=== PATIENT | female | born 1945 | race African-American/Black ===

== ENCOUNTER 2018-03-11 19:38 | Inpatient (IN) ==
[2018-03-11] MEDS ORDERED: ASPIRIN PO ONE (20:10)
--- NOTE | 2018-03-11 20:17 | EKG Report ---
Test Performed on : 03/11/2018 7:59:55 PM Test Reason : cp Blood Pressure : / mmHG Vent. Rate : 105 BPM Atrial Rate : 105 BPM P-R Int : 148 ms QRS Dur : 136 ms QT Int : 378 ms P-R-T Axes : 051 -87 077 degrees QTc Int : 499 ms Atrial-sensed ventricular-paced rhythm Abnormal ECG When compared with ECG of 11-MAR-2018 18:48, (Unconfirmed) Vent. rate has decreased BY 8 BPM Unconfirmed Result
[2018-03-11] MEDS ORDERED: XYLOCAINE-MPF 1%/EPI 1:200,000 INJ ONE (20:21)
[2018-03-11] MEDS ORDERED: MARCAINE 0.5% INJ ONE (20:22)
[2018-03-11 20:27] LABS: BASO# 0.02 X1000 (0.0-0.2); BASO% 0.1 % (0.0-0.8); EOS# 0.14 X1000 (0.0-0.7); HEMATOCRIT 30.1 % (37.0-47.0); HEMOGLOBIN 9.9 g/dL (12.0-16.0); IMM GRAN# 0.04 X1000 (0.0-0.04); IMM GRAN% 0.3 % (0.0-0.5); LYMPH# 2.06 X1000 (1.2-3.4); LYMPH% 15.3 % (20.5-51.1); MCH 29.6 PG (27-31); MCHC 32.9 g/dL (33-37); MCV 90.1 FL (81-99); MONO# 1.91 X1000 (0.11-0.59); MONO% 14.2 % (1.7-9.3); NEUT% 69.1 % (42.2-75.2); PLT 190 X1000 (130-400); RBC 3.34 XMIL (4.2-5.4); RDW 14.9 % (11.5-14.5); WBC 13.47 X1000 (4.8-10.8)
[2018-03-11] MEDS ORDERED: KENALOG-40 IM ONE (20:29)
--- NOTE | 2018-03-11 20:47 | Diag Imaging Result Doc PS360 ---
EXAM: CHEST-2 VIEWS HISTORY: cp TECHNIQUE: Chest two views COMPARISON: 02/08/2018 FINDINGS: The lungs are well expanded. The heart is not enlarged. There is a left-sided pacemaker. The vessels are not distended. There are infiltrates in the lower right lung. No pleural effusions. IMPRESSION: Basilar infiltrates. Electronically signed by Lai Marquez 03/11/2018 8:45 PM
[2018-03-11 20:50] LABS: ALBUMIN 3.3 g/dL (3.5-5.0); CALCIUM 8.5 mg/dL (8.8-10.2); CREATININE 1.5 mg/dL (0.5-0.9); POTASSIUM 4.2 mmol/L (3.5-5.1); TOTAL BILIRUBIN 0.4 mg/dL (0.20-1.00); TOTAL PROTEIN 6.4 g/dL (6.3-8.3)
[2018-03-11 20:58] LABS: PROTIME 13.7 Seconds (11.0-16.0)
[2018-03-11 20:59] LABS: PTT 26.5 Seconds (22.3-41.8)
[2018-03-11 21:11] LABS: CK INDEX 1.3 (0.0-2.5); CK-MB 2.71 ng/mL (0.0-5.0)
[2018-03-11 22:07] LABS: BILIRUBIN URINE NEGATIVE (NEGATIVE); BLOOD URINE NEGATIVE (NEGATIVE); CLARITY CLEAR (CLEAR); COLOR YELLOW; GLUCOSE URINE NEGATIVE (NEGATIVE); KETONE URINE NEGATIVE (NEGATIVE); LEUKOCYTES URINE TRACE (NEGATIVE); NITRITE URINE NEGATIVE (NEGATIVE); PH URINE 6.5; PROTEIN URINE TRACE mg/dL (NEGATIVE); SP GRAVITY URINE 1.005; UROBILINOGEN URINE NORMAL
[2018-03-11] MEDS ORDERED: DUONEB (A & A) ONE (22:13)
[2018-03-11 22:15] LABS: URINE BACTERIA NEGATIVE /HFP; URINE EPITHELIAL CELLS <10 /HPF (<10); URINE RBC <10 /HPF (<10); URINE SMALL ROUND CELLS TRANSITIONAL PRESENT; URINE SOURCE CLEAN CATCH; URINE WBC <10 /HPF (<10)
[2018-03-11] MEDS ORDERED: DUONEB (A & A) INH ONE (22:16)
[2018-03-11] MEDS ORDERED: LASIX IV ONE (22:19)
[2018-03-11] MEDS ORDERED: ALDACTONE PO ONE (22:19)
--- NOTE | 2018-03-11 22:49 | PROVIDER DOCUMENTATION ---
This chart was entered by Yen Candelario Scribe, acting as scribe for Ricardo Arteaga MD. HPI-Chest Pain - General Chief Complaint: Chest Pain Stated Complaint: CP Time Seen by Provider: 03/11/18 19:50 Source: patient, EMS, other ([facility]) Allergies/Adverse Reactions: Patient Allergies Allergy/AdvReac Type Severity Reaction Status Date / Time bee venom protein (honey bee) Allergy Unknown Unknown Verified 02/11/18 17:28 cephalexin monohydrate * Allergy Unknown RASH Verified 02/11/18 17:28 [From Keflex] Penicillins Allergy Unknown ITCHING Verified 02/11/18 17:28 cephalexin [From Keflex] Allergy ITCHING Verified 03/11/18 20:09 Home Medications: Home Medication List Medication Instructions Recorded Confirmed Last Taken Type Aspirin 81 mg PO QHS 30 Days chewtab 05/25/16 03/11/18 Unknown Rx Carvedilol [Coreg] 12.5 mg PO Q12HR@0700,1900 #60 05/25/16 03/11/18 Unknown Rx tablet Melatonin 5 mg PO QHS 30 Days tablet 05/25/16 03/11/18 Unknown Rx [place]-3 Fatty Acids [Fish Oil 1,000 mg PO DAILY 30 Days capsule 05/25/16 Unknown Rx Concentrate] Polyethylene Glycol 3350 [Miralax] 17 gm PO QAM 30 Days powder, 05/25/16 Unknown Rx packet B Complex with Vitamin C [Super B 1 each PO DAILY 02/08/18 03/11/18 Unknown History with Vit C] Cholecalciferol (Vitd3)/Vit K2 [D3 2 each PO DAILY 02/08/18 03/11/18 Unknown History + K2 Dots 1,000 Units Tab] Furosemide [Lasix] 40 mg PO BID 02/08/18 03/11/18 Unknown History Insulin Glargine [Lantus] 30 unit SUBQ BID 02/08/18 03/11/18 Unknown History Levothyroxine [Synthroid] 75 microgm PO QAM 02/08/18 03/11/18 Unknown History Nitroglycerin 0.4 mg SL PRN PRN 02/08/18 03/11/18 Unknown History PRAVAstatin [Pravachol] 40 mg PO DAILY 02/08/18 03/11/18 Unknown History Ferrous Sulfate 325 mg PO DAILY tablet 02/11/18 03/11/18 Unknown Rx - History of Present Illness-CP Nature of Presenting Problem: 72 y/o female presents to ED with intermittent "stretching" chest pain onset 3 days ago. Pt reports associated wheezing, nasal drainage, and cough. Chest wall tenderness upon examination. Pt is alert and oriented. Location: reports: substernal Chest Pain Radiation: reports: no radiation Quality of Pain: reports: other ("stretching") Severity in ED: mild Onset/Duration: 3 days ago Timing: gone now, intermittent Context/Activities at Onset: reports: none Modifying Factors: worse with: palpation Nitro Today/Relief: 0.4 mg x 3, provided by EMS Aspirin Treatment Today: no aspirin today Prior Chest Pain/Cardiac Workup: reports: other Similar Symptoms Previously?: No Recently Seen Here or By Another Healthcare Provider: No Review of Systems - Adult - REVIEW OF SYSTEMS - ADULT Constitutional: denies: chills, fever Eyes: reports: no symptoms reported Ears, Nose, Mouth & Throat: reports: sinus problem. denies: epistaxis Cardiovascular: reports: chest pain. denies: palpitations Respiratory: reports: cough, wheezing. denies: shortness of breath Gastrointestinal: denies: abdominal pain, diarrhea, nausea, vomiting Genitourinary: reports: no symptoms reported Musculoskeletal: denies: back pain, joint pain Integumentary: reports: no symptoms reported Neurological: denies: dizziness/vertigo, seizure Psychiatric: reports: no symptoms reported Endocrine: reports: no symptoms reported Hematologic/Lymphatic: reports: no symptoms reported Allergic/Immunologic: reports: no symptoms reported All Other Systems: Reviewed and Negative Past History - Adult - PAST MEDICAL HISTORY-ADULT Review of Records: reports: Old Records Reviewed, Nursing Assessment Review, Medications Reviewed Major Childhood Illnesses: reports: denies history Cardiovascular: reports: CHF, HTN, hyperlipidemia, pacemaker (/defib) Respiratory: reports: denies history, asthma Gastrointestinal: reports: GERD Obstetrical/Gynecological: reports: denies history, other (breast cancer) Genitourinary: reports: denies history, kidney disease Musculoskeletal: reports: arthritis Neurological: reports: denies history Psychiatric: reports: schizophrenia Endocrine/Immune: reports: denies history, Diabetes, thyroid disorder Other Conditions: reports: denies history, cataract/glaucoma - PRIOR SURGERIES/PROCEDURES Surgical/Procedure History: reports: appendectomy, pacemaker (/defib), BTL, joint replacement (hip), other (cataract removal) - IMMUNIZATION STATUS Childhood Immunizations: See Nurse Assessment Flu Vaccine: See Nurse Assessment - FAMILY HISTORY Family History: reviewed, not pertinent - SOCIAL HISTORY Smoking: quit greater than 1 year Substance Use: none/never Alcohol Use Frequency: never Living Situation: family Physical Exam-General - PHYSICAL EXAM-ADULT Initial Vital Signs Reviewed: Yes - CONSTITUTIONAL General Appearance: appears well, alert, no apparent distress - EYES Eyes: PERRL/EOMI, pink conjunctivae - HEAD, EARS, NOSE, MOUTH & THROAT HENMT: normocephalic/atraumatic, moist mucous membranes, normal ENT inspection - NECK Neck: non-tender, full range of motion - RESPIRATORY Respiratory: lungs clear, normal breath sounds, other (chest wall tenderness) - CARDIOVASCULAR Cardiovascular: normal peripheral pulses, regular rate, rhythm - GASTROINTESTINAL (ABDOMEN) Abdominal Exam: normal bowel sounds, non tender, soft - MUSCULOSKELETAL Back Exam: normal inspection, no CVA tenderness Extremity: normal range of motion, non-tender, normal gait - SKIN Integumentary: normal color, warm/dry - NEUROLOGIC Neurologic: grossly normal - PSYCHIATRIC Psych/Mental Status: normal mood/affect, normal thought content, normal thought process Progress - PLAN OF CARE/RESULTS Progress/Plan/Lab Results: Vital Signs - 8 hr 03/11/18 19:44 03/11/18 22:20 Temperature 98.9 F Pulse Rate 108 H 102 H Respiratory Rate 18 18 Blood Pressure 149/76 O2 Sat by Pulse Oximetry 100 99 Laboratory Results - last 24 hr 03/11/18 03/11/18 03/11/18 19:50 19:50 19:50 WBC 13.47 H RBC 3.34 L Hgb 9.9 L Hct 30.1 L MCV 90.1 MCH 29.6 MCHC 32.9 L RDW Std Deviation 14.9 H Plt Count 190 MPV 11.0 H Immature Gran % (Auto) 0.3 Neut % (Auto) 69.1 Lymph % (Auto) 15.3 L Mason % (Auto) 14.2 H Eos % (Auto) 1.0 Baso % (Auto) 0.1 Immature Gran # (Auto) 0.04 Neut # (Auto) 9.30 H Lymph # (Auto) 2.06 Mason # (Auto) 1.91 H Eos # (Auto) 0.14 Baso # (Auto) 0.02 PT INR PTT (Actin FS) Sodium 132 L Potassium 4.2 Chloride 96 L Carbon Dioxide 24 L Anion Gap 12 BUN 27 H Creatinine 1.5 H Estimated GFR/1.73 m2 34 BUN/Creatinine Ratio 18 Glucose 205 H D Calculated Osmolality 276 Calcium 8.5 L Total Bilirubin 0.40 AST 42 H ALT 65 H Alkaline Phosphatase 116 H Creatine Kinase 204 H Creatine Kinase Index 1.3 CK-MB (CK-2) 2.71 Troponin T < 0.010 Aka-J-Vnuaweebrzs Pept Total Protein 6.4 Albumin 3.3 L Globulin 3.0 Albumin/Globulin Ratio 1.0 Plasma Lactate Urine Source Urine Color Urine Clarity Urine pH Ur Specific [place] Urine Protein Urine Ketones Urine Blood Urine Nitrite Urine Bilirubin Urine Urobilinogen Urine Microscopic RBC Urine WBC Urine Microscopic WBC Ur Epithelial Cells Small Round Cells Urine Bacteria Urine Glucose 03/11/18 03/11/18 03/11/18 19:50 19:50 21:00 WBC RBC Hgb Hct MCV MCH MCHC RDW Std Deviation Plt Count MPV Immature Gran % (Auto) Neut % (Auto) Lymph % (Auto) Mason % (Auto) Eos % (Auto) Baso % (Auto) Immature Gran # (Auto) Neut # (Auto) Lymph # (Auto) Mason # (Auto) Eos # (Auto) Baso # (Auto) PT 13.7 INR 1.00 PTT (Actin FS) 26.5 Sodium Potassium Chloride Carbon Dioxide Anion Gap BUN Creatinine Estimated GFR/1.73 m2 BUN/Creatinine Ratio Glucose Calculated Osmolality Calcium Total Bilirubin AST ALT Alkaline Phosphatase Creatine Kinase Creatine Kinase Index CK-MB (CK-2) Troponin T Eqh-Q-Ymombvyszvx Pept 1186 H Total Protein Albumin Globulin Albumin/Globulin Ratio Plasma Lactate 1.0 Urine Source Urine Color Urine Clarity Urine pH Ur Specific [place] Urine Protein Urine Ketones Urine Blood Urine Nitrite Urine Bilirubin Urine Urobilinogen Urine Microscopic RBC Urine WBC Urine Microscopic WBC Ur Epithelial Cells Small Round Cells Urine Bacteria Urine Glucose 03/11/18 22:00 WBC RBC Hgb Hct MCV MCH MCHC RDW Std Deviation Plt Count MPV Immature Gran % (Auto) Neut % (Auto) Lymph % (Auto) Mason % (Auto) Eos % (Auto) Baso % (Auto) Immature Gran # (Auto) Neut # (Auto) Lymph # (Auto) Mason # (Auto) Eos # (Auto) Baso # (Auto) PT INR PTT (Actin FS) Sodium Potassium Chloride Carbon Dioxide Anion Gap BUN Creatinine Estimated GFR/1.73 m2 BUN/Creatinine Ratio Glucose Calculated Osmolality Calcium Total Bilirubin AST ALT Alkaline Phosphatase Creatine Kinase Creatine Kinase Index CK-MB (CK-2) Troponin T Euj-P-Kwilzjgeiam Pept Total Protein Albumin Globulin Albumin/Globulin Ratio Plasma Lactate Urine Source CLEAN CATCH Urine Color YELLOW Urine Clarity CLEAR Urine pH 6.5 Ur Specific [place] 1.005 Urine Protein TRACE A Urine Ketones NEGATIVE Urine Blood NEGATIVE Urine Nitrite NEGATIVE Urine Bilirubin NEGATIVE Urine Urobilinogen NORMAL Urine Microscopic RBC <10 Urine WBC TRACE A Urine Microscopic WBC <10 Ur Epithelial Cells <10 Small Round Cells TRANSITIONAL PRESENT Urine Bacteria NEGATIVE Urine Glucose NEGATIVE Orders Category Date Time Status Cardiac Monitoring DIRECTED Care 03/11/18 20:43 Active IV Insertion ORDERED Care 03/11/18 20:43 Completed Notify MD of + Sepsis Screen NOW Care 03/11/18 20:43 Active Notify Physician As Ordered Care 03/11/18 20:43 Active cxr [CHEST-2 VIEWS] [RAD] Stat Exams 03/11/18 19:58 Completed BLOOD CULTURE [BLDCUL] Stat Lab 03/11/18 16:30 Ordered BNP [PRO B-NATRIURETIC PEPTIDE] Stat Lab 03/11/18 19:50 Completed CBC WITH ELECTRONIC DIFF [HEME] Stat Lab 03/11/18 19:50 Completed CK PROFILE [SP CHEM] Stat Lab 03/11/18 19:50 Completed CMP [COMPREHENSIVE METABOLIC PANEL] [CHEM] Stat Lab 03/11/18 19:50 Completed LACTATE, PLASMA [CHEM] Lab 03/11/18 23:45 Uncollected LACTATE, PLASMA [CHEM] Lab 03/12/18 02:45 Uncollected LACTATE, PLASMA [CHEM] Stat Lab 03/11/18 21:00 Completed PROTIME WITH INR [COAG] Stat Lab 03/11/18 19:50 Completed PTT [COAG] Stat Lab 03/11/18 19:50 Completed TROPONIN T Stat Lab 03/11/18 19:[address] W/POSS RFLX CULT [URINALYSIS] Stat Lab 03/11/18 22:00 Completed URINE CULTURE [RM] Routine Lab 03/11/18 22:15 Ordered Albuterol 2.5MG/Ipratrop 0.5MG [Duoneb (A & A)] Med 03/11/18 22:13 Discontinued 3 ml .ROUTE .STK-MED ONE Albuterol 2.5MG/Ipratrop 0.5MG [Duoneb (A & A)] Med 03/11/18 22:16 Discontinued 3 ml INH NOW ONE Aspirin Med 03/11/18 20:10 Discontinued 324 mg PO NOW ONE Bupivacaine 0.5% [Marcaine 0.5%] Med 03/11/18 20:22 Discontinued 4 ml INJ NOW ONE Furosemide [Lasix] Med 03/11/18 22:19 Discontinued 40 mg IV NOW ONE Lidocaine Pf 1%/Epi 1:[id number] [Xylocaine-Mpf 1%/Epi 1: Med 03/11/18 20:21 Discontinued 200,000] 4 ml INJ NOW ONE Spironolactone [Aldactone] Med 03/11/18 22:19 Discontinued 25 mg PO NOW ONE Triamcinolone [Kenalog-40] Med 03/11/18 20:29 Discontinued 40 mg IM NOW ONE Aerosol Treatments Routine Oth 03/11/18 22:16 Completed Aerosol Treatments Stat Oth 03/11/18 22:16 Completed Oxygen Device Stat Oth 03/11/18 20:43 Active EKG [EKG] Stat Ther 03/11/18 19:58 Draft Heart score of 3. Result Diagrams: 03/11/18 19:50 03/11/18 19:50 - REASSESSMENT Reassessment #1 Time Reassessed: 21:43 Status: improving (pt states that the pain is mostly gone. The chest wall pain is there when palpated but not when left alone. She declines trigger point injections for the pain and is content to let it resolve on its own) Reassessment #2 Time Reassessed: 21:51 Status: improving (pt has a pleuritic like pain and a chest wall costochondritis pain. Currently no pain. She has CHF, but no previous CAD and has a defibrillator for her chf 30-35% EF and recent caridac cath hear score is 3 = low risk.) Reassessment #3 Time Reassessed: 22:46 Status: unchanged (pt got SOB going to the bathroom, so we decided to start lasix and andwatch her overnight before returning to [facility]) - EKG 1 Time of EKG reading by physician:: 19:59 EKG Read and Signed by:: Ricardo Arteaga EKG Interpretation (*Must complete 3 of following elements*): Abnormal Rate: 105 Rhythm: Atrial-sensed ventricular-paced [place]: normal QRS: normal MO Interval: normal ST Wave: normal - XRAY 1 XRAY Study: Chest Impression: Abnormal (FINDINGS: The lungs are well expanded. The heart is not enlarged. There is a left-sided pacemaker. The vessels are not distended. There are infiltrates in the lower right lung. No pleural effusions. IMPRESSION: Basilar infiltrates. Electronically signed by Lai Marquez 03/11/2018 8:45 PM ) Departure - Departure Date of Disposition Decision: 03/11/18 Time of Disposition Decision: 22:47 DIAGNOSIS: Chest wall discomfort CHF (congestive heart failure) Qualifiers: Heart failure type: unspecified Heart failure chronicity: chronic Qualified Code(s): I50.9 - Heart failure, unspecified Disposition: ADMITTED INPATIENT 09 Certified Medical Emergency: Emergent Condition: Stable Referrals and Follow-Ups: None,PCP [Primary Care Provider] - - Critical Care Note This patient required my direct & personal management of CC.: No Attestation - Physician/ RAMÓN Attestation Patient care was provided by Advanced Practice Provider:: No The physician spent face to face time with patient:: Yes Advanced Practice Provider documentation review:: Supervising physician onsite and consulted in the evaluation and care of this patient. The physician did have a face to face encounter with the patient. This chart was documented by the indicated scribe, (Yen Candelario, Toshia) and accurately reflects the services I performed and decisions made by , Ricardo Arteaga MD, as attested by the provider's signature.
[2018-03-11] MEDS ORDERED: ZAROXOLYN PO ONE (22:59)
[2018-03-12] MEDS ORDERED: NITROGLYCERIN SL PRN (08:32)
[2018-03-12] MEDS: PRAVACHOL PO SCH (09:51)
[2018-03-12] MEDS: BASAGLAR SUBQ SCH ×2 (09:51→21:26)
[2018-03-12] MEDS: FERROUS SULFATE PO SCH (09:51)
[2018-03-12] MEDS: LASIX PO SCH ×2 (09:51→21:26)
[2018-03-12] MEDS: ROCEPHIN 1 GM in NS 50 ML IV SCH (09:51)
[2018-03-12] MEDS: VICON-C PO SCH (09:51)
[2018-03-12] MEDS: FISH OIL CONCENTRATE PO SCH (09:51)
[2018-03-12] MEDS: VITAMIN D PO SCH (09:52)
[2018-03-12] MEDS: MIRALAX PO SCH (09:52)
[2018-03-12] MEDS: DEXILANT PO SCH (09:57)
[2018-03-12] MEDS: ZITHROMAX 500 MG/NS 500 MG/250 ML IVPB IV SCH (11:06)
--- NOTE | 2018-03-12 11:39 | HISTORY AND PHYSICAL ---
PRIMARY CARE PHYSICIAN: Dr. Johanna Alonzo. GROCERY CLERK STOCKING: Dr. Primo King. CHIEF COMPLAINT: Three-day history of wheezing, nasal drainage, cough, and some chest discomfort. HISTORY OF PRESENT ILLNESS: She described the chest discomfort as a "stretching pain" for 3 days that was reproducible with palpation. Her workup showed a white blood cell count of 13.47. Her creatinine is 1.5 but this appears to be around her baseline as she has chronic kidney disease, stage 3. She had some elevation in her LFTs with an AST of 42, ALT 65. Her proBNP was 1186. We did a chest x-ray that showed basilar infiltrates. So, she is being admitted for further evaluation and treatment. PAST MEDICAL HISTORY: Diabetes type 2, anemia, hypertension, hypothyroidism, hyperlipidemia, chronic kidney disease stage 3, breast cancer, GERD, CHF, coronary artery disease. PAST SURGICAL HISTORY: Appendectomy, a double mastectomy, a defibrillator pacemaker placement. FAMILY HISTORY: Her brother has schizophrenia, and she has a family history of diabetes, cancer, and hypertension. SOCIAL HISTORY: She lives with her sister. Denies any tobacco, alcohol or illicit drug use. ALLERGIES: Honey bee, Keflex, penicillin. HOME MEDICATIONS: 1. Aspirin 81 mg p.o. at bedtime. 2. B complex with vitamin C one p.o. daily. 3. Coreg 12.5 mg p.o. q.12 hours. 4. Vitamin D with vitamin K2, 1000 unit tablets 2 each day. 5. Dexilant 60 mg p.o. daily. 6. Ferrous sulfate 325 mg p.o. daily. 7. Lasix 40 mg p.o. b.i.d. 8. Lantus 30 units subcutaneously b.i.d. 9. Synthroid 75 mcg p.o. daily. 10. Melatonin 5 mg p.o. at bedtime. 11. Nitroglycerin 0.4 mg sublingually p.r.n.. 12. [place]-3 fatty acids 1000 mg p.o. daily. 13. MiraLAX 17 g p.o. q.a.m. 14. Pravachol 40 mg p.o. daily. LABORATORY DATA: White blood cell count of 13.47, hemoglobin of 9.9, hematocrit 30.1, platelets 190,000. PT and INR of 13.7 and sodium of 132, potassium 4.2, chloride 96, CO2 of 24. BUN of 27, creatinine 1.5, glucose 205. AST 42, ALT 65, alkaline phosphatase 116. Creatine kinase was 204. CK-MB of 2.71. Troponin less than 0.010. ProBNP of 1186. Plasma lactate of 1. Urinalysis negative. Chest x-ray had basilar infiltrate. EKG with atrial sensed ventricular paced rhythm at 105. REVIEW OF SYSTEMS: She was positive for a subjective fever, chills, body aches, wheezing, nasal drainage, cough, a stretching chest discomfort but not heart pain, shortness of breath. Denied any abdominal pain, constipation, diarrhea, burning or hurting with urination. PHYSICAL EXAMINATION: VITAL SIGNS: On arrival, she had a temperature of 98.9, pulse 108, respirations 18, blood pressure 149/76, saturating 100% on room air. GENERAL: This is a 72-year-old -[place] female who is lying in the bed and answers questions appropriately. HEENT: Normocephalic, atraumatic. Normal ENT inspection. Oropharynx and nares are clear. NECK: Normal inspection. Normal range of motion. LUNGS: With decreased breath sounds bilaterally. Equal lung expansion. Chest wall movement noted. Has a congested cough. HEART: Regular rate and rhythm. No murmurs, rubs, or gallops. ABDOMEN: Soft, nontender, nondistended. Bowel sounds are present x4 quadrants. MUSCULOSKELETAL: She has 5/5 strength x4 extremities. NEUROLOGICAL: The cranial nerves 2-12 appear grossly intact. ASSESSMENT: 1. Bilateral lower lobe pneumonia. 2. Some mild hyponatremia. 3. Leukocytosis, mild, secondary to #1. 4. Diabetes, type 2. 5. Chronic kidney disease, stage 3. PLAN: She was admitted to the medical unit, placed on pattern blood sugars with sliding scale insulin, daily weights, healthy heart diet. I am going to change that to a diabetic diet. Blood cultures x2 are pending. Urine culture is pending. We will give her DuoNeb q.4 hours routinely, Rocephin 1 gram IV q. 24, azithromycin 500 IV q. 24. Continue her home medications as previously identified and recheck a CBC, BMP in the a.m. Dictated by SCOTT Leonardo for Smooth Jo MD cc: SCOTT Leonardo MD Bernice Swain, MD
[2018-03-12] MEDS: DUONEB (A & A) INH SCH ×3 (12:53→23:29)
--- NOTE | 2018-03-12 15:37 | HISTORY AND PHYSICAL ---
HISTORY AND PHYSICAL ADDENDUM: ADDENDUM: Patient seen and examined by myself. Full note dictated and discussed with nurse practitioner. Patient currently is awake, alert. She is somewhat ill appearing. States she is tired and fatigued and does not feel her usual self. States that she is having some wheezing and nasal congestion. PLAN: We will admit her to the hospital, place her on breathing treatments, oxygen, and will follow. Please see full note. It does appear that she may have pneumonia, and we will place her on antibiotics, breathing treatments, and follow. cc: Smooth Jo MD
[2018-03-12] MEDS: TESSALON PO PRN (17:38)
[2018-03-12] MEDS: COREG PO SCH (18:46)
[2018-03-12] MEDS: MELATONIN PO SCH (21:25)
[2018-03-12] MEDS: ASPIRIN PO SCH (21:26)
[2018-03-13] MEDS: DUONEB (A & A) INH SCH ×7 (00:49→22:57)
[2018-03-13] MEDS: TESSALON PO PRN ×2 (04:41→16:02)
[2018-03-13 06:10] LABS: BASO# 0.02 X1000 (0.0-0.2); BASO% 0.2 % (0.0-0.8); EOS# 0.08 X1000 (0.0-0.7); EOS% 0.7 % (0.0-10.0); HEMATOCRIT 26.8 % (37.0-47.0); HEMOGLOBIN 8.8 g/dL (12.0-16.0); IMM GRAN# 0.03 X1000 (0.0-0.04); IMM GRAN% 0.2 % (0.0-0.5); LYMPH# 1.63 X1000 (1.2-3.4); LYMPH% 13.3 % (20.5-51.1); MCH 29.1 PG (27-31); MCHC 32.8 g/dL (33-37); MCV 88.7 FL (81-99); MONO# 2.09 X1000 (0.11-0.59); MONO% 17.1 % (1.7-9.3); MPV 11.1 FL (7.4-10.4); NEUT# 8.37 X1000 (1.4-6.5); NEUT% 68.5 % (42.2-75.2); PLT 194 X1000 (130-400); RBC 3.02 XMIL (4.2-5.4); RDW 14.5 % (11.5-14.5); WBC 12.22 X1000 (4.8-10.8)
[2018-03-13] MEDS: DEXILANT PO SCH (06:21)
[2018-03-13] MEDS: SYNTHROID PO SCH (06:22)
[2018-03-13] MEDS: COREG PO SCH ×2 (06:23→18:33)
[2018-03-13 06:29] LABS: CALCIUM 8.6 mg/dL (8.8-10.2); CREATININE 1.5 mg/dL (0.5-0.9); POTASSIUM 3.8 mmol/L (3.5-5.1)
[2018-03-13] MEDS: FERROUS SULFATE PO SCH (09:02)
[2018-03-13] MEDS: VICON-C PO SCH (09:02)
[2018-03-13] MEDS: PRAVACHOL PO SCH (09:02)
[2018-03-13] MEDS: VITAMIN D PO SCH (09:03)
[2018-03-13] MEDS: LASIX PO SCH ×2 (09:03→21:20)
[2018-03-13] MEDS: MIRALAX PO SCH (09:03)
[2018-03-13] MEDS: ROCEPHIN 1 GM in NS 50 ML IV SCH (09:03)
[2018-03-13] MEDS: BASAGLAR SUBQ SCH ×2 (09:03→21:20)
[2018-03-13] MEDS: FISH OIL CONCENTRATE PO SCH (09:03)
[2018-03-13] MEDS ORDERED: VANCOMYCIN IV PER PHARMACY MISC SCH (09:15)
[2018-03-13] MEDS: ZITHROMAX 500 MG/NS 500 MG/250 ML IVPB IV SCH (09:49)
[2018-03-13] MEDS ORDERED: VANCOMYCIN 1,800 MG in NS 250 ML IV ONE (11:00)
[2018-03-13] MEDS: HUMALOG DOSE (PARKWAY) SUBQ SCH ×3 (12:27→21:20)
--- NOTE | 2018-03-13 13:05 | PROGRESS NOTE ---
DATE: 03/13/2018 SUBJECTIVE: Patient notes that she may be feeling a little bit better today. Still having cough, congestion. Still having some shortness of breath. Has not really been out of bed except for going to the restroom and still gets tired when attempting to do so. OBJECTIVE: Vitals: Temperature 99, pulse 99, respiratory 20. Blood pressure 108/47. General: Patient is awake, alert. She is currently in no respiratory distress. Overall, she does appear to be feeling a little bit better. HEENT: Normocephalic. Neck: Supple. CARDIOVASCULAR: Regular rate. Chest: Faint wheezing. No crackles. Abdomen: Soft, nondistended. Extremities: Moves all extremities. ASSESSMENT: 1. Bilateral lower lobe pneumonia. 2. Gram-positive cocci in urine. 3. Hyponatremia, stable. Acute hepatitis, stable. 4. Diabetes type 2. 5. Chronic kidney disease. PLAN: We will continue Rocephin and azithromycin for pneumonia, added vancomycin for gram- positive cocci in her urine. We will continue to follow. We will add incentive spirometry and further orders as needed. cc: Smooth Jo MD
[2018-03-13] MEDS ORDERED: INSULIN PEN NEEDLES ONE (21:19)
[2018-03-13] MEDS: ASPIRIN PO SCH (21:20)
[2018-03-13] MEDS: MELATONIN PO SCH (21:20)
[2018-03-14] MEDS: DUONEB (A & A) INH SCH ×6 (03:39→22:49)
[2018-03-14] MEDS ORDERED: INSULIN PEN NEEDLES MISC PRN (06:06)
[2018-03-14 06:31] LABS: BASO# 0.02 X1000 (0.0-0.2); BASO% 0.2 % (0.0-0.8); EOS# 0.22 X1000 (0.0-0.7); EOS% 1.7 % (0.0-10.0); HEMATOCRIT 25.4 % (37.0-47.0); HEMOGLOBIN 8.5 g/dL (12.0-16.0); IMM GRAN# 0.03 X1000 (0.0-0.04); IMM GRAN% 0.2 % (0.0-0.5); LYMPH# 1.97 X1000 (1.2-3.4); LYMPH% 15.1 % (20.5-51.1); MCH 29.3 PG (27-31); MCHC 33.5 g/dL (33-37); MCV 87.6 FL (81-99); MONO# 2.12 X1000 (0.11-0.59); MONO% 16.2 % (1.7-9.3); MPV 10.7 FL (7.4-10.4); NEUT# 8.69 X1000 (1.4-6.5); NEUT% 66.6 % (42.2-75.2); PLT 193 X1000 (130-400); RDW 14.2 % (11.5-14.5); WBC 13.05 X1000 (4.8-10.8)
[2018-03-14 06:43] LABS: ALBUMIN 2.6 g/dL (3.5-5.0); CREATININE 1.5 mg/dL (0.5-0.9); POTASSIUM 3.3 mmol/L (3.5-5.1); TOTAL BILIRUBIN 0.7 mg/dL (0.20-1.00); TOTAL PROTEIN 5.9 g/dL (6.3-8.3)
[2018-03-14] MEDS: COREG PO SCH ×2 (06:52→18:18)
[2018-03-14] MEDS: HUMALOG DOSE (PARKWAY) SUBQ SCH ×4 (06:53→21:38)
[2018-03-14] MEDS: SYNTHROID PO SCH (06:57)
[2018-03-14] MEDS: DEXILANT PO SCH (06:57)
[2018-03-14] MEDS: MIRALAX PO SCH (08:01)
[2018-03-14] MEDS: LASIX PO SCH ×2 (08:01→08:17)
[2018-03-14] MEDS: ZITHROMAX PO SCH (08:01)
[2018-03-14] MEDS: VITAMIN D PO SCH (08:01)
[2018-03-14] MEDS: ROCEPHIN 1 GM in NS 50 ML IV SCH (08:01)
[2018-03-14] MEDS: FERROUS SULFATE PO SCH (08:01)
[2018-03-14] MEDS: FISH OIL CONCENTRATE PO SCH (08:01)
[2018-03-14] MEDS: VICON-C PO SCH (08:01)
[2018-03-14] MEDS: BASAGLAR SUBQ SCH ×2 (08:01→21:38)
[2018-03-14] MEDS: PRAVACHOL PO SCH (08:01)
[2018-03-14] MEDS ORDERED: KLOR-CON PO ONE (08:10)
--- NOTE | 2018-03-14 12:47 | PROGRESS NOTE ---
DATE: 03/14/2018 SUBJECTIVE: The patient states she is feeling a little bit better. She is still very tired and fatigued. She is actually sitting in the chair today. She states she still gets short of breath with any real activity. She denies any chest pain or palpitations. PHYSICAL EXAMINATION: Vital Signs: Temperature 97.7, pulse 95, respiratory rate 22, blood pressure 108/96. General: The patient is awake, alert. He is currently in no distress, sitting up in the chair. HEENT: Normocephalic. Neck: Supple. Cardiovascular: Regular rate. Chest: Clear, nonlabored. No crackles, no wheezing. Abdomen: Soft, nondistended. Extremities: Moves all extremities. ASSESSMENT: 1. Bilateral lower lobe pneumonia. 2. Enterococcus faecalis urinary tract infection sensitive to penicillin and resistant to Levaquin. 3. Leukocytosis. White count still 13. 4. Hypokalemia. Potassium is 3.3. 5. Hyponatremia, sodium 129. 6. Chronic renal insufficiency. 7. Diabetes type 2. PLAN: We will stop vancomycin. We will decrease her Lasix to 40 mg daily from 40 b.i.d. due to her hyponatremia. Continue Rocephin and azithromycin and we will follow. cc: Smooth Jo MD
[2018-03-14] MEDS: ASPIRIN PO SCH (21:38)
[2018-03-14] MEDS: MELATONIN PO SCH (21:38)
[2018-03-14] MEDS ORDERED: VANCOMYCIN 1,600 MG in NS 250 ML IV SCH (23:00)
--- NOTE | 2018-03-15 02:43 | EKG Report ---
Test Performed on : 03/15/2018 02:10:50 AM Test Reason : chest pain Blood Pressure : / mmHG Vent. Rate : 093 BPM Atrial Rate : 093 BPM P-R Int : 154 ms QRS Dur : 150 ms QT Int : 388 ms P-R-T Axes : 060 -79 080 degrees QTc Int : 482 ms Atrial-sensed ventricular-paced rhythm Abnormal ECG When compared with ECG of 11-MAR-2018 19:59, (Unconfirmed) Vent. rate has decreased BY 12 BPM Confirmed by Eliseo Barba MD ([id number]) on 03/18/2018 9:13:21 AM
[2018-03-15] MEDS: DUONEB (A & A) INH SCH ×6 (03:08→23:05)
[2018-03-15] MEDS: COREG PO SCH ×2 (06:00→18:05)
[2018-03-15] MEDS: DEXILANT PO SCH (06:00)
[2018-03-15] MEDS: SYNTHROID PO SCH (06:00)
[2018-03-15] MEDS: HUMALOG DOSE (PARKWAY) SUBQ SCH ×4 (06:28→21:26)
[2018-03-15] MEDS: TESSALON PO PRN ×2 (07:56→14:41)
[2018-03-15 07:58] LABS: HEMATOCRIT 25.4 % (37.0-47.0); HEMOGLOBIN 8.5 g/dL (12.0-16.0); MCH 29.1 PG (27-31); MCHC 33.5 g/dL (33-37); MPV 10.9 FL (7.4-10.4); RBC 2.92 XMIL (4.2-5.4); RDW 14.1 % (11.5-14.5); WBC 12.23 X1000 (4.8-10.8)
--- NOTE | 2018-03-15 08:02 | Diag Imaging Result Doc PS360 ---
CHEST-2 VIEWS - 03/15/2018 INDICATION: hypoxia COMPARISON: 03/11/2018 FINDINGS: There is worsening infiltrate in the right lower lobe. There are trace bilateral pleural effusions, worse than on the prior exam. Stable pacemaker. Stable cardiomegaly and mild pulmonary vascular congestion. No pneumothorax. IMPRESSION: Right lower lobe infiltrate suggesting pneumonia. Trace bilateral pleural effusions, worsened since prior. Electronically signed by Ki Juan 03/15/2018 8:00 AM
[2018-03-15 08:14] LABS: ALBUMIN 2.7 g/dL (3.5-5.0); CALCIUM 8.3 mg/dL (8.8-10.2); CREATININE 1.3 mg/dL (0.5-0.9); POTASSIUM 3.8 mmol/L (3.5-5.1); TOTAL BILIRUBIN 0.5 mg/dL (0.20-1.00); TOTAL PROTEIN 6.2 g/dL (6.3-8.3)
[2018-03-15] MEDS: ROCEPHIN 1 GM in NS 50 ML IV SCH (09:06)
[2018-03-15] MEDS: FISH OIL CONCENTRATE PO SCH (09:06)
[2018-03-15] MEDS: PRAVACHOL PO SCH (09:06)
[2018-03-15] MEDS: VITAMIN D PO SCH (09:06)
[2018-03-15] MEDS: FERROUS SULFATE PO SCH (09:07)
[2018-03-15] MEDS: BASAGLAR SUBQ SCH ×2 (09:07→21:34)
[2018-03-15] MEDS: MIRALAX PO SCH (09:07)
[2018-03-15] MEDS: ZITHROMAX PO SCH (09:07)
[2018-03-15] MEDS: VICON-C PO SCH (09:07)
[2018-03-15] MEDS: LASIX PO SCH (09:07)
--- NOTE | 2018-03-15 13:41 | PROGRESS NOTE ---
DATE: 03/15/2018 SUBJECTIVE: Patient notes that she is starting to feel better. Notes that her cough is improving. Has questions about chronic allergies. OBJECTIVE: Vital Signs: On physical, temperature 97.8, pulse 92, respiratory 20, BP 125/62. General: Patient is awake, alert. She is in no distress. Her color actually is improved. Overall, she looks like she is feeling better. HEENT: Normocephalic, atraumatic. Neck: Supple. CV: Regular rate. Chest: Clear. No crackles. No wheezes. Decreased air movement, but equal bilaterally. Abdomen: Soft. Extremities: Moves all extremities. ASSESSMENT: 1. Chronic obstructive pulmonary disease. 2. Bilateral lower lobe pneumonia, improved. 3. Enterococcus faecalis urinary tract infection resistant to Levaquin and sensitive to penicillin. The patient has an allergy to penicillin. We will continue Rocephin. 4. Hyponatremia. Labs currently pending. 5. Type 2 diabetes. 6. Chronic kidney disease. PLAN: Overall, patient is improved. Her color is much improved. Hopefully, if she continues to improve over the next 24 hours, she can be discharged home. cc: Smooth Jo MD
[2018-03-15] MEDS: ASPIRIN PO SCH (21:34)
[2018-03-15] MEDS: MELATONIN PO SCH (21:34)
[2018-03-16] MEDS: DUONEB (A & A) INH SCH ×6 (02:57→23:48)
[2018-03-16] MEDS: DEXILANT PO SCH (06:42)
[2018-03-16] MEDS: COREG PO SCH ×2 (06:42→18:05)
[2018-03-16] MEDS: SYNTHROID PO SCH (06:42)
[2018-03-16] MEDS: HUMALOG DOSE (PARKWAY) SUBQ SCH ×4 (06:42→20:26)
[2018-03-16 07:01] LABS: HEMATOCRIT 24.9 % (37.0-47.0); HEMOGLOBIN 8.3 g/dL (12.0-16.0); MCH 28.9 PG (27-31); MCHC 33.3 g/dL (33-37); MCV 86.8 FL (81-99); MPV 11.2 FL (7.4-10.4); RBC 2.87 XMIL (4.2-5.4); WBC 11.15 X1000 (4.8-10.8)
[2018-03-16 07:18] LABS: ALBUMIN 2.7 g/dL (3.5-5.0); CALCIUM 8.3 mg/dL (8.8-10.2); CREATININE 1.2 mg/dL (0.5-0.9); POTASSIUM 3.8 mmol/L (3.5-5.1); TOTAL BILIRUBIN 0.4 mg/dL (0.20-1.00); TOTAL PROTEIN 6.2 g/dL (6.3-8.3)
[2018-03-16] MEDS: ZITHROMAX PO SCH (09:13)
[2018-03-16] MEDS: VITAMIN D PO SCH (09:13)
[2018-03-16] MEDS: PRAVACHOL PO SCH (09:13)
[2018-03-16] MEDS: MIRALAX PO SCH (09:14)
[2018-03-16] MEDS: FERROUS SULFATE PO SCH (09:14)
[2018-03-16] MEDS: FISH OIL CONCENTRATE PO SCH (09:14)
[2018-03-16] MEDS: LASIX PO SCH (09:14)
[2018-03-16] MEDS: ROCEPHIN 1 GM in NS 50 ML IV SCH ×2 (09:15→14:10)
[2018-03-16] MEDS: BASAGLAR SUBQ SCH ×2 (09:15→20:25)
[2018-03-16] MEDS: VICON-C PO SCH (09:18)
--- NOTE | 2018-03-16 10:20 | Diag Imaging Result Doc PS360 ---
EXAM: CHEST-PORTABLE HISTORY: Acute Shortness of Breath TECHNIQUE: Portable chest COMPARISON: 03/15/2018 FINDINGS: Poor inspiratory effort. The heart remains enlarged and there is a left-sided pacemaker. There is a small right pleural effusion with infiltrates in the right base. IMPRESSION: No interval improvement. Electronically signed by Lai Marquez 03/16/2018 10:18 AM
--- NOTE | 2018-03-16 11:20 | EKG Report ---
Test Performed on : 03/11/2018 6:48:43 PM Test Reason : ER Blood Pressure : / mmHG Vent. Rate : 113 BPM Atrial Rate : 113 BPM P-R Int : 150 ms QRS Dur : 136 ms QT Int : 378 ms P-R-T Axes : 058 -84 069 degrees QTc Int : 518 ms Atrial-sensed ventricular-paced rhythm Abnormal ECG When compared with ECG of 13-FEB-2018 05:25, Vent. rate has increased BY 45 BPM Confirmed by Regina BRANCH, Olaf Multani ([id number]) on 03/18/2018 8:31:17 AM
[2018-03-16] MEDS ORDERED: LASIX IV ONE (13:25)
[2018-03-16] MEDS ORDERED: VANCOMYCIN IV PER PHARMACY MISC SCH (13:30)
--- NOTE | 2018-03-16 13:38 | PROGRESS NOTE ---
DATE: 03/16/2018 SUBJECTIVE: Patient notes she actually was feeling okay this morning. Still having some shortness of breath, but was improving. She got choked taking her morning medications. The patient has had a significant drop in her O2 saturation down to 85%. She has had a couple of breathing treatments. Her oxygen has been increased. She states that she is currently feeling a little bit better. She is still tired and short of breath. OBJECTIVE: Vital Signs: On physical examination, temperature 97.8, pulse 82, respiratory rate 22 and BP 125/62. General: Patient is currently in mild respiratory distress. She is very pleasant to talk with. She does appear to be in more distress today than she was on yesterday's exam. HEENT: Normocephalic, atraumatic. ADRIAN. Neck: Supple. CV: Regular rate. No murmurs. Chest: Greatly decreased breath sounds. Positive rhonchi throughout with faint wheezing. Abdomen: Soft, obese. Extremities: Continues to moves all extremities. ASSESSMENT: 1. Bilateral lower lobe pneumonia. 2. Hyponatremia, stable. 3. Enterococcus faecalis urinary tract infection sensitive to penicillin. 4. Diabetes. 5. Chronic kidney disease stage III. PLAN: Due to her recent episode of significant hypoxemia, we will keep her in the hospital today. We will continue to follow. We will not adjust her antibiotics currently. Chest x-ray is unchanged and we will follow. cc: Smooth Jo MD
[2018-03-16] MEDS ORDERED: VANCOMYCIN 2,000 MG in NS 500 ML IV ONE (14:00)
[2018-03-16] MEDS: TESSALON PO PRN (14:00)
[2018-03-16 16:06] LABS: BILIRUBIN URINE NEGATIVE (NEGATIVE); BLOOD URINE NEGATIVE (NEGATIVE); CLARITY CLEAR (CLEAR); COLOR YELLOW; GLUCOSE URINE NEGATIVE (NEGATIVE); KETONE URINE NEGATIVE (NEGATIVE); LEUKOCYTES URINE NEGATIVE (NEGATIVE); NITRITE URINE NEGATIVE (NEGATIVE); PROTEIN URINE NEGATIVE (NEGATIVE); UROBILINOGEN URINE NORMAL
[2018-03-16 16:07] LABS: URINE BACTERIA NEGATIVE /HFP; URINE CAST NONE SEEN /LPF; URINE CRYSTAL NONE SEEN /HPF; URINE EPITHELIAL CELLS <10 /HPF (<10); URINE RBC <10 /HPF (<10); URINE SOURCE CATH; URINE WBC <10 /HPF (<10); URINE YEAST NONE SEEN /HPF
[2018-03-16] MEDS: ASPIRIN PO SCH (20:25)
[2018-03-16] MEDS: MELATONIN PO SCH (21:00)
[2018-03-17] MEDS: DUONEB (A & A) INH SCH ×6 (03:43→23:10)
[2018-03-17] MEDS: HUMALOG DOSE (PARKWAY) SUBQ SCH ×4 (06:06→23:16)
[2018-03-17] MEDS: COREG PO SCH ×2 (06:35→21:14)
[2018-03-17] MEDS: DEXILANT PO SCH (06:35)
[2018-03-17] MEDS: SYNTHROID PO SCH (06:35)
[2018-03-17 06:59] LABS: HEMATOCRIT 26.6 % (37.0-47.0); HEMOGLOBIN 8.8 g/dL (12.0-16.0); MCH 29.1 PG (27-31); MCHC 33.1 g/dL (33-37); MCV 88.1 FL (81-99); MPV 11.1 FL (7.4-10.4); RBC 3.02 XMIL (4.2-5.4); RDW 14.5 % (11.5-14.5); WBC 13.37 X1000 (4.8-10.8)
[2018-03-17 07:11] LABS: ALBUMIN 2.7 g/dL (3.5-5.0); CALCIUM 8.6 mg/dL (8.8-10.2); CREATININE 1.4 mg/dL (0.5-0.9); TOTAL BILIRUBIN 0.4 mg/dL (0.20-1.00); TOTAL PROTEIN 6.3 g/dL (6.3-8.3)
[2018-03-17] MEDS: PRAVACHOL PO SCH (09:45)
[2018-03-17] MEDS: TESSALON PO PRN ×2 (09:45→15:15)
[2018-03-17] MEDS: MIRALAX PO SCH (09:45)
[2018-03-17] MEDS: VICON-C PO SCH (09:45)
[2018-03-17] MEDS: LASIX PO SCH (09:45)
[2018-03-17] MEDS: ZITHROMAX PO SCH (09:45)
[2018-03-17] MEDS: FERROUS SULFATE PO SCH (09:46)
[2018-03-17] MEDS: BASAGLAR SUBQ SCH ×2 (09:46→23:16)
[2018-03-17] MEDS: VITAMIN D PO SCH (09:46)
[2018-03-17] MEDS: FISH OIL CONCENTRATE PO SCH (09:46)
[2018-03-17] MEDS: ROCEPHIN 1 GM in NS 50 ML IV SCH ×2 (09:47→10:41)
[2018-03-17] MEDS ORDERED: VANCOMYCIN 1,400 MG in NS 250 ML IV SCH (14:00)
[2018-03-17] MEDS: OMNICEF PO SCH ×2 (14:19→21:14)
[2018-03-17] MEDS: MELATONIN PO SCH (21:14)
[2018-03-17] MEDS: ASPIRIN PO SCH (21:14)
[2018-03-18] MEDS: DUONEB (A & A) INH SCH ×6 (03:33→22:54)
[2018-03-18 05:45] LABS: HEMATOCRIT 26.2 % (37.0-47.0); HEMOGLOBIN 8.9 g/dL (12.0-16.0); MCH 29.9 PG (27-31); MCV 87.9 FL (81-99); MPV 9.9 FL (7.4-10.4); RBC 2.98 XMIL (4.2-5.4); RDW 14.5 % (11.5-14.5); WBC 14.21 X1000 (4.8-10.8)
[2018-03-18 06:04] LABS: CALCIUM 8.4 mg/dL (8.8-10.2); CREATININE 1.3 mg/dL (0.5-0.9); POTASSIUM 4.4 mmol/L (3.5-5.1); TOTAL BILIRUBIN 0.4 mg/dL (0.20-1.00); TOTAL PROTEIN 6.6 g/dL (6.3-8.3)
[2018-03-18] MEDS: SYNTHROID PO SCH (06:34)
[2018-03-18] MEDS: COREG PO SCH ×2 (06:34→18:27)
--- NOTE | 2018-03-18 07:19 | PROGRESS NOTE ---
DATE: 03/17/2018 SUBJECTIVE: The patient is seen and examined by myself on the . Currently, she states that she is feeling better. She has had no more coughing, no more choking spells overnight. Tolerated breakfast. OBJECTIVE: Vital signs: Temperature 98.9, pulse 90, pulse 81, respiratory 22, BP 111/78. General: Patient is awake, alert, very pleasant talk with, currently in no respiratory distress. HEENT: Normocephalic. Neck: Supple. CARDIOVASCULAR: Regular rate. No murmurs. Chest: Much more clear, good air movement. Abdomen: Soft. Extremities: Moves all extremities. ASSESSMENT: 1. Bilateral lower lobe pneumonia, appears to be improved. 2. Enterococcus faecalis urinary tract infection. 3. Leukocytosis, stable. 4. Acute on chronic renal failure, stable. 5. Aspiration after swallowing pills, appears to be stable. PLAN: We will move her to the floor and hopefully home soon. cc: Smooth Jo MD
[2018-03-18] MEDS: HUMALOG DOSE (PARKWAY) SUBQ SCH ×4 (08:06→21:32)
[2018-03-18] MEDS: BASAGLAR SUBQ SCH ×2 (09:32→21:31)
[2018-03-18] MEDS: VICON-C PO SCH (09:32)
[2018-03-18] MEDS: MIRALAX PO SCH (09:32)
[2018-03-18] MEDS: OMNICEF PO SCH ×2 (09:32→21:32)
[2018-03-18] MEDS: DEXILANT PO SCH (09:32)
[2018-03-18] MEDS: VITAMIN D PO SCH (09:32)
[2018-03-18] MEDS: PRAVACHOL PO SCH (09:33)
[2018-03-18] MEDS: FISH OIL CONCENTRATE PO SCH (09:34)
[2018-03-18] MEDS: FERROUS SULFATE PO SCH (09:34)
[2018-03-18] MEDS: ZITHROMAX PO SCH (09:34)
--- NOTE | 2018-03-18 10:28 | PROGRESS NOTE ---
DATE: 03/18/2018 SUBJECTIVE: Patient, this morning, notes that she is feeling better. She is having no cough or congestion. No shortness of breath. PHYSICAL EXAMINATION: Vital Signs: Temperature 97.8, pulse 86, respiratory 22, BP 145/69. General: Patient is awake, alert, currently in no distress. Overall, she is pleasant to talk with. HEENT: Normocephalic. Neck: Supple. CARDIOVASCULAR: Regular rate. No murmurs. Chest: Clear and nonlabored. Abdomen: Soft, nondistended, and nontender. ASSESSMENT: 1. Aspiration, improved. 2. Bilateral lower lobe pneumonia, improved. 3. Hyponatremia. Sodium is a little bit lower this morning at 126. We will hold her Lasix and recheck in the a.m. 4. Leukocytosis, stable. 5. Anemia of chronic disease. 6. Type 2 diabetes. 7. Enterococcus faecalis urinary tract infection. PLAN: Will continue patient in the hospital. We will stop her Lasix today. If her sodium is better, we will reconsult [facility] in the morning and will follow. cc: Smooth Jo MD
[2018-03-18] MEDS: ASPIRIN PO SCH (21:31)
[2018-03-18] MEDS: MELATONIN PO SCH (21:32)
[2018-03-18] MEDS: TESSALON PO PRN (21:32)
[2018-03-19] MEDS: DUONEB (A & A) INH SCH ×6 (03:33→23:10)
[2018-03-19] MEDS: DEXILANT PO SCH (06:06)
[2018-03-19] MEDS: SYNTHROID PO SCH (06:06)
[2018-03-19] MEDS: HUMALOG DOSE (PARKWAY) SUBQ SCH ×4 (06:06→21:09)
[2018-03-19] MEDS: COREG PO SCH ×2 (06:06→19:31)
[2018-03-19] MEDS: VITAMIN D PO SCH (10:16)
[2018-03-19] MEDS: ZITHROMAX PO SCH (10:16)
[2018-03-19] MEDS: PRAVACHOL PO SCH (10:17)
[2018-03-19] MEDS: MIRALAX PO SCH (10:17)
[2018-03-19] MEDS: BASAGLAR SUBQ SCH ×2 (10:17→21:08)
[2018-03-19] MEDS: OMNICEF PO SCH ×2 (10:17→21:07)
[2018-03-19] MEDS: FISH OIL CONCENTRATE PO SCH (10:17)
[2018-03-19] MEDS: FERROUS SULFATE PO SCH (10:17)
[2018-03-19] MEDS: VICON-C PO SCH (10:28)
[2018-03-19 10:36] LABS: HEMATOCRIT 26.8 % (37.0-47.0); HEMOGLOBIN 9.1 g/dL (12.0-16.0); MCV 88.4 FL (81-99); RBC 3.03 XMIL (4.2-5.4); RDW 14.9 % (11.5-14.5); WBC 11.48 X1000 (4.8-10.8)
[2018-03-19 10:59] LABS: ALBUMIN 2.9 g/dL (3.5-5.0); CALCIUM 8.5 mg/dL (8.8-10.2); CREATININE 1.3 mg/dL (0.5-0.9); POTASSIUM 4.8 mmol/L (3.5-5.1); TOTAL BILIRUBIN 0.3 mg/dL (0.20-1.00); TOTAL PROTEIN 6.5 g/dL (6.3-8.3)
[2018-03-19] MEDS ORDERED: VRAYLAR PO SCH (21:00)
[2018-03-19] MEDS: ASPIRIN PO SCH (21:07)
[2018-03-19] MEDS: MELATONIN PO SCH (21:07)
[2018-03-20] MEDS: DUONEB (A & A) INH SCH ×6 (02:55→23:07)
[2018-03-20] MEDS: DEXILANT PO SCH (06:20)
[2018-03-20] MEDS: SYNTHROID PO SCH (06:20)
[2018-03-20] MEDS: COREG PO SCH ×2 (06:20→18:25)
[2018-03-20] MEDS: TESSALON PO PRN (06:22)
[2018-03-20 06:56] LABS: HEMATOCRIT 26.1 % (37.0-47.0); HEMOGLOBIN 8.7 g/dL (12.0-16.0); MCH 29.4 PG (27-31); MCHC 33.3 g/dL (33-37); MCV 88.2 FL (81-99); MPV 9.9 FL (7.4-10.4); RBC 2.96 XMIL (4.2-5.4); RDW 14.7 % (11.5-14.5); WBC 11.33 X1000 (4.8-10.8)
[2018-03-20] MEDS: FERROUS SULFATE PO SCH (08:43)
[2018-03-20] MEDS: VITAMIN D PO SCH (08:43)
[2018-03-20] MEDS: OMNICEF PO SCH ×2 (08:43→21:04)
[2018-03-20] MEDS: PRAVACHOL PO SCH (08:43)
[2018-03-20] MEDS: FISH OIL CONCENTRATE PO SCH (08:43)
[2018-03-20] MEDS: MIRALAX PO SCH (08:43)
[2018-03-20] MEDS: BASAGLAR SUBQ SCH ×3 (08:44→21:05)
[2018-03-20] MEDS: VICON-C PO SCH (08:44)
[2018-03-20] MEDS: HUMALOG DOSE (PARKWAY) SUBQ SCH ×3 (08:46→23:06)
--- NOTE | 2018-03-20 11:30 | PROGRESS NOTE ---
DATE: 03/19/2018 SUBJECTIVE: The patient herself notes that she is finally feeling better. She is actually standing up in the room, walking about. Denies any chest pains, palpitations. OBJECTIVE: Vital Signs: Temperature 98 degrees, pulse 87, respiratory 20, BP 120/65. General: The patient is awake, alert. She is in no current respiratory distress. HEENT: Normocephalic. Neck: Supple. CARDIOVASCULAR: Regular rate. Chest: Clear. Abdomen: Soft. Extremities: Moves all extremities. Neurologic: No focal changes. ASSESSMENT: 1. Recent aspiration, improved. 2. Bilateral pneumonia, improved. 3. Hyponatremia. Continues to be problematic. 4. Diabetes. 5. Chronic kidney disease. 6. Urinary tract infection with Enterococcus faecalis. 7. Acute depression. PLAN: We will continue the patient in the hospital. We have talked with [facility]. They do not feel as though she is a candidate to go back to [facility]. However, she does not need to be discharged home currently. Her sister does not want her back until she has improved. We will restart her psychiatric medications with the assistance of her psychiatrist. We will adjust these over the next few days and hopefully can be discharged home. cc: Smooth Jo MD
[2018-03-20 13:13] LABS: CALCIUM 8.7 mg/dL (8.8-10.2); CREATININE 1.3 mg/dL (0.5-0.9); POTASSIUM 5.3 mmol/L (3.5-5.1); TOTAL BILIRUBIN 0.4 mg/dL (0.20-1.00); TOTAL PROTEIN 6.6 g/dL (6.3-8.3)
[2018-03-20] MEDS: VRAYLAR PO SCH ×2 (21:04)
[2018-03-20] MEDS: MELATONIN PO SCH (21:04)
[2018-03-20] MEDS: ASPIRIN PO SCH (21:04)
[2018-03-21] MEDS: DUONEB (A & A) INH SCH ×6 (02:59→21:52)
--- NOTE | 2018-03-21 03:37 | PROGRESS NOTE ---
DATE: 03/20/2018 SUBJECTIVE: Ms. Collazo notes that she is feeling much better. She is able to ambulate. Denies any chest pain, palpitations. Denies any syncope or lightheadedness. She has not had any further issues getting choked. PHYSICAL EXAMINATION: Vital Signs: Temp 97.6, pulse 88, respiratory 20, BP 129 /72. General: Patient is very pleasant to talk with. She is currently calm, alert. She is in no distress. HEENT: Normocephalic. Neck: Supple. Cardiovascular: Regular rate. No murmurs. Chest: Clear, nonlabored. Abdomen: Soft nondistended. ASSESSMENT: 1. Bilateral lower lobe pneumonia. We will continue Omnicef. 2. Hyponatremia. Labs currently pending. We have stopped her antipsychotics with the exception of vyralar . We will continue this. 3. Depression, with history of suicidal ideation. She is currently on several meds from [facility]. We will reconsult [facility]. 4. Chronic kidney disease. 5. Diabetes. PLAN: We will reconsult [facility], start back with the Vyrlar, continue to follow. Further orders as needed. We will expect that she will need to either go to [place] or to rehab on discharge. cc: Smooth Jo MD [facility]
[2018-03-21] MEDS: DEXILANT PO SCH (06:06)
[2018-03-21] MEDS: COREG PO SCH ×2 (06:06→18:45)
[2018-03-21] MEDS: SYNTHROID PO SCH (06:06)
[2018-03-21] MEDS: FISH OIL CONCENTRATE PO SCH (08:43)
[2018-03-21] MEDS: OMNICEF PO SCH ×2 (08:43→22:28)
[2018-03-21] MEDS: LASIX PO SCH (08:43)
[2018-03-21] MEDS: FERROUS SULFATE PO SCH (08:44)
[2018-03-21] MEDS: HUMALOG DOSE (PARKWAY) SUBQ SCH ×5 (08:44→22:30)
[2018-03-21] MEDS: MIRALAX PO SCH (08:44)
[2018-03-21] MEDS: VICON-C PO SCH (08:44)
[2018-03-21] MEDS: VITAMIN D PO SCH (08:44)
[2018-03-21] MEDS: PRAVACHOL PO SCH (08:44)
[2018-03-21 11:39] LABS: CALCIUM 8.4 mg/dL (8.8-10.2); CREATININE 1.5 mg/dL (0.5-0.9); POTASSIUM 4.9 mmol/L (3.5-5.1); TOTAL BILIRUBIN 0.3 mg/dL (0.20-1.00); TOTAL PROTEIN 6.3 g/dL (6.3-8.3)
[2018-03-21] MEDS: BASAGLAR SUBQ SCH ×2 (12:07→22:27)
--- NOTE | 2018-03-21 15:58 | PROGRESS NOTE ---
DATE: 03/21/2018 SUBJECTIVE: Patient has no focal complaints. OBJECTIVE: Blood pressure 134/65, heart rate of 86, respiratory rate of 20, temperature 98.3 degrees, 100% on room air.Cardiovascular: Regular rate and rhythm. Pulmonary: Bilateral breath sounds. Clear to auscultation. GI: Soft, nontender, nondistended. Bowel sounds are positive. LABORATORY DATA: Sodium is 130, creatinine 1.5, AST and ALT are up 66 and 143. I do not really know why, any ways. PROBLEM LIST: 1. Bilateral lower lobe pneumonia on Omnicef, hyponatremia and we stopped antipsychotics but curiously we left her on her diuretic. I would say the most concerning Lasix she has been on Lasix which I think I am going to hold for right now with her hyponatremia and check her urine electrolytes. 2. Depression is stable on current medications. She has been reevaluated by [facility] and was not felt to be appropriate candidate and seems stable. 3. Diabetes is stable currently. DISPOSITION: Plan is to do rehab when she has stabilized hopefully in the next 1 to 2 days. cc: Randy Solares MD
[2018-03-21] MEDS: ASPIRIN PO SCH (22:27)
[2018-03-21] MEDS: VRAYLAR PO SCH ×2 (22:28)
[2018-03-21] MEDS: MELATONIN PO SCH (22:28)
[2018-03-22] MEDS: DUONEB (A & A) INH SCH ×6 (03:24→23:14)
[2018-03-22] MEDS: COREG PO SCH ×3 (05:34→22:33)
[2018-03-22] MEDS: SYNTHROID PO SCH ×2 (05:34→06:05)
[2018-03-22] MEDS: HUMALOG DOSE (PARKWAY) SUBQ SCH ×3 (06:07→22:51)
[2018-03-22 07:06] LABS: BASO# 0.08 X1000 (0.0-0.2); BASO% 0.7 % (0.0-0.8); EOS# 0.18 X1000 (0.0-0.7); EOS% 1.7 % (0.0-10.0); HEMATOCRIT 27.5 % (37.0-47.0); IMM GRAN# 0.01 X1000 (0.0-0.04); IMM GRAN% 0.1 % (0.0-0.5); LYMPH# 1.56 X1000 (1.2-3.4); LYMPH% 14.3 % (20.5-51.1); MCH 30.2 PG (27-31); MCHC 32.7 g/dL (33-37); MCV 92.3 FL (81-99); MONO# 1.45 X1000 (0.11-0.59); MONO% 13.3 % (1.7-9.3); MPV 9.3 FL (7.4-10.4); NEUT# 7.61 X1000 (1.4-6.5); NEUT% 69.9 % (42.2-75.2); PLT 359 X1000 (130-400); RBC 2.98 XMIL (4.2-5.4); RDW 15.7 % (11.5-14.5); WBC 10.89 X1000 (4.8-10.8)
[2018-03-22 07:21] LABS: CALCIUM 8.4 mg/dL (8.8-10.2); CREATININE 1.4 mg/dL (0.5-0.9)
[2018-03-22] MEDS: VICON-C PO SCH (08:33)
[2018-03-22] MEDS: PRAVACHOL PO SCH (08:33)
[2018-03-22] MEDS: DEXILANT PO SCH (08:34)
[2018-03-22] MEDS: FERROUS SULFATE PO SCH (08:34)
[2018-03-22] MEDS: MIRALAX PO SCH (08:34)
[2018-03-22] MEDS: VITAMIN D PO SCH (08:34)
[2018-03-22] MEDS: BASAGLAR SUBQ SCH ×2 (08:34→22:34)
[2018-03-22] MEDS: FISH OIL CONCENTRATE PO SCH (08:34)
[2018-03-22] MEDS: OMNICEF PO SCH ×2 (08:34→22:33)
[2018-03-22] MEDS ORDERED: NS 1,000 ML IV ONE ×2 (11:09→16:19)
[2018-03-22] MEDS ORDERED: ALBUMIN 25% IV ONE ×2 (16:18→22:30)
[2018-03-22] MEDS ORDERED: LASIX IV ONE ×2 (16:18→22:30)
--- NOTE | 2018-03-22 17:07 | PROGRESS NOTE ---
DATE: 03/22/2018 SUBJECTIVE: Patient has no focal complaints. OBJECTIVE: Blood pressure is 140/61, heart rate 72, respiratory rate 20, temperature 97.8 degrees, 100% says on Venturi but I think she is on room air. She is 95 right now on room air. She is in the room with the central sterile technician.Cardiovascular: Regular rate and rhythm. Pulmonary: Bilateral breath sounds diminished at bases. GI: Soft, nontender, nondistended. Bowel sounds are positive. LABORATORY: White count 10, hemoglobin and hematocrit 9 and 27, platelets 359,000. Sodium though is down to 127, creatinine 1.4. Her urine electrolytes though are more consistent with kind of total body sodium loss, her urine sodium is low which is not consistent with SIADH but clinically she looks a bit overloaded and this may be a kind of hyperperfusion situation like in heart failure so I am going to give her some albumin and Lasix, maybe a little bit of fluid and we will see how she does. In any case. 1. Hyponatremia as above. Continue medications and follow. 2. Bilateral lower lobe pneumonia. She is on Omnicef. We will complete a course for 7 days. 3. Depression. She is on her current medications and appears stable. DISPOSITION: Anticipate hopefully discharge tomorrow to rehab. We will continue to follow. cc: Randy Solares MD
[2018-03-22] MEDS: ASPIRIN PO SCH (22:34)
[2018-03-22] MEDS: VRAYLAR PO SCH ×2 (22:34)
[2018-03-22] MEDS: MELATONIN PO SCH (22:34)
[2018-03-23] MEDS: DUONEB (A & A) INH SCH ×7 (03:09→23:47)
[2018-03-23 06:07] LABS: ALBUMIN 3.3 g/dL (3.5-5.0); CALCIUM 8.7 mg/dL (8.8-10.2); CREATININE 1.4 mg/dL (0.5-0.9); PHOSPHORUS 3.4 mg/dL (2.7-4.5); POTASSIUM 4.8 mmol/L (3.5-5.1)
[2018-03-23] MEDS: HUMALOG DOSE (PARKWAY) SUBQ SCH ×5 (06:20→21:30)
[2018-03-23] MEDS: DEXILANT PO SCH (06:22)
[2018-03-23] MEDS: SYNTHROID PO SCH (06:22)
[2018-03-23] MEDS: COREG PO SCH ×2 (06:22→19:33)
[2018-03-23] MEDS: FISH OIL CONCENTRATE PO SCH (09:33)
[2018-03-23] MEDS: OMNICEF PO SCH ×2 (09:33→21:31)
[2018-03-23] MEDS: FERROUS SULFATE PO SCH (09:33)
[2018-03-23] MEDS: VICON-C PO SCH (09:34)
[2018-03-23] MEDS: MIRALAX PO SCH (09:35)
[2018-03-23] MEDS: BASAGLAR SUBQ SCH ×2 (10:24→21:30)
[2018-03-23] MEDS: VITAMIN D PO SCH (10:32)
--- NOTE | 2018-03-23 14:55 | PROGRESS NOTE ---
DATE: 03/23/2018 SUBJECTIVE: To me, she looks much more short of breath today, like she just cannot catch her breath. She is sitting up for lunch this afternoon. OBJECTIVE: Vital Signs: Blood pressure is 112/54, heart rate of 84, respiratory rate 17, temperature 98.1 degrees, 98% on 2 L. Cardiovascular: Regular rate and rhythm. Pulmonary: Bilateral breath sounds clear to auscultation. GI: Soft, nontender, nondistended. Bowel sounds were positive. Extremity Examination: No clubbing or cyanosis. PROBLEM LIST: 1. Chronic obstructive pulmonary disease exacerbation. We will continue breathing treatments and follow. 2. Hyponatremia. That has actually gotten better. Her sodium is up to 135. Her TSH though curiously is 0.09 which is more consistent with low thyroid function. 3. Mild congestive heart failure. We are going to continue some diuresis because she does look a bit volume overloaded. 4. Pneumonia. She seemed to have been doing okay but now she seems to have gotten worse today. Plan was actually to discharge her but she really has not improved much. 5. Depression, schizoaffective. She is stable on current medications. 6. Disposition is hopefully home in the next 1 to 2 days pending improvement in her clinical status. cc: Randy Solares MD [facility]
[2018-03-23] MEDS: LASIX IV SCH (15:07)
--- NOTE | 2018-03-23 15:10 | Diag Imaging Result Doc PS360 ---
EXAM: CHEST-PORTABLE HISTORY: dyspnea TECHNIQUE: Single view of the chest was performed portably. COMPARISON: 03/16/2018 FINDINGS: There is cardiomegaly with left transvenous pacemaker. Pulmonary vascular congestion is noted similar to prior study. There is increasing right pleural effusion. Bibasilar infiltrates are unchanged. IMPRESSION: Increasing small right pleural effusion. Pulmonary vascular congestion and bibasilar infiltrates are suggestive of cardiogenic edema. Correlate clinically. Electronically signed by Yamilet Fernandez 03/23/2018 3:07 PM
[2018-03-23] MEDS ORDERED: PRAVACHOL PO SCH (21:00)
[2018-03-23] MEDS: ASPIRIN PO SCH (21:30)
[2018-03-23] MEDS: VRAYLAR PO SCH ×2 (21:30)
[2018-03-23] MEDS: MELATONIN PO SCH (21:31)
[2018-03-23] MEDS: TESSALON PO PRN (21:35)
[2018-03-24] MEDS: LASIX IV SCH ×2 (02:00→14:24)
[2018-03-24] MEDS: DUONEB (A & A) INH SCH ×4 (03:51→15:46)
[2018-03-24 04:15] LABS: BASO# 0.03 X1000 (0.0-0.2); BASO% 0.3 % (0.0-0.8); EOS# 0.15 X1000 (0.0-0.7); EOS% 1.5 % (0.0-10.0); HEMATOCRIT 24.6 % (37.0-47.0); HEMOGLOBIN 8.3 g/dL (12.0-16.0); IMM GRAN# 0.01 X1000 (0.0-0.04); IMM GRAN% 0.1 % (0.0-0.5); LYMPH# 1.15 X1000 (1.2-3.4); LYMPH% 11.4 % (20.5-51.1); MCH 30.4 PG (27-31); MCHC 33.7 g/dL (33-37); MCV 90.1 FL (81-99); MONO# 1.29 X1000 (0.11-0.59); MONO% 12.7 % (1.7-9.3); MPV 9.9 FL (7.4-10.4); PLT 327 X1000 (130-400); RBC 2.73 XMIL (4.2-5.4); WBC 10.13 X1000 (4.8-10.8)
[2018-03-24 05:43] LABS: CALCIUM 8.4 mg/dL (8.8-10.2); CREATININE 1.4 mg/dL (0.5-0.9); POTASSIUM 4.3 mmol/L (3.5-5.1)
[2018-03-24] MEDS: DEXILANT PO SCH ×2 (05:53→06:48)
[2018-03-24] MEDS: SYNTHROID PO SCH ×2 (05:53→06:03)
[2018-03-24] MEDS: COREG PO SCH ×2 (05:53→06:03)
[2018-03-24] MEDS: HUMALOG DOSE (PARKWAY) SUBQ SCH ×2 (06:04→11:26)
[2018-03-24 07:25] VITALS: BP 129/80
[2018-03-24] MEDS: FISH OIL CONCENTRATE PO SCH (09:23)
[2018-03-24] MEDS: VITAMIN D PO SCH (09:23)
[2018-03-24] MEDS: MIRALAX PO SCH (09:23)
[2018-03-24] MEDS: BASAGLAR SUBQ SCH (09:23)
[2018-03-24] MEDS: FERROUS SULFATE PO SCH (09:23)
[2018-03-24] MEDS: OMNICEF PO SCH (09:23)
[2018-03-24] MEDS: VICON-C PO SCH (09:23)
--- NOTE | 2018-03-24 13:45 | DISCHARGE SUMMARY ---
ADMISSION DATE: 03/11/2018 DISCHARGE DATE: 03/24/2018 DISCHARGE DIAGNOSES: 1. Pneumonia. 2. Hyponatremia. 3. Chronic obstructive pulmonary disease exacerbation. 4. Mild congestive heart failure. 5. Schizoaffective disorder. 6. Type 2 diabetes. CONSULTATIONS: None. HOSPITAL COURSE: Briefly, this is a 72-year-old female presenting with shortness of breath and cough. She is a patient of Dr. Alonzo and Dr. King. She was placed on Rocephin and azithromycin for bilateral lower lobe pneumonia. White count was elevated at 13.4. She slowly clinically improved. She developed gram positives in the urine which was Enterococcus; this was on the twenty-first. She was placed on vancomycin. Currently, she is just on Ceftin, Rocephin, azithromycin. Rocephin was used, but I am pretty sure Enterococcus is not sensitive to Rocephin. She is allergic to ampicillin. I think Zyvox would be a reasonable option. She had some intermittent hypoxia. We will continue to follow. She was evaluated by [facility] and not felt to be appropriate for transfer. Overall, she improved. She did develop some hyponatremia which is why I kept her here a little bit longer, namely to address that. She did reach a low of 127, and then she went up to 135. Creatinine is maintained at 1.4. Sodium is 133 at discharge. Her free T4 though is high at 2, and a TSH of 0.09. So, I have adjusted her Synthroid down to 50. We will see how she does. In any case, the day of discharge she is breathing comfortably. I think she is stable for discharge. DISCHARGE MEDICATIONS: Her discharge medications are as follows: B 12 complex daily, vitamin K two daily, vitamin D 3, Dexilant 60 daily, Lantus 30 b.i.d., Synthroid is decreased to 50 daily, nitroglycerin p.r.n., Pravachol 40 daily, aspirin 81 daily, melatonin 5 at bedtime, Zyvox 600 q. 12 hours for 7 days, Coreg 12.5 q. 12 hours, Omnicef 300 p.o. b.i.d. for another 5 days, ferrous sulfate 325, fish oil 1 g daily, and MiraLAX 17 daily. DISCHARGE CONDITION: Stable. She is going [facility], and we will continue to follow. Would recommend follow up basic in 1 week to recheck her sodium, her creatinine and thyroid function tests in 2 to 4 weeks to ensure her drop in Synthroid is appropriate. She is also on Vraylar; for some reason it is not ordered. She is on 4.5 at bedtime, which is not on her home medications. We will go ahead and start that back as well. TIME SPENT: This is a 32 minute discharge. cc: Randy Solares MD
== END 2018-03-24 17:30 | DRG 871 ==
LOC: P.ED 19:38 → SUATTDRO 23:27 → P.EDIPHOLD 23:27 → P.MEDSURG 03-12 02:06 → P.ICU 03-16 15:17 → P.MEDSURG 03-17 19:05
PROVIDERS: ATTEND Internal Medicine
CPT/HCPCS: 36415; 71010; 71020; 71045; 71046; 80048; 80053; 80069; 81001; 82550; 82553; 82948; 83605; 83880; 83935; 84300; 84439; 84443; 84484; 85025; 85027; 85610; 85730; 87040; 87077; 87088; 87186; 93005; 93010; 94640; 94761; 94799; 96372; 96374; 99285; A9270; J0456; J0696; J1815; J1940; J3301; J3370; J7030; J7040; J7050; P9047; S0020; XXXXX

== ENCOUNTER 2018-04-07 12:26 | Inpatient (IN) ==
--- NOTE | 2018-04-07 12:47 | EKG Report ---
Test Performed on : 04/07/2018 12:36:52 PM Test Reason : SOB/EDEMA Blood Pressure : / mmHG Vent. Rate : 079 BPM Atrial Rate : 079 BPM P-R Int : 148 ms QRS Dur : 136 ms QT Int : 414 ms P-R-T Axes : 042 -78 109 degrees QTc Int : 474 ms Atrial-sensed ventricular-paced rhythm Abnormal ECG When compared with ECG of 15-MAR-2018 02:10, Vent. rate has decreased BY 14 BPM Unconfirmed Result
--- NOTE | 2018-04-07 13:17 | Diag Imaging Result Doc PS360 ---
EXAM: CHEST-2 VIEWS HISTORY: SOB/ EDEMA TECHNIQUE: Chest two views COMPARISON: 03/23/2018 FINDINGS: Poor inspiratory effort. Cardiomegaly and pulmonary edema remain. There are small pleural effusions. There is a left-sided pacemaker. IMPRESSION: Cardiomegaly with pulmonary edema Electronically signed by Lai Marquez 04/07/2018 1:15 PM
[2018-04-07] MEDS ORDERED: LASIX IV ONE (14:04)
[2018-04-07 14:14] LABS: BASO# 0.01 X1000 (0.0-0.2); BASO% 0.1 % (0.0-0.8); EOS# 0.01 X1000 (0.0-0.7); EOS% 0.1 % (0.0-10.0); HEMATOCRIT 23.3 % (37.0-47.0); HEMOGLOBIN 7.9 g/dL (12.0-16.0); LYMPH# 1.76 X1000 (1.2-3.4); LYMPH% 12.7 % (20.5-51.1); MCH 30.7 PG (27-31); MCHC 33.9 g/dL (33-37); MCV 90.7 FL (81-99); MONO% 8.7 % (1.7-9.3); MPV 9.3 FL (7.4-10.4); NEUT# 10.86 X1000 (1.4-6.5); NEUT% 78.4 % (42.2-75.2); PLT 247 X1000 (130-400); RBC 2.57 XMIL (4.2-5.4); RDW 16.1 % (11.5-14.5); WBC 13.84 X1000 (4.8-10.8)
[2018-04-07 14:15] LABS: INR 1.12; PROTIME 15.3 Seconds (11.0-16.0)
[2018-04-07 14:16] LABS: PTT 29.6 Seconds (22.3-41.8)
[2018-04-07 14:32] LABS: ALB/GLOB RATIO 1.4; ALBUMIN 3.6 g/dL (3.5-5.0); CALCIUM 8.5 mg/dL (8.8-10.2); CREATININE 1.8 mg/dL (0.5-0.9); TOTAL BILIRUBIN 0.56 mg/dL (0.20-1.00); TOTAL PROTEIN 6.2 g/dL (6.3-8.3)
[2018-04-07 14:41] LABS: ALLEN TEST YES; BE 2.6 mmoll (-3.0-3.0); BLOOD TYPE ARTERIAL; METHB 0.5 % (0.0-1.5); O2(CT) 10.7 mL/dL (15.0-23.0); O2HB 96.8 % (95.0-99.0); PCO2(98.6) 41 mmHg (35-45); PO2(98.6) 140 mmHg (60-100); SAMPLE BLOOD; SAO2 99.8 % (95.0-100.0); THB 7.6 g/dL (11.5-17.4); pH(98.6) 7.43 (7.35-7.45)
[2018-04-07 14:42] LABS: MODALITY CANNULA
[2018-04-07] MEDS ORDERED: ZOFRAN IV PRN (15:03)
[2018-04-07 15:28] LABS: URINE SOURCE CLEAN CATCH
[2018-04-07 15:35] LABS: BILIRUBIN URINE NEGATIVE (NEGATIVE); BLOOD URINE NEGATIVE (NEGATIVE); COLOR YELLOW; GLUCOSE URINE NEGATIVE (NEGATIVE); KETONE URINE NEGATIVE (NEGATIVE); LEUKOCYTES URINE MODERATE (NEGATIVE); NITRITE URINE NEGATIVE (NEGATIVE); PROTEIN URINE TRACE mg/dL (NEGATIVE); SP GRAVITY URINE 1.009; TURBIDITY URINE CLEAR (CLEAR); UROBILINOGEN URINE NORMAL (NORMAL)
--- NOTE | 2018-04-07 15:38 | PROVIDER DOCUMENTATION ---
This chart was entered by Anita Limon Scribe, acting as scribe for Bebeto aG PA. HPI-General Adult - General Chief Complaint: Edema Stated Complaint: CHF / SHORTNESS OF BREATH Time Seen by Provider: 04/07/18 13:25 Source: patient, family Allergies/Adverse Reactions: Patient Allergies Allergy/AdvReac Type Severity Reaction Status Date / Time bee venom protein (honey bee) Allergy Unknown Unknown Verified 02/11/18 17:28 cephalexin monohydrate * Allergy Unknown RASH Verified 02/11/18 17:28 [From Keflex] Penicillins Allergy Unknown ITCHING Verified 02/11/18 17:28 cephalexin [From Keflex] Allergy ITCHING Verified 03/11/18 20:09 Home Medications: Home Medication List Medication Instructions Recorded Confirmed Last Taken Type Aspirin 81 mg PO QHS 30 Days chewtab 05/25/16 03/11/18 Unknown Rx Carvedilol [Coreg] 12.5 mg PO Q12HR@0700,1900 #60 05/25/16 03/11/18 Unknown Rx tablet Melatonin 5 mg PO QHS 30 Days tablet 05/25/16 03/11/18 Unknown Rx [place]-3 Fatty Acids [Fish Oil 1,000 mg PO DAILY 30 Days capsule 05/25/16 Unknown Rx Concentrate] Polyethylene Glycol 3350 [Miralax] 17 gm PO QAM 30 Days powder, 05/25/16 Unknown Rx packet B Complex with Vitamin C [Super B 1 each PO DAILY 02/08/18 03/11/18 Unknown History with Vit C] Cholecalciferol (Vitd3)/Vit K2 [D3 2 each PO DAILY 02/08/18 03/11/18 Unknown History + K2 Dots 1,000 Units Tab] Furosemide [Lasix] 40 mg PO BID 02/08/18 03/11/18 Unknown History Insulin Glargine [Lantus] 30 unit SUBQ BID 02/08/18 03/11/18 Unknown History Nitroglycerin 0.4 mg SL PRN PRN 02/08/18 03/11/18 Unknown History PRAVAstatin [Pravachol] 40 mg PO DAILY 02/08/18 03/11/18 Unknown History Ferrous Sulfate 325 mg PO DAILY tablet 02/11/18 03/11/18 Unknown Rx Dexlansoprazole [Dexilant] 60 mg PO DAILY 03/12/18 03/12/18 Unknown History CefDINIR [Omnicef] 300 mg PO BID #10 cap 03/19/18 Unknown Rx Cariprazine HCl [Vraylar] 4.5 mg PO QHS #30 capsule 03/24/18 Unknown Rx Levothyroxine [Synthroid] 50 microgm PO DAILY@0700 tablet 03/24/18 Unknown Rx Linezolid [Zyvox] 600 mg PO Q12HR #14 tablet 03/24/18 Unknown Rx - History of Present Illness -Gen Adult Nature of Presenting Problems: 72 yof presents to the ed with c/o BLE edema, cough, sob wheeze since Nov. pt sts sx have been worsening last 2 days Location of Pain/Injury: reports: lower extremity (BLE edema) Pain Radiation: reports: no radiation Quality of Pain: reports: fullness Severity: reports: moderate Onset/Duration: reports: other (jan) Timing: reports: still present, getting worse Context/Activities at Onset: reports: light activity Modifying Factors: improves with: nothing Associated Symptoms: reports: cough, shortness of breath, other (BLE edema). denies: arm pain, back/neck pain, dizziness, fatigue, fever/chills, headaches, nausea, vomiting, weakness Similar Symptoms Previously?: Yes Recently seen or treated by another doctor?: No Review of Systems - Adult - REVIEW OF SYSTEMS - ADULT Constitutional: denies: chills, fever Eyes: reports: no symptoms reported Ears, Nose, Mouth & Throat: reports: no symptoms reported Cardiovascular: reports: edema. denies: chest pain, syncope Respiratory: reports: see HPI, cough, dyspnea on exertion, shortness of breath, wheezing Gastrointestinal: denies: abdominal pain, diarrhea, nausea, vomiting Genitourinary: reports: no symptoms reported Musculoskeletal: denies: back pain, neck pain Integumentary: reports: no symptoms reported Neurological: denies: dizziness/vertigo, headache/migraines, slurred speech, tremors Psychiatric: reports: no symptoms reported Endocrine: reports: no symptoms reported Hematologic/Lymphatic: reports: no symptoms reported Allergic/Immunologic: reports: no symptoms reported All Other Systems: Reviewed and Negative Past History - Adult - PAST MEDICAL HISTORY-ADULT Review of Records: reports: Old Records Reviewed, Nursing Assessment Review, Medications Reviewed, Social history reviewed & non-contributory. Major Childhood Illnesses: reports: denies history Cardiovascular: reports: CHF, HTN, hyperlipidemia, pacemaker (/defib) Respiratory: reports: denies history, asthma Gastrointestinal: reports: GERD Obstetrical/Gynecological: reports: denies history, other (breast cancer) Genitourinary: reports: denies history, kidney disease Musculoskeletal: reports: arthritis Neurological: reports: denies history Psychiatric: reports: schizophrenia Endocrine/Immune: reports: denies history, Diabetes, thyroid disorder Diabetes Type: Type 2 Diabetes controlled by:: PO Meds Other Conditions: reports: denies history, cataract/glaucoma - PRIOR SURGERIES/PROCEDURES Surgical/Procedure History: reports: appendectomy, pacemaker (/defib), BTL, joint replacement (hip), other (cataract removal) - IMMUNIZATION STATUS Childhood Immunizations: See Nurse Assessment Flu Vaccine: See Nurse Assessment - FAMILY HISTORY Family History: reviewed, not pertinent - SOCIAL HISTORY Smoking: quit greater than 1 year Substance Use: denies Alcohol Use Frequency: never Living Situation: family Physical Exam-General - PHYSICAL EXAM-ADULT Initial Vital Signs Reviewed: Yes - CONSTITUTIONAL General Appearance: appears well, alert, mild distress - EYES Eyes: PERRL/EOMI, pink conjunctivae - HEAD, EARS, NOSE, MOUTH & THROAT HENMT: moist mucous membranes, normal ENT inspection - NECK Neck: full range of motion, supple, normal inspection - RESPIRATORY Respiratory: chest non-tender, wheezing, increased rate (22) - CARDIOVASCULAR Cardiovascular: normal peripheral pulses, regular rate, rhythm - GASTROINTESTINAL (ABDOMEN) Abdominal Exam: normal bowel sounds, non tender, soft, other (brown stool) - LYMPHATIC Lymphatic: no adenopathy - MUSCULOSKELETAL Back Exam: normal inspection, no CVA tenderness, no vertebral tenderness Extremity: normal range of motion, no calf tenderness, normal capillary refill, swelling (BLE edema) - SKIN Integumentary: normal color, normal turgor, warm/dry - NEUROLOGIC Neurologic: grossly normal, no motor/sensory deficits - PSYCHIATRIC Psych/Mental Status: normal mood/affect, normal thought content, normal thought process, oriented x 3 Progress - PLAN OF CARE/RESULTS Progress/Plan/Lab Results: Vital Signs - 8 hr 04/07/18 12:38 Temperature 97.9 F Pulse Rate 76 Respiratory Rate 19 Blood Pressure 118/58 O2 Sat by Pulse Oximetry 100 Orders Category Date Time Status Cardiac Monitoring DIRECTED Care 04/07/18 12:44 Active Oxygen Therapy- ED Nursing DIRECTED Care 04/07/18 12:44 Active Saline Loc NOW Care 04/07/18 12:44 Active CHEST-2 VIEWS [RAD] Stat Exams 04/07/18 12:44 Completed CBC WITH ELECTRONIC DIFF [HEME] Stat Lab 04/07/18 12:44 Uncollected CK PROFILE [SP CHEM] Stat Lab 04/07/18 12:44 Uncollected COMPREHENSIVE METABOLIC PANEL [CHEM] Stat Lab 04/07/18 12:44 Uncollected PRO B-NATRIURETIC PEPTIDE Stat Lab 04/07/18 12:44 Uncollected PROTIME WITH INR [COAG] Stat Lab 04/07/18 12:44 Uncollected PTT [COAG] Stat Lab 04/07/18 12:44 Uncollected TROPONIN T Stat Lab 04/07/18 12:44 Uncollected CP/SOB/Palp >45 yrs of Age Stat Oth 04/07/18 12:44 Ordered EKG [EKG] Stat Ther 04/07/18 12:44 Draft Result Diagrams: 04/07/18 13:48 04/07/18 13:48 - REASSESSMENT Reassessment #1 Time Reassessed: 12:55 Status: unchanged Reassessment #2 Time Reassessed: 14:55 Status: unchanged - EKG 1 Time of EKG reading by physician:: 12:36 EKG Read and Signed by:: Ray Garcia EKG Interpretation (*Must complete 3 of following elements*): Abnormal Rate: 79 Rhythm: atrial sensed ventricular paced rhythm [place]: normal QRS: normal [place] Interval: normal ST Wave: normal - XRAY 1 XRAY: Bilateral XRAY Study: Chest (EXAM: CHEST-2 VIEWS HISTORY: SOB/ EDEMA TECHNIQUE: Chest two views COMPARISON: 03/23/2018 FINDINGS: Poor inspiratory effort. Cardiomegaly and pulmonary edema remain. There are small pleural effusions. There is a left-sided pacemaker. IMPRESSION: Cardiomegaly with pulmonary edema Electronically signed by Lai Marquez 04/07/2018 1:15 PM 04/07/18 1315 Interpreting Physician: Lai Marquez MD Dictated Date/Time: 1312 cc: Ray Garcia MD; Johanna Alonzo MD) - CONSULTS/PCP/HOSPITALIST Notification #1 *Consult/PCP/Hospitalist*: hospitalist dr ibrahim Time Discussed: 14:55 Consult Disposition: Admit Departure - Departure Date of Disposition Decision: 04/07/18 Time of Disposition Decision: 15:00 DIAGNOSIS: Hyponatremia, Renal insufficiency, Anasarca CHF exacerbation Qualifiers: Heart failure type: unspecified Qualified Code(s): I50.9 - Heart failure, unspecified Anemia Qualifiers: Anemia type: other cause Other causes of anemia: other cause, not classified Qualified Code(s): D64.89 - Other specified anemias Disposition: ADMITTED INPATIENT 09 Certified Medical Emergency: Emergent Condition: Serious Referrals and Follow-Ups: Johanna Alonzo MD [Primary Care Provider] - - Critical Care Note This patient required my direct & personal management of CC.: Yes Total Time (mins): 38 Critical Care Statement: This patient required my direct personal management to treat or rule out processes, the absence of which, could potentiallly result in sudden, clinically significant life or limb threatening deterioration. Attestation - Physician/ RAMÓN Attestation Patient care was provided by Advanced Practice Provider:: Yes Advanced Practice Provider:: Bebeto Ga Advanced Practice Provider documentation review:: The Mid-level provider documentation, treatment plan and medical decision making was reviewed by the physician who agrees with all treatment and medical decision making by the [facility]. The physician spent face to face time with patient:: Yes (dr garcia at bedside speaking with pt and family) Advanced Practice Provider documentation review:: Supervising physician onsite and consulted in the evaluation and care of this patient. The physician did have a face to face encounter with the patient. This chart was documented by the indicated scribe, (Anita Limon Scribe) and accurately reflects the services I performed and decisions made by me, Bebeto Ga PA, as attested by the provider's signature.
[2018-04-07 15:41] LABS: UR EPITHELIAL CELLS <10 /HPF (<10); URINE BACTERIA NEGATIVE /HPF; URINE RBC <10 /HPF (<10); URINE WBC <10 /HPF (<10)
[2018-04-07 15:48] LABS: IRON SATURATION 25 %; TIBC 232 ug/dL; TOTAL IRON 57 ug/dL (49-151); UNBOUND IRON 175 ug/dL (112-346)
[2018-04-07] MEDS: DUONEB (A & A) INH SCH ×2 (16:00→21:34)
--- NOTE | 2018-04-07 17:00 | HISTORY AND PHYSICAL ---
PRIMARY CARE PROVIDER: Johanna Alonzo MD CLIENT HR MANAGER: Dr. King SUPERVISOR PLASTICS: Dr. Jackson CHIEF COMPLAINT: Shortness of breath and leg swelling. HISTORY OF PRESENT ILLNESS: Ms. Rasheeda Collazo is a 72-year-old -Citizen Of [place] female with a medical history of recent admit March 11, 2018 for bilateral lower lobe pneumonia, mild hyponatremia, leukocytosis. She went to [facility] for outpatient rehab on March 24, 2018. From there she went to go see Dr. Jackson in the office for complaints of increasing shortness of breath and abdominal lower extremity edema. There was an attempt from Dr. Jackson to admit her as a direct admit but there were no [facility] beds available, so she went through the ER. Workup revealed that she is in acute exacerbation of congestive heart failure with a ProBNP of 10,230. Chest x-ray reveals pulmonary edema and again with hyponatremia and anemia. Vital signs are currently stable, she is quite drowsy but she is able to wake up and answer some questions. We will do a transfer to [facility] and consult cardiology for further workup of heart failure. There are no signs of pneumonia on her x-ray. PAST MEDICAL HISTORY: 1. Systolic congestive heart failure, dilated cardiomyopathy. 2. Diabetes mellitus type 2. 3. Anemia. 4. Hypertension. 5. Hypothyroidism. 6. Hyperlipidemia. 7. CKD stage 3. 8. Breast cancer. 9. GERD. 10. Coronary artery disease. 11. Schizoaffective disorder. SURGICAL HISTORY: 1. Appendectomy. 2. Double mastectomy. 3. Defibrillator pacemaker placement. SOCIAL HISTORY: Lives with her sister but has currently been at [facility] for rehab. Denies tobacco, alcohol, or illicit drug use. FAMILY HISTORY: Brother has schizophrenia and there is a family history of diabetes, cancer, and hypertension. ALLERGIES: Honey bee venom, Keflex, and penicillin. HOME MEDICATIONS: Have not been verified but on discharge to [facility], it looks like she was on B12 complex vitamin daily, vitamin K 2 daily, vitamin D3, Dexilant 60 mg p.o. daily , Lantus 30 units twice daily, Synthroid 50 daily, nitroglycerin p.r.n., Pravachol 40 mg daily, aspirin 81 mg daily, melatonin 5 mg nightly, Zyvox 600 every 12 hours for 7 days, that was back on the 24 of March, Coreg 12.5 mg p.o. every 12 hours, Omnicef 300 mg p.o. twice daily for 5 days after discharge on the 3rd, ferrous sulfate 325 mg daily, fish oil 1 gram daily, MiraLAX 17 grams daily. REVIEW OF SYSTEMS: She says that she has been short of breath and she has noticed swelling in her abdomen and lower extremities, but she is drowsy and she will not stay awake long enough to get complete details. She did say that she has had a cough that has been productive , it was dark brown in color but is clear now, otherwise no other complaints. PHYSICAL EXAMINATION: VITAL SIGNS: Temperature 97.9. Heart rate 78. Respiratory rate 13. Blood pressure 113/70. O2 saturation 100% 2 liters nasal cannula. GENERAL: Ms. Rasheeda Collazo is a 72-year-old -Citizen Of [place] female. She is in no acute distress. She is able to answer questions appropriately but she is very drowsy. HEENT: Atraumatic and normocephalic. Pupils are equal, round and reactive to light. Extraocular movements were intact. Mucous membranes are moist. NECK: Trachea midline. CARDIOVASCULAR: S1, S2, regular rate and rhythm. No rubs, gallops, or murmurs. She has 4+ pitting lower extremity edema, unable to palpate pulses due to the significant edema, but feet are warm, +2 radial pulses. Unable to assess for JVD due to body habitus. Negative for carotid bruits. PULMONARY: Mild expiratory wheezes noted. No accessory muscle use or work of breathing noted. She is tolerating 2 liters nasal cannula. GASTROINTESTINAL: Semi-firm, nontender,positive hypoactive bowel sounds x4. EXTREMITIES: Moves all extremities equally with decreased range of motion. NEUROLOGICAL: Oriented x3. Follows commands. Sensory is intact. SKIN: Warm, dry, and intact. LABORATORY DATA: White blood cells 13,000, hemoglobin 7.9, hematocrit 23.3, platelet count 247. INR 1.12. ABG on 3 liters nasal cannula: pH 7.43, PCO2 41, PO2 140, bicarb 27 , base excess 2.6, saturation 96%, lactate 1. Sodium 122, potassium 5, BUN 35, creatinine 1.8, glucose 71, calcium 8.5. Iron 57, total iron binding capacity 232, saturation of iron is 25, unsaturated iron 175. Bilirubin 0.56, AST 140, ALT 181. CK 135. Troponin 0.015. ProBNP 10,230. Albumin 3.6. Urinalysis: Trace protein, moderate leukocytes. IMAGING: Chest x-ray: Cardiomegaly with pulmonary edema. EKG: Ventricularly paced rhythm, rate 79. ASSESSMENT AND PLAN: 1. Acute systolic on chronic congestive heart failure with dilated cardiomyopathy. Followed by Dr. Jackson, who sent the patient to the ER for treatment. Chest x-ray shows pulmonary edema, she has anasarca. In the ER she has only received 40 of IV Lasix, cardiology with Dr. West who is on at this time will be consulted. 2. Mild acute kidney injury on chronic kidney disease. She is followed by Dr. King, so we will consult him because she will need some diuresis. 3. Diabetes mellitus type 2. We will do pattern blood glucoses and sliding scale insulin. 4. Anemia, a little lower than baseline. We will get anemia labs, we will also get stool for occult blood. So far, the iron studies are normal but not all readings are back. Blood pressure is stable. 5. Hypertension. Home medications need to be verified, we will resume once verified. 6. Hypothyroidism. We will continue Synthroid once it is verified. 7. Hyperlipidemia. 8. Gastroesophageal reflux disease. 9. Schizoaffective disorder. 10.Morbid obesity. 11.Deep venous thrombosis prophylaxis will be with SCDs as she is quite anemic at the moment. Dictated by SCOTT Gabriel for Ari Mills MD Patient presenting with Shortness of breath and leg swelling. Chest x-ray: Cardiomegaly with pulmonary edema. I agree with the assessment and plan of the SCOTT. Dr. Mills. cc: SCOTT Gabriel MD [facility]
[2018-04-07] MEDS: BASAGLAR SUBQ SCH (21:44)
[2018-04-07] MEDS: ASPIRIN PO SCH (21:45)
[2018-04-07] MEDS: COREG PO SCH (21:45)
[2018-04-07] MEDS ORDERED: INSULIN PEN NEEDLES ONE (21:46)
[2018-04-08] MEDS: DUONEB (A & A) INH SCH ×4 (03:07→18:59)
[2018-04-08 05:54] LABS: BASO# 0.01 X1000 (0.0-0.2); BASO% 0.1 % (0.0-0.8); EOS# 0.02 X1000 (0.0-0.7); EOS% 0.1 % (0.0-10.0); HEMOGLOBIN 8.1 g/dL (12.0-16.0); IMM GRAN# 0.11 X1000 (0.0-0.04); IMM GRAN% 0.8 % (0.0-0.5); LYMPH# 1.46 X1000 (1.2-3.4); MCHC 33.8 g/dL (33-37); MCV 88.9 FL (81-99); MONO# 1.28 X1000 (0.11-0.59); MONO% 8.8 % (1.7-9.3); MPV 9.3 FL (7.4-10.4); NEUT# 11.72 X1000 (1.4-6.5); NEUT% 80.2 % (42.2-75.2); PLT 255 X1000 (130-400)
[2018-04-08 06:00] LABS: INR 1.12; PROTIME 15.3 Seconds (11.0-16.0)
[2018-04-08 06:01] LABS: PTT 28.4 Seconds (22.3-41.8)
[2018-04-08] MEDS: COREG PO SCH ×2 (06:03→18:02)
[2018-04-08] MEDS: SYNTHROID PO SCH (06:03)
[2018-04-08 07:02] LABS: ALB/GLOB RATIO 1.3; ALBUMIN 3.5 g/dL (3.5-5.0); CALCIUM 8.4 mg/dL (8.8-10.2); CREATININE 1.8 mg/dL (0.5-0.9); POTASSIUM 5.3 mmol/L (3.5-5.1); TOTAL BILIRUBIN 0.4 mg/dL (0.20-1.00); TOTAL PROTEIN 6.1 g/dL (6.3-8.3)
--- NOTE | 2018-04-08 07:35 | Diag Imaging Result Doc PS360 ---
CHEST-PORTABLE - 04/08/2018 INDICATION: sob COMPARISON: 04/07/2018 FINDINGS: Stable biventricular pacemaker. Stable severe cardiomegaly and pulmonary vascular congestion. Stable mild pulmonary edema. There are small pleural effusions. There is improved aeration of both lower lobes with better visualization of both hemidiaphragms. No new infiltrates. IMPRESSION: Improved aeration of both lower lobes. Electronically signed by Ki Juan 04/08/2018 7:33 AM
--- NOTE | 2018-04-08 08:14 | EKG Report ---
Test Performed on : 04/08/2018 07:11:14 AM Test Reason : chf Blood Pressure : / mmHG Vent. Rate : 076 BPM Atrial Rate : 076 BPM P-R Int : 148 ms QRS Dur : 134 ms QT Int : 430 ms P-R-T Axes : 060 -82 087 degrees QTc Int : 483 ms Atrial-sensed ventricular-paced rhythm Biventricular pacemaker detected Abnormal ECG When compared with ECG of 07-APR-2018 12:36, (Unconfirmed) Vent. rate has decreased BY 3 BPM Confirmed by Mikael BRANCH, Aditya Mayer ([id number]) on 04/09/2018 10:47:00 AM
[2018-04-08] MEDS: MIRALAX PO SCH (10:14)
[2018-04-08] MEDS: VITAMIN D PO SCH (10:15)
[2018-04-08] MEDS: BASAGLAR SUBQ SCH ×2 (10:15→21:22)
[2018-04-08] MEDS: PRAVACHOL PO SCH (10:15)
[2018-04-08] MEDS: VICON-C PO SCH (10:15)
[2018-04-08] MEDS: FERROUS SULFATE PO SCH (10:15)
[2018-04-08] MEDS ORDERED: KAYEXALATE PO ONE (14:56)
[2018-04-08] MEDS ORDERED: LASIX IV SCH ×2 (15:00→16:00)
--- NOTE | 2018-04-08 15:25 | PROGRESS NOTE ---
DATE: 04/08/2018 SUBJECTIVE: Patient resting in bed. OBJECTIVE: Vital signs: Temperature 97.6 degrees, pulse 78, respiratory rate 18, blood pressure 111/72, oxygen saturation is 100%. HEENT: She is atraumatic, normocephalic. Cardiovascular: S1, S2. Respiratory: No rales or rhonchi noted. Abdomen: Full, nontender, no masses felt. Extremities: Has 1 to 2+ edema in the lower extremities. Central nervous system: No obvious focal deficits noted. LABS: WBC is 14.6, hematocrit 24 with a platelet count of 255,000, INR is 1.12, sodium 121, potassium 5.3, chloride 84, bicarb is 24, BUN is 38, creatinine is 1.8. X-ray chest shows severe cardiomegaly with pulmonary vascular congestion and also stable mild pulmonary edema. ASSESSMENT AND PLAN: 1. Acute systolic congestive heart failure. Continue diuretics. Monitor intakes and outputs, as well as daily weights. Cardiology consulted. 2. Chronic kidney disease. This may most likely worsen while patient is on diuretics. We will have to avoid nephrotoxic agent. 3. Hyponatremia. Will restrict water intake. Continue patient on diuretics. Follow up on sodium level. 4. Anemia follow up on anemia workup and also follow up on hemoglobin, hematocrit. Transfuse packed red blood cells if needed. 5. Hypothyroidism. Continue levothyroxine. 6. Gastroesophageal reflux disease. Proton pump inhibitor. 7. Deep vein thrombosis prophylaxis. Lovenox. cc: Ari Mills MD
[2018-04-08] MEDS: APRESOLINE PO SCH (18:02)
[2018-04-08] MEDS: ISORDIL PO SCH (18:02)
[2018-04-08] MEDS: LASIX 100 MG in NS 25 ML IV SCH (18:03)
--- NOTE | 2018-04-08 18:34 | PROGRESS NOTE ---
DATE: 04/08/2018 SUBJECTIVE: Patient continues with some shortness of breath. She continues on oxygen per nasal cannula. There has been no chest pain. She has demonstrated modest diuresis thus far. OBJECTIVE: Blood pressure 152/65, heart rate 84, oxygen saturation 97% on nasal cannula oxygen at 3 L/minute.Neck: Jugular venous distention is difficult to discern. Chest: Auscultation of the chest reveals diminished breath sounds at bases bilaterally. Cardiac Exam: Reveals a regular rate and rhythm without appreciable murmur or gallop. Abdomen: Distended. Extremities: Demonstrate 3+ pitting edema. LABORATORY DATA: Includes a white blood cell count of 14.6, hematocrit 24.0, hemoglobin 8.1. Sodium 121, potassium 5.3, chloride 84, BUN 38, creatinine 1.8, glucose 140. Initial troponin 0.015, followup troponin 0.015, pro B-natriuretic peptide level on admission 10,230. Albumin 3.5. IMPRESSION: 1. Acute on chronic systolic heart failure. 2. Dilated cardiomyopathy moderate severity. 3. Chronic kidney disease stage 3. 4. Obesity. 5. Atherosclerotic coronary disease. 6. Hypertension. 7. Hyperlipidemia. 8. Schizoaffective disorder. RECOMMENDATIONS: 1. Continue efforts to diurese with intravenous Lasix. 2. Continue Coreg at present dose. 3. Add low-dose hydralazine/isosorbide. cc: Kolby Jackson MD
[2018-04-08 19:15] LABS: URINE SOURCE CLEAN CATCH
[2018-04-08 19:17] LABS: BILIRUBIN URINE NEGATIVE (NEGATIVE); BLOOD URINE NEGATIVE (NEGATIVE); COLOR YELLOW; GLUCOSE URINE NEGATIVE (NEGATIVE); KETONE URINE NEGATIVE (NEGATIVE); LEUKOCYTES URINE NEGATIVE (NEGATIVE); NITRITE URINE NEGATIVE (NEGATIVE); PROTEIN URINE TRACE mg/dL (NEGATIVE); TURBIDITY URINE CLEAR (CLEAR); UROBILINOGEN URINE NORMAL (NORMAL)
[2018-04-08 19:18] LABS: UR EPITHELIAL CELLS <10 /HPF (<10); URINE BACTERIA NEGATIVE /HPF; URINE RBC <10 /HPF (<10); URINE WBC <10 /HPF (<10)
[2018-04-08] MEDS: ASPIRIN PO SCH (21:22)
[2018-04-09] MEDS: DUONEB (A & A) INH SCH ×5 (00:42→18:46)
--- NOTE | 2018-04-09 01:10 | NEPHROLOGY CONSULTATION ---
DATE: 04/08/2018 REASON FOR CONSULTATION: Chronic kidney disease and volume overload. HISTORY OF PRESENT ILLNESS: Ms. Collazo is a 72-year-old woman who is known to us from previous admissions and outpatient clinic. She has dilated cardiomyopathy, diabetes, chronic kidney disease. She came to the hospital because she states she has had progressively worsening fluid retention with increasing swelling, rising weight, and worsening shortness of breath. There were no particular crises, but her symptoms have been progressively worse, prompting her presentation to the emergency room. Cough but no sputum. No chills, fever, sweats, night sweats, etc. PAST MEDICAL HISTORY: As above. 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 MEDICATIONS: Home medications include multivitamin, vitamin K, D3, Dexilant, insulin, Synthroid, pravastatin, aspirin, melatonin, Zyvox, Coreg, Omnicef, ferrous sulfate, MiraLAX. ALLERGIES: Cephalexin and penicillin. SOCIAL HISTORY: She is currently in [facility] for rehab. Normally lives with her sister. No alcohol or tobacco. FAMILY HISTORY: Noncontributory. REVIEW OF SYSTEMS: Otherwise noncontributory. She admits a 50-pound weight gain. OBJECTIVE: Vital Signs: Blood pressure 121/79, heart rate 81, respirations 21, afebrile. General: No acute distress. Skin: Warm and dry. HEENT: Conjunctivae are pink. Neck: Neck veins are not appreciated. Oropharynx is clear. Heart: PMI is difficult to palpate. Heart is regular. Lungs: Equal, with crackles. Abdomen: Obese and somewhat tense. Bowel sounds are present. Extremities: She has 4+ edema with tense edema up to the trunk and on the upper extremities as well. IMPRESSION: Volume overload, cardiorenal in origin. She has had 1 L of urine output. We will place a Sanchez catheter and advance her diuretic regimen. No diagnostic studies are required with regard to her kidneys at this time. Electrolytes demonstrate significant hyponatremia that is stable at this point. We will observe as we treat. cc: Primo King MD
[2018-04-09 05:17] LABS: BASO# 0.01 X1000 (0.0-0.2); BASO% 0.1 % (0.0-0.8); EOS# 0.02 X1000 (0.0-0.7); EOS% 0.2 % (0.0-10.0); HEMATOCRIT 23.5 % (37.0-47.0); IMM GRAN# 0.07 X1000 (0.0-0.04); IMM GRAN% 0.5 % (0.0-0.5); LYMPH# 1.31 X1000 (1.2-3.4); LYMPH% 10.2 % (20.5-51.1); MCH 30.4 PG (27-31); MCV 89.4 FL (81-99); MONO# 1.46 X1000 (0.11-0.59); MONO% 11.4 % (1.7-9.3); MPV 9.2 FL (7.4-10.4); NEUT# 9.92 X1000 (1.4-6.5); NEUT% 77.6 % (42.2-75.2); PLT 255 X1000 (130-400); RBC 2.63 XMIL (4.2-5.4); RDW 16.3 % (11.5-14.5); WBC 12.79 X1000 (4.8-10.8)
[2018-04-09 05:47] LABS: ALB/GLOB RATIO 1.2; ALBUMIN 3.2 g/dL (3.5-5.0); CREATININE 1.8 mg/dL (0.5-0.9); POTASSIUM 4.6 mmol/L (3.5-5.1); TOTAL BILIRUBIN 0.35 mg/dL (0.20-1.00); TOTAL PROTEIN 5.9 g/dL (6.3-8.3)
[2018-04-09] MEDS: LASIX 100 MG in NS 25 ML IV SCH ×2 (06:01→16:40)
[2018-04-09] MEDS: COREG PO SCH ×2 (06:02→18:27)
[2018-04-09] MEDS: SYNTHROID PO SCH (06:02)
[2018-04-09] MEDS: VICON-C PO SCH (08:59)
[2018-04-09] MEDS: FERROUS SULFATE PO SCH (08:59)
[2018-04-09] MEDS: MIRALAX PO SCH ×2 (08:59→20:51)
[2018-04-09] MEDS: VITAMIN D PO SCH (08:59)
[2018-04-09] MEDS: PRAVACHOL PO SCH (08:59)
[2018-04-09] MEDS: APRESOLINE PO SCH ×3 (09:00→16:40)
[2018-04-09] MEDS: BASAGLAR SUBQ SCH ×2 (09:00→20:50)
[2018-04-09] MEDS: ISORDIL PO SCH ×3 (09:00→16:40)
[2018-04-09] MEDS ORDERED: SAMSCA PO ONE ×2 (13:20→13:43)
[2018-04-09] MEDS: ZAROXOLYN PO SCH (13:27)
--- NOTE | 2018-04-09 15:33 | PROGRESS NOTE ---
DATE: 04/09/2018 SUBJECTIVE: This morning Ms. Collazo refers to be doing fairly okay. She still remains remarkably edematous almost everywhere. OBJECTIVE: Vital Signs: Blood pressure is 129/63, pulse 87, respiration 17, and temperature 97.7. The patient was saturating 100% on 2 L. General: Ms. Collazo is a 72-year-old female. She is in bed, not seemingly distressed. HEENT: Mucosa is pink. Anicteric. Acyanotic. Neck: Supple. There is positive JVD. Chest: Air entry is bilaterally reduced. There are diffuse crackles posteriorly as well as end-expiratory wheezing. Gastrointestinal: The abdomen is soft. Bowel sounds are present. There is a lot of edema in the abdominal wall. Extremities: There is about 4+ pedal exam. Pulses are extremely hard to feel. ZOOLOGY TEACHER: The patient is awake, alert, and oriented. LABORATORY DATA: WBC is 12.7. Hemoglobin is 8.0. Platelet count is 255. Chemistry is also reviewed. Sodium is 121, potassium 5.3, chloride 84, and bicarb 24. Creatinine is still 1.8. A chest x-ray which was done yesterday still shows some edema but there is improved aeration of both lungs. On review of the patient's previous data an echocardiogram which was done in 2017 showed an ejection fraction of about 30% to 35% with a pulmonary systolic pressure of 50 mmHg. She also had a left heart cath in 2014 which did show small vessel disease involving the 3 major coronary arteries. No major epicardial lesions were noted. ASSESSMENT: 1. Fluid overload likely due to congestive heart failure. The patient is on diuretic therapy. 2. Acute on chronic systolic heart failure with ejection fraction of 30% to 35%. Cardiology is on board. We will continue with the diuretic. 3. Dilated cardiomyopathy secondary to ischemic heart disease. 4. Chronic kidney disease stage 3, presumably cardiorenal in origin. 5. Hypertension. 6. History of schizoaffective disorder. 7. Transaminitis secondary to congestive hepatopathy. So, in general I think Ms. Collazo is doing fairly okay. Today she had a 1,250 urine output. She has a negative balance of 3,044. Her weight is currently 245. There is none charted since yesterday and today. She is slightly hyponatremic which I think I it is all related to the ongoing fluid overload and possibly renin angiotensin aldosterone pathway being interfered. We will give her a dose of Samsca to see if that will improve. cc: Kashmir Garcia MD
--- NOTE | 2018-04-09 15:36 | NEPHROLOGY PROGRESS NOTE ---
DATE: 04/09/2018 SUBJECTIVE: She feels she is definitely better today. Her swelling has improved, especially in the right leg. She does relate episodes of what she describes as panic attacks where she has some difficulty with breathing and anxiety. OBJECTIVE: Blood pressure 129/63, heart rate 86, respiratory rate 17 and afebrile. Intake 500 mL, output 1300 mL. Net -3 L since admission. No acute distress. Skin: Warm and dry. HEENT: Conjunctivae are pink. Neck: Neck veins are not appreciated. Trachea is midline. Heart: Regular. Somewhat distant. Lungs: Equal with no crackles anteriorly. Distant. Abdomen: Obese, soft and nontender. Bowel sounds are present. Extremities: 3+ edema. No clubbing or cyanosis. IMPRESSION: Volume overload with acute kidney injury overlying chronic kidney disease. She is responding adequately to her current diuretic regimen, so we will continue the same without alteration. Electrolytes and acid base are in target. May give a dose of metolazone today and tomorrow in addition to her furosemide. cc: Primo King MD
[2018-04-09] MEDS: ASPIRIN PO SCH (20:50)
--- NOTE | 2018-04-09 23:33 | CARDIOLOGY PROGRESS NOTE ---
DATE: 04/09/2018 SUBJECTIVE: Ms. Collazo reports she is feeling better. Her breathing has improved. PHYSICAL EXAMINATION: Vital signs: Afebrile, heart rate 86, blood pressure 129/63. Her I's and O's have been negative over the course of the hospitalization. She is -3 L with 1 void not measured. General: No acute distress. Cardiovascular: She sounds to be in a regular rate and rhythm. I do not hear any murmurs. She has 1+ bilateral lower extremity edema that actually seems to be more of anasarca. She has warm and well-perfused extremities. Chest: Clear bilaterally. She has no increased work of breathing. Abdomen: Soft, nontender. PERTINENT DATA: White count 12.8, hematocrit 23, platelet count 255,000. Sodium is 121, potassium is 4.6, BUN is 38, creatinine is 1.8. ASSESSMENT: Ms. Collazo is a 72-year-old female with a history of chronic kidney disease and nonischemic cardiomyopathy. PLAN: I will increase her hydralazine to 25 t.i.d. We will continue her on ISDN. She has been ordered Lasix by Dr. King. She does have a marked hyponatremia. I will give her 15 mg of Samsca x1. We will recheck laboratories in the morning, including proBNP and basic metabolic panel as well as magnesium. cc: Mark Mena MD
[2018-04-10] MEDS: DUONEB (A & A) INH SCH ×4 (02:59→20:36)
[2018-04-10] MEDS: LASIX 100 MG in NS 25 ML IV SCH ×2 (05:58→17:12)
[2018-04-10] MEDS: COREG PO SCH ×2 (06:07→21:49)
[2018-04-10] MEDS: SYNTHROID PO SCH (06:07)
[2018-04-10 06:36] LABS: CALCIUM 8.5 mg/dL (8.8-10.2); CREATININE 1.6 mg/dL (0.5-0.9); MAGNESIUM 1.9 mg/dL (1.5-2.7); POTASSIUM 3.9 mmol/L (3.5-5.1)
--- NOTE | 2018-04-10 08:26 | Diag Imaging Result Doc PS360 ---
EXAM: CHEST-PORTABLE INDICATION: dyspnea TECHNIQUE: One view COMPARISON: 04/08/2018 FINDINGS: Inspiration is suboptimal. Pulmonary venous congestion and mild edema are essentially stable. No new consolidation is identified. Cardiac silhouette is stable. IMPRESSION: Essentially stable chest. Electronically signed by Miguel Angel Layton 04/10/2018 8:23 AM
[2018-04-10] MEDS: ZAROXOLYN PO SCH (08:34)
[2018-04-10] MEDS: PRAVACHOL PO SCH (08:34)
[2018-04-10] MEDS: FERROUS SULFATE PO SCH (08:34)
[2018-04-10] MEDS: MIRALAX PO SCH (08:34)
[2018-04-10] MEDS: APRESOLINE PO SCH ×3 (08:34→17:12)
[2018-04-10] MEDS: ISORDIL PO SCH ×3 (08:34→17:12)
[2018-04-10] MEDS: VICON-C PO SCH (08:34)
[2018-04-10] MEDS: VITAMIN D PO SCH (08:34)
[2018-04-10] MEDS: BASAGLAR SUBQ SCH ×2 (08:49→21:45)
--- NOTE | 2018-04-10 13:10 | PROGRESS NOTE ---
DATE: 04/10/2018 SUBJECTIVE: This morning, Ms. Collazo refers to be feeling a little better. She still has some residual shortness of breath, but no cough, no sputum production and no chest pain. Ms. Collazo said she slept pretty well last night. OBJECTIVE: Vital signs: Blood pressure is 132/69, pulse is 73, respirations 16, temperature 98.1 degrees. The patient is saturating 100% on 3 L. General: Ms. Collazo is a 72-year-old female. She is in bed. She seems to be in mild respiratory distress. HEENT: Mucosa is pink and moist. Anicteric. Acyanotic. Neck: Supple. There is still positive JVD. Respiratory: Air entry is bilaterally reduced. There are still diffuse wet crackles posteriorly. No wheezing today. Cardiovascular: Regular rate and rhythm. No murmurs, no rubs, no gallops. Gastrointestinal: Abdomen is soft, distended, but nontender. There is edema around the lateral aspect of the abdominal wall. Extremities: 4+ pedal edema. CREDIT SPECIALIST: Patient is awake, alert, and oriented. LABORATORY DATA: WBC is 12.279, hemoglobin is 8, platelet count of 255,000. Chemistry is also reviewed. Sodium is 130, potassium is 3.9, chloride is 88, bicarb is 31, BUN is down to 37 and creatinine is also down to 1.6. IMAGING: A chest x-ray this morning shows fairly stable. No new consolidation. INPUT AND OUTPUT: Urine output was 6300 overnight. The patient is currently negative balance of 8454. Her weight is 245, it was 248 about 3 days ago. ASSESSMENT: 1. Fluid overload secondary to congestive heart failure. 2. Acute on chronic systolic heart failure with ejection fraction of 30 to 35 percent. We will continue with the patient's current medications. Cardiology is on board. 3. Dilated cardiomyopathy secondary to ischemic heart disease. Noted. 4. Chronic kidney disease, stage 3, presumably cardiorenal in origin. We will continue to use diuretics to address the underlying pathophysiology. 5. Hypertension, controlled. 6. History of schizoaffective disorder. Noted. 7. Transaminitis, likely due to congestive hepatopathy. However, an underlying steatohepatitis cannot entirely be ruled out. cc: Kashmir Garcia MD
--- NOTE | 2018-04-10 18:51 | CARDIOLOGY PROGRESS NOTE ---
DATE: 04/10/2018 SUBJECTIVE: Ms. Collazo reports she feels a little bit better. She is still coughing quite a bit and it seems mostly dry. PHYSICAL EXAMINATION: Vital Signs: Physical she is afebrile. Heart rate is 76, blood pressure 132/69. Her I's and O's were markedly negative yesterday at around 5.4 L. Thus far she is -8 0.4 L. General: She is in no acute distress. Cardiovascular: She sounds to be in a regular rate and rhythm. I do not hear any murmurs. She continues to be quite edematous, 1+ bilateral lower extremity edema and somewhat diffusely edematous notably the left upper extremity has lymphedema, consistent with her previous lymph node dissection. Chest: Coarse breath sounds somewhat diffusely. Abdomen: Soft, nontender, nondistended. She has no increased work of breathing. PERTINENT DATA: Her sodium today is 130, potassium 3.9, BUN 37, creatinine is 1.6 which is improved from yesterday. Her proBNP is 8418, which is better than what she presented with. ASSESSMENT: Ms. Collazo is a 72-year-old female with a history of nonischemic cardiomyopathy and CKD. We have made adjustments to her medications with the increasing of hydralazine. I would give her one dose of Samsca at 15 mg yesterday which she seemed to respond to very well, increasing her sodium from 121 to 130. Considering this vigorous response, I would give her a holiday and consider dosing her again in the morning based on her sodium reading. I will order a basic metabolic panel. Her magnesium was 1.9. cc: Mark Mena MD
[2018-04-10] MEDS: ASPIRIN PO SCH ×2 (21:45→21:48)
[2018-04-11] MEDS: DUONEB (A & A) INH SCH ×4 (03:08→21:15)
[2018-04-11] MEDS: TYLENOL PO PRN (04:29)
[2018-04-11] MEDS: LASIX 100 MG in NS 25 ML IV SCH ×2 (05:02→16:54)
[2018-04-11 05:54] LABS: BASO# 0.03 X1000 (0.0-0.2); BASO% 0.3 % (0.0-0.8); EOS# 0.07 X1000 (0.0-0.7); EOS% 0.6 % (0.0-10.0); HEMATOCRIT 25.3 % (37.0-47.0); HEMOGLOBIN 8.3 g/dL (12.0-16.0); IMM GRAN# 0.06 X1000 (0.0-0.04); IMM GRAN% 0.5 % (0.0-0.5); LYMPH# 1.06 X1000 (1.2-3.4); LYMPH% 9.4 % (20.5-51.1); MCH 30.7 PG (27-31); MCHC 32.8 g/dL (33-37); MCV 93.7 FL (81-99); MONO# 1.57 X1000 (0.11-0.59); MONO% 13.9 % (1.7-9.3); MPV 9.5 FL (7.4-10.4); NEUT# 8.48 X1000 (1.4-6.5); NEUT% 75.3 % (42.2-75.2); PLT 280 X1000 (130-400); RDW 17.6 % (11.5-14.5); WBC 11.27 X1000 (4.8-10.8)
[2018-04-11 06:01] LABS: CALCIUM 8.6 mg/dL (8.8-10.2); CREATININE 1.8 mg/dL (0.5-0.9); POTASSIUM 4.4 mmol/L (3.5-5.1)
[2018-04-11] MEDS ORDERED: SAMSCA PO ONE (06:15)
[2018-04-11] MEDS: COREG PO SCH ×2 (06:29→20:33)
[2018-04-11] MEDS: SYNTHROID PO SCH (06:29)
[2018-04-11] MEDS ORDERED: INSULIN PEN NEEDLES ONE (08:35)
[2018-04-11] MEDS: APRESOLINE PO SCH ×3 (08:37→16:55)
[2018-04-11] MEDS: ISORDIL PO SCH ×3 (08:37→16:55)
[2018-04-11] MEDS: VICON-C PO SCH (08:37)
[2018-04-11] MEDS: PRAVACHOL PO SCH (08:37)
[2018-04-11] MEDS: FERROUS SULFATE PO SCH (08:37)
[2018-04-11] MEDS: VITAMIN D PO SCH (08:37)
[2018-04-11] MEDS: MIRALAX PO SCH (08:37)
[2018-04-11] MEDS: BASAGLAR SUBQ SCH ×2 (08:37→20:34)
--- NOTE | 2018-04-11 11:47 | PROGRESS NOTE ---
DATE: 04/11/2018 SUBJECTIVE: This morning, Ms. Collazo was seen sitting up in a chair at the bedside. She refers to be doing a lot better. Still has a lot of fluid on. OBJECTIVE: Vital signs: Blood pressure is 115/53, pulse is 75, respirations 18, temperature is 98.8 degrees. Patient was saturating 100% on 3 L of oxygen. General: Ms. Collazo is a 72-year- old female. She was sitting up in a chair. She did not seem to be in any distress. Mucosa: Is pink and moist. Anicteric. Acyanotic. Neck: Supple. Did not see any JVD today. Respiratory: Air entry was bilaterally reduced. There is still diffuse wet crackles posteriorly in both lung jimenez. No wheezing. No rhonchi. Cardiovascular: Regular rate and rhythm. No murmurs, no rubs, no gallops. Abdomen: Soft, distended, but nontender. There is a lot of edema around the lateral aspect of the abdominal wall. Extremities: About 4+ pedal edema. REC THERAPIST: Patient is awake, alert, and oriented. LABORATORY DATA: WBC is 11.27, improving, hemoglobin is 8.3, platelet count of 280. Sodium is 129, potassium is 4.3, chloride is 85, bicarbonate is 30, creatinine is slightly up to 1.8. The patient's urine output was 2800. The patient has a total negative balance of 12,652. Her weight is 147. I do not really think that is the right weight, since she has been 240s since she came into the hospital. No imaging studies today. PATIENT MEDICATIONS: Have also been reviewed. She continues to be on diuretic 100 mg IV q.12 and other blood pressure medications. ASSESSMENT: 1. Fluid overload secondary to congestive heart failure and renal failure. The patient is currently on high-dosed diuretic therapy. She is diuresing adequately. We will continue with the current therapy. 2. Acute on chronic systolic heart failure with ejection fraction of 30% to 35% noted. Cardiology is on board. 3. Dilated cardiomyopathy secondary to ischemic heart disease. We will continue with her home medications. 4. Chronic kidney disease, Stage 3A, presumably cardiorenal in origin. We will continue diuretic therapy. 5. Hypertension, controlled. 6. Transaminitis presumably due to congestive hepatopathy; however, an underlying steatohepatitis cannot be entirely ruled out. 7. History of schizoaffective disorder. The patient's current medications have been reviewed. She is on 1. Aspirin 81 mg daily. 2. Coreg 12.5 b.i.d. 3. Vitamin D. 4. Iron sulfate. 5. Furosemide 100 mg b.i.d. 6. Hydralazine 25 mg 3 times per day. 7. Insulin glargine 30 units subcutaneous b.i.d. 8. Isordil 10 mg 3 times per day. 9. Synthroid 50 mcg in the morning. 10. Pravastatin 40 mg daily. 11. Multivitamins. cc: Kashmir Garcia MD
--- NOTE | 2018-04-11 12:32 | NEPHROLOGY PROGRESS NOTE ---
DATE: 04/11/2018 TIME SEEN: 0815. SUBJECTIVE: Ms. Collazo is resting quietly in bed. Her head of the bed is elevated. She states that she feels like she is breathing just a little bit better, knows that she is able to move her lower extremities better. OBJECTIVE: Vitals: Her most recent vital signs, her last temperature 98.4 degrees, blood pressure 115/53, heart rate 75, respirations 17, she is on 3 L nasal cannula. Last recorded saturation 100%. She has had 2051 in, 6950 out. She is in a negative fluid balance. General: This is a 72-year-old female resting quietly in bed. She appears acutely ill, though she is in no acute distress. HEENT: Normocephalic, atraumatic. Conjunctiva is pale pink. She has ADRIAN. Mucous membranes are dry. Neck: Supple, unable to determine JVD. Cardiovascular: She is regular rate and rhythm. She has an S4 present. Lungs: Clear to auscultation bilaterally. Equal excursion on O2. Abdomen: Soft, nontender. Positive bowel sounds. Genitourinary: Not inspected. She has had a large amount of urine out to Sanchez catheter. Extremities: Continues with 3+ edema. Neurological: She is alert to person and place. LABORATORY DATA: Sodium 129, potassium 4.4, chloride is 85, CO2 30, BUN 38, creatinine 1.8, glucose 95. The patient's anion gap is 14. She has a calcium of 8.6, previous TSH is 0.31. White count 11.27, hemoglobin 8.3, hematocrit 25.3 with a platelet count of 280, 000. ASSESSMENT AND PLAN: 1. Hypokalemia. See plan. 2. Fluid volume overload with acute kidney injury overlying chronic kidney disease. The patient has been given large doses of diuretics of Lasix 100 mg b.i.d., followed by metolazone. We will continue to monitor and follow her CKD. This has basically remained at her baseline creatinine of 1.8. 3. Fluid volume overload. Patient will remain on her Lasix today 100 b.i.d. IV. We will hold on the metolazone. Re-evaluate in the a.m. She does appear to be less swollen. 4. Acid-base balance and anemia. These are acceptable. 5. Increased work of breathing. Again, we are managing her fluid volume overload with large volumes of Lasix. The patient seems to be responding. I would like to thank you for allowing us to follow with this patient. Dictated by SCOTT Elder for Primo King MD Face to face encounter, data reviewed, discussed with Debora Merino on 04/11/18. I agree with the above assessment and plan of care. cc: SCOTT Elder MD [facility]
[2018-04-11] MEDS: ASPIRIN PO SCH (20:34)
[2018-04-12] MEDS: DUONEB (A & A) INH SCH ×4 (03:34→22:51)
[2018-04-12 06:25] LABS: ALBUMIN 3.1 g/dL (3.5-5.0); CALCIUM 8.8 mg/dL (8.8-10.2); CREATININE 1.6 mg/dL (0.5-0.9); PHOSPHORUS 3.6 mg/dL (2.7-4.5); POTASSIUM 3.3 mmol/L (3.5-5.1)
[2018-04-12] MEDS: LASIX 100 MG in NS 25 ML IV SCH ×2 (06:28→16:40)
[2018-04-12] MEDS: SYNTHROID PO SCH (06:28)
[2018-04-12] MEDS: BASAGLAR SUBQ SCH ×2 (09:03→21:35)
[2018-04-12] MEDS: ISORDIL PO SCH ×3 (09:03→16:40)
[2018-04-12] MEDS: COREG PO SCH ×2 (09:03→21:35)
[2018-04-12] MEDS: MIRALAX PO SCH (09:04)
[2018-04-12] MEDS: VITAMIN D PO SCH (09:04)
[2018-04-12] MEDS: FERROUS SULFATE PO SCH (09:04)
[2018-04-12] MEDS: APRESOLINE PO SCH ×3 (09:04→16:40)
[2018-04-12] MEDS: VICON-C PO SCH (09:04)
--- NOTE | 2018-04-12 12:58 | PROGRESS NOTE ---
DATE: 04/12/2018 SUBJECTIVE: This morning, Ms. Collazo refers to be doing fairly okay. I understand she has been indulging in some inappropriate behaviors, especially fondling herself. Her sister was at the bedside at the time of the encounter, and the sister tells me that all that they have been talking about is sex and according to her, Ms. Collazo has a very high sexual drive and that normally happens when she becomes decompensated from her mental illness standpoint. OBJECTIVE: Vital signs: Blood pressure is 126/60, pulse is 91, respirations 15 , temperature is 99.1 degrees. The patient is saturating 97%. General: Ms. Collazo is a 72- year-old female. She is in bed. She is not in any cardiopulmonary distress. Mucosa: [place] and moist. Anicteric. Acyanotic. Neck: Supple. Did not see any JVD. Respiratory: Air entry is bilaterally reduced. There are still diffuse crackles in the posterior lung jimenez bilaterally. No wheezing and no rhonchi. Cardiovascular: Regular rate and rhythm. No murmurs, no rubs, no gallops. GI: Abdomen is soft, is distended. There is edema around the lateral aspect of the abdominal wall. Extremities: About 3+ pedal edema. CONFERENCE SERVICES DIRECTOR: Patient is awake, alert, and follows basic commands. LABORATORY DATA: WBC is 12.27, hemoglobin is 8.3, platelet count of 280. Creatinine is down to 1.6. Rest of chemistry has also been reviewed. The patient's I's and O's: Urine output was 3425. The patient is currently negative balance of 15,258. She has lost about 16 pounds during this current hospitalization. CURRENT MEDICATIONS: Have also been reviewed. ASSESSMENT AND PLAN: 1. Fluid overload secondary to congestive heart failure and renal failure. The patient is on high-dosed diuretic therapy. She is diuresing adequately. We will continue with the current management. 2. Acute on chronic congestive heart failure with ejection fraction of 30% to 35 %. Cardiology is on board. We will continue with her home medications and diuretic therapy. 3. Dilated cardiomyopathy secondary to ischemic heart disease noted. 4. Acute on chronic kidney disease (stage IIIA, presumably cardiorenal in origin ), is getting diuretic therapy. 5. Hypertension, controlled. 6. History of schizoaffective disorder. Patient is now showing traits of hypersexuality. I think it is probably a decompensation of her underlying mental disease, according to the sister, that is usually what happens. She has been started back on her Seroquel. . cc: Kashmir Garcia MD MTDD
[2018-04-12] MEDS ORDERED: KLOR-CON PO ONE (14:31)
--- NOTE | 2018-04-12 17:35 | PROGRESS NOTE ---
DATE: 04/12/2018 SUBJECTIVE: The patient still has some tendency for coughing. She denies shortness of breath on supplemental oxygen per nasal cannula. There has been no chest pain. She has had a very good diuresis thus far during her hospital stay. OBJECTIVE: Vital Signs: Blood pressure 126/60, heart rate 91, oxygen saturation 97% on nasal cannula oxygen at 2 L/minute. Neck: Jugular venous distention appears to be present consistent with elevated central venous pressure. Chest: Clear to auscultation. Cardiac: Reveals a regular rate and rhythm without appreciable murmur or gallop. Extremities: Demonstrate moderate pretibial edema. LABORATORY DATA: Includes: Sodium 134, potassium 3.3, chloride 85, carbon dioxide 39, BUN 41, creatinine 1.6, glucose 143, albumin 3.1. IMPRESSION: 1. Acute on chronic systolic heart failure. 2. Dilated cardiomyopathy of moderate severity. 3. Chronic kidney disease stage 3. 4. Obesity. Consider the possibility of sleep apnea. 5. Atherosclerotic coronary disease. 6. Hypertension. 7. Hyperlipidemia. 8. Schizoaffective disorder. RECOMMENDATIONS: 1. Continue diuresis with intravenous Lasix. 2. Continue hydralazine/isosorbide, as well as Coreg. 3. Ultimately the patient would benefit from a sleep study. cc: Kolby Jackson MD
[2018-04-12] MEDS: TYLENOL PO PRN (21:34)
[2018-04-12] MEDS: ASPIRIN PO SCH (21:35)
[2018-04-12] MEDS: SEROQUEL PO SCH (21:35)
[2018-04-12] MEDS: PRAVACHOL PO SCH (21:35)
--- NOTE | 2018-04-12 21:59 | NEPHROLOGY PROGRESS NOTE ---
DATE: 04/12/2018 TIME SEEN: 0810 SUBJECTIVE: Ms. Collazo is resting quietly in bed. Her head of the bed is elevated. She states that she is feeling much better today. VITAL SIGNS: Temperature 98.7 degrees, blood pressure 120/64, heart rate 85, respirations 18, she is on 3 L nasal cannula. Last recorded saturation 100%. She has 1340 in, 3425 out to Sanchez catheter. LAB: Sodium 134, potassium 3.3, chloride is 85, CO2 39, BUN 41, creatinine 1.6 , glucose 143, her anion gap is 10, her calcium is 8.8, phosphorus 3.6, albumin 3.1, previous hemoglobin 8.3. PHYSICAL EXAMINATION: General: This is a 72-year-old female. She is resting quietly in bed. She appears chronically ill in no acute distress. Skin: Warm and dry. HEENT: Normocephalic, atraumatic. Conjunctivae pale pink. She has ADRIAN. Mucous membranes are dry. Neck: Supple. Trachea midline. Unable to determine JVD. Cardiovascular: Regular rate and rhythm. She has an S4 present. Lungs: Clear to auscultation bilaterally. Equal excursion to the anterior. She remains on O2. Abdomen: Soft, nontender. Positive bowel sounds. Genitourinary: Not inspected. Patient has a large amount of urine out to Sanchez catheter. Extremities: Continues with 3+ edema though soft. Neurological: She is alert to person and place. ASSESSMENT AND PLAN: 1. The patient continues with fluid volume overload. We will continue to monitor. She remains on Lasix 100 mg b.i.d., no fluid infusing, adequate urine out. Edema has improved. 2. Electrolytes. Patient has mild hypokalemia. This has improved with potassium supplement yesterday. She continues to receive magnesium with her vitamin. We will give her 1 dose of potassium today. 3. Electrolytes and acid-base balance. This is stable. 4. Anemia. This is low but acceptable. 5. Fluid volume overload. Again patient continues to receive extra Lasix for fluid volume control. Like to thank you for allowing us to follow with this patient. Dictated by SCOTT Elder for Primo King MD Face to face encounter, data reviewed, discussed with Kandy Merino on 04/12/18. I agree with the above assessment and plan of care. cc: SCOTT Elder MD [facility]ITALJacky
[2018-04-13] MEDS: DUONEB (A & A) INH SCH ×2 (03:25→21:10)
[2018-04-13] MEDS: LASIX 100 MG in NS 25 ML IV SCH ×2 (05:48→17:20)
[2018-04-13] MEDS: SYNTHROID PO SCH ×2 (05:48→06:00)
[2018-04-13 06:49] LABS: ALBUMIN 3.1 g/dL (3.5-5.0); CALCIUM 8.5 mg/dL (8.8-10.2); CREATININE 1.6 mg/dL (0.5-0.9); PHOSPHORUS 3.4 mg/dL (2.7-4.5); POTASSIUM 3.4 mmol/L (3.5-5.1)
[2018-04-13] MEDS: APRESOLINE PO SCH ×3 (08:14→17:20)
[2018-04-13] MEDS: COREG PO SCH ×2 (08:14→20:57)
[2018-04-13] MEDS: FERROUS SULFATE PO SCH (08:14)
[2018-04-13] MEDS: VITAMIN D PO SCH (08:14)
[2018-04-13] MEDS: ISORDIL PO SCH ×3 (08:14→17:20)
[2018-04-13] MEDS: VICON-C PO SCH (08:14)
[2018-04-13] MEDS: MIRALAX PO SCH (08:14)
[2018-04-13] MEDS: BASAGLAR SUBQ SCH ×2 (08:15→20:57)
--- NOTE | 2018-04-13 09:10 | NEPHROLOGY PROGRESS NOTE ---
DATE: 04/13/2018 TIME SEEN: 719 SUBJECTIVE: Ms. Collazo is resting quietly in bed. Her head of the bed is elevated. She states that she is breathing much better and has been able to get up and sit on the side of the bed, and walk to the bathroom. VITAL SIGNS: Temperature 98.3 degrees, blood pressure 119/76, heart rate 82, respirations 19. She is on 2 L nasal cannula. Last recorded saturation 100%. She has had 1010 in, 4450 out to Sanchez catheter. LABORATORY DATA: Sodium 139, potassium 3.4, chloride 88, CO2 40, BUN 43, creatinine 1.6, glucose 50, anion gap 11, calcium 8.5, phosphorus 3.4, albumin 3.1. Hemoglobin 8.3 on 04/11/2018. PHYSICAL EXAMINATION: General: This is a 72-year-old female. She is resting quietly in bed. She is alert and oriented. Skin: Warm and dry. She has no acute distress. HEENT: Normocephalic, atraumatic. Conjunctivae pale pink. She has ADRIAN. Mucous membranes dry. Neck: Supple. Trachea midline. No JVD today. Cardiovascular: She is regular rate and rhythm. S4 is present. Lungs: Clear to auscultation anteriorly. Equal excursion on O2. Abdomen: Soft, large, round, nontender. Positive bowel sounds. Genitourinary: Not inspected. The patient has adequate urine out. Extremities: Continues with 2+ edema, though this is soft. Neurological: Alert and oriented x3. ASSESSMENT AND PLAN: 1. Fluid volume overload. The patient continues with Lasix 100 mg b.i.d. Her BUN and creatinine remain fairly stable. She has good urine out. We will continue to monitor. 2. Electrolytes. The patient had hypokalemia yesterday. We had given her potassium supplement. Her potassium today is 3.4. Monitor labs in the a.m. 3. Acid-base balance. This is stable. 4. Anemia. This remains low, but stable. I would like to thank you for allowing us to follow with this patient. Dictated by SCOTT Elder for Primo King MD Face to face encounter, data reviewed, discussed with Debora Merino on 04/13/18. I agree with the above assessment and plan of care. cc: SCOTT Elder MD MTDD
--- NOTE | 2018-04-13 19:14 | PROGRESS NOTE ---
DATE: 04/13/2018 SUBJECTIVE: This morning Ms. Collazo was sitting up on the sofa at the bedside. She refers to be doing a lot better. Denies any pain. OBJECTIVE: Vital signs: Blood pressure is 116/58, pulse is 97, respirations 18, temperature is 99 degrees. The patient was saturating about 94 to 100 on 2 L. General: Ms. Collazo is a 72-year- old female. She was on the sofa. Was not in any cardiopulmonary distress. HEENT: Mucosa is pink and moist. Anicteric. Acyanotic. Neck: Supple. Chest: Air entry bilateral reduced. There are still diffuse crackles posteriorly. Cardiovascular: Regular rate and rhythm. There are no murmurs, no rubs, no gallops. GI: Abdomen was soft and distended. There is still edema around the lateral aspect of the abdominal wall. Extremities: About 3+ pedal edema. TUBE DEPATCHER: Patient is awake, alert, and oriented. : There is a Sanchez catheter in place. LABORATORY DATA: Sodium is 136, potassium is 3.4, chloride is 88, bicarb is 40, BUN is 43, creatinine is 1.6 which was the same as yesterday. The patient's I's and O's. Urine output has been 3450. Patient has currently negative balance of 18,178, and she has also lost about 16 pounds during this current hospitalization. No imaging. CURRENT MEDICATIONS: Have been reviewed. 1. Coreg 12.5 b.i.d. 2. Vitamin D. 3. Iron sulfate. 4. Lasix 100 mg q.12. 5. Hydralazine 25 three times per day. 6. Insulin 30 units b.i.d. 7. Isordil 10 mg 3 times per day. 8. Synthroid 50 mcg daily. 9. MiraLAX. 10. Pravastatin 40 mg at bedtime. 11. Seroquel 400 p.o. at bedtime. ASSESSMENT: 1. Fluid overload secondary to congestive heart failure and renal failure. The patient continues to be on high-dose diuretic therapy. She seems to be diuresing very well. We will continue with the current management. 2. Mcpao-vd-syfshak congestive heart failure. Ejection fraction of 30% to 35%. We will continue with the diuretic therapy, carvedilol, Isordil, and hydralazine combo. 3. Dilated cardiomyopathy secondary to ischemic heart disease, noted. 4. Fgkjq-ya-xfgnpgr kidney disease stage IIIA, presumably cardiorenal in origin. Patient is on diuretic therapy. Renal functions continue to be fairly stable. Nephrology is on board. 5. Hypertension, controlled. 6. History of schizoaffective disorder. The patient has been started back on her Seroquel per the nursing staff. Her hypersexual arousal and desires are getting better and under control. cc: Kashmir Garcia MD
[2018-04-13] MEDS: SEROQUEL PO SCH (20:57)
[2018-04-13] MEDS: PRAVACHOL PO SCH (20:57)
[2018-04-13] MEDS: ASPIRIN PO SCH (20:57)
--- NOTE | 2018-04-14 00:10 | PROGRESS NOTE ---
DATE: 04/13/2018 SUBJECTIVE: Patient still has some cough that is quite bothersome. She denies shortness of breath or chest discomfort. OBJECTIVE: Vital Signs: Blood pressure 104/58, heart rate 88, oxygen saturation 100% on nasal cannula oxygen at 2 L/minute. Neck: Jugular venous distention cannot be appreciated. Chest: Clear to auscultation. Cardiac: Exam reveals a regular rate and rhythm without appreciable gallop or murmur. Extremities: Demonstrate moderate pretibial edema. LABORATORY DATA: Sodium 139, potassium 3.4, chloride 88, Carbon dioxide 40, BUN 43, creatinine 1.6, glucose 50, albumin 3.1. IMPRESSION: 1. Acute on chronic systolic heart failure. 2. Dilated cardiomyopathy of moderate severity. 3. Chronic kidney disease, stage III-IV 4. Obesity. Consider the possibility of sleep apnea. 5. Atherosclerotic coronary disease. 6. Hypertension. 7. Hyperlipidemia. 8. Schizoaffective disorder. RECOMMENDATIONS: 1. Continue diuresis with IV Lasix. 2. Continue hydralazine/isosorbide as well as Coreg. 3. Ultimately, patient would benefit from sleep study. 4. Discharge planning probably includes [facility] facility stay for some length of time post hospitalization. cc: Kolby Jackson MD
[2018-04-14] MEDS: DUONEB (A & A) INH SCH ×5 (03:53→21:15)
[2018-04-14] MEDS: LASIX 100 MG in NS 25 ML IV SCH (05:57)
[2018-04-14] MEDS: SYNTHROID PO SCH ×2 (05:57→06:39)
[2018-04-14 08:22] LABS: ALBUMIN 3.2 g/dL (3.5-5.0); CALCIUM 8.2 mg/dL (8.8-10.2); CREATININE 1.6 mg/dL (0.5-0.9); PHOSPHORUS 3.7 mg/dL (2.7-4.5); POTASSIUM 3.4 mmol/L (3.5-5.1)
[2018-04-14] MEDS: MIRALAX PO SCH (10:45)
[2018-04-14] MEDS: ISORDIL PO SCH ×3 (10:45→18:12)
[2018-04-14] MEDS: COREG PO SCH ×2 (10:45→20:20)
[2018-04-14] MEDS: VITAMIN D PO SCH (10:45)
[2018-04-14] MEDS: VICON-C PO SCH (10:45)
[2018-04-14] MEDS: FERROUS SULFATE PO SCH (10:46)
[2018-04-14] MEDS: APRESOLINE PO SCH ×3 (10:46→18:12)
[2018-04-14] MEDS: BASAGLAR SUBQ SCH ×2 (10:46→20:22)
--- NOTE | 2018-04-14 13:55 | PROGRESS NOTE ---
DATE: 04/14/2018 SUBJECTIVE: The patient continues without dyspnea on room air. Cough is improved. There has been no chest pain. OBJECTIVE: Vital Signs: Blood pressure 113/51, heart rate 87, oxygen saturation 95 to 100 percent on nasal cannula oxygen. Neck: Jugular venous distention cannot be appreciated. Chest: Clear to auscultation bilaterally. Cardiac Exam: Reveals a regular rate and rhythm without appreciable murmur, rub or gallop. Extremities: Demonstrate mild to moderate pretibial edema. LABORATORY DATA: Sodium 134, potassium 3.4, chloride 82, BUN 43, creatinine 1.6, carbon dioxide 39, glucose 156, albumin 3.2. IMPRESSION: 1. Acute on chronic systolic heart failure. 2. Dilated cardiomyopathy, moderate severity. 3. Chronic kidney disease stage 3 to 4. 4. Obesity. Consider the possibility of obstructive sleep apnea. 5. Atherosclerotic coronary disease. 6. Hypertension. 7. Hyperlipidemia. 8. Schizoaffective disorder. RECOMMENDATIONS: 1. Continue diuresis, but decrease Lasix to achieve more gentle rate of further diuresis. 2. Continue hydralazine/isosorbide as well as Coreg. 3. Ultimately, the patient would benefit from sleep study. 4. Discharge planning includes [facility] facility stay for some length of time post hospitalization. This certainly seems reasonable. cc: Kolby Jackson MD
--- NOTE | 2018-04-14 16:51 | PROGRESS NOTE ---
DATE: 04/14/2018 SUBJECTIVE: This morning Ms. Collazo refers to be doing fairly okay. She denies any complaints. The patient was in bed and was having her lunch. OBJECTIVE: Vital signs: Blood pressure is 99/59, pulse is 92, respirations 18, temperature 99.2 degrees. The patient was saturating 100%. General: Ms. Collazo is a 72-year-old lady. She is in bed. She is not in any cardiopulmonary distress. HEENT: Mucosa is pink and moist. Anicteric. Acyanotic. Neck: Supple. Chest: Good air entry bilaterally. A few crackles posteriorly. Cardiovascular: Regular rate and rhythm. No murmurs, no rubs, no gallops. Abdomen: Soft, distended, but nontender. There is some edema around the abdominal wall. Extremities: 2+ pedal edema. Central nervous system: Patient is awake, alert, and oriented. Genitourinary: Sanchez catheter is in place. DIAGNOSTIC DATA: Sodium is 134, potassium is 3.4, chloride 92, bicarbonate is 29, creatinine is 1.6. PATIENT INTAKE AND OUTPUT: Urine output was 4. Patient is currently negative balance of over 22,000. RADIOLOGICAL DATA: No imaging studies today. MEDICATIONS: Have been reviewed. 1. Still on Lasix 100 mg IV q.24 h. 2. Quetiapine 400 at bedtime. 3. Pravachol 40 mg daily. 4. MiraLAX. 5. Levothyroxine 50 mcg daily. 6. Isordil 10 mg 3 times per day. 7. Glargine insulin 30 units b.i.d. 8. Hydralazine 25 mg 3 times per day. 9. Vitamin D. 10. Coreg 12.5 b.i.d. 11. Aspirin 81 mg daily. ASSESSMENT: 1. Fluid overload secondary to congestive heart failure and renal failure. The patient is on high-dose diuretic therapy. This has been changed to only 1 time per day. She seems to be diuresing adequately. However, there is still a lot of fluid on board. 2. Acute on chronic congestive heart failure. Ejection fraction of 30% to 35%noted. 3. Dilated cardiomyopathy secondary to ischemic heart disease. 4. Acute on chronic kidney disease, stage 3A, presumably cardiorenal. Nephrology is on board. Patient is making adequate urine. 5. Hypertension, controlled. 6. History of schizoaffective disorder. I understand patient has been indulging in inappropriate behaviors, including fondling with herself as a result of hyperarousal and hyperlibido. The patient has been started back on her Seroquel, and we will get Psychiatry to evaluate her. cc: Kashmir Garcia MD
--- NOTE | 2018-04-14 17:38 | NEPHROLOGY PROGRESS NOTE ---
DATE: 04/14/2018 DATE AND TIME: Date seen 04/14/2018, time seen is 0840. SUBJECTIVE: Ms. Collazo is resting quietly in bed. She appears in no acute distress. She is actually sitting up eating her breakfast in the bathroom. OBJECTIVE: Vital Signs: Her most recent vital signs: Temperature 98.1, blood pressure 106/47, heart rate 82, respirations 19. She is on 2 L nasal cannula. Last recorded saturation 99%. She has had 555 in, 4025 out. The patient has been voiding. LABS: Sodium 134, potassium 3.4, chloride is 82, CO2 39, BUN is 43, creatinine is 1.6, glucose is 156. Previous hemoglobin 8.3 on the . PHYSICAL EXAM: This is a 72-year-old white female. She is in no acute distress.Skin: Warm and dry. HEENT: Normocephalic, atraumatic. Conjunctivae pale, pink. She has ADRIAN. Mucous membranes are dry. Neck: Supple, trachea midline. No evidence of JVD in the upright position. Cardiovascular: She is regular rate and rhythm. She has S4 that is present. Lungs: Basically clear to auscultation bilaterally. Equal excursion on O2. Abdomen: Soft, large, round, nontender. Positive bowel sounds. Genitourinary: Not inspected. Patient has been voiding adequate amount. Extremities: Continues with 2+ lower extremity edema, though these are dependent today. Neurologic: Alert and oriented x 3. ASSESSMENT AND PLAN: 1. Fluid volume overload. Patient remains on Lasix 100 mg b.i.d. BUN and creatinine have remained fairly stable. She has had great urine output in response with her Lasix. No bump in her creatinine. We will continue the course. 2. Electrolytes and acid-base balance. These remain fairly stable. 3. Anemia. This is low, but stable. No indications for intervention. We will defer that to the primary care team. I would like to thank you for allowing us to follow with this patient. Dictated by SCOTT Elder for Primo King MD Face to face encounter, data reviewed, discussed with Debora Merino on 04/14/18. I agree with the above assessment and plan of care. cc: SCOTT Elder MD [facility]
[2018-04-14] MEDS: ASPIRIN PO SCH (20:20)
[2018-04-14] MEDS: PRAVACHOL PO SCH (20:21)
[2018-04-14] MEDS: MUCINEX PO SCH (20:21)
[2018-04-14] MEDS: SEROQUEL PO SCH (20:21)
[2018-04-15] MEDS: DUONEB (A & A) INH SCH ×4 (03:23→21:14)
[2018-04-15] MEDS: LASIX 100 MG in NS 25 ML IV SCH (06:05)
[2018-04-15] MEDS: SYNTHROID PO SCH (06:06)
[2018-04-15 08:43] LABS: ALBUMIN 3.6 g/dL (3.5-5.0); CALCIUM 8.6 mg/dL (8.8-10.2); CREATININE 1.4 mg/dL (0.5-0.9); PHOSPHORUS 3.8 mg/dL (2.7-4.5); POTASSIUM 3.8 mmol/L (3.5-5.1)
[2018-04-15] MEDS: MUCINEX PO SCH ×2 (09:11→21:46)
[2018-04-15] MEDS: MIRALAX PO SCH (09:11)
[2018-04-15] MEDS: ISORDIL PO SCH ×3 (09:11→17:12)
[2018-04-15] MEDS: VICON-C PO SCH (09:11)
[2018-04-15] MEDS: APRESOLINE PO SCH ×3 (09:12→17:12)
[2018-04-15] MEDS: COREG PO SCH ×2 (09:12→21:46)
[2018-04-15] MEDS: FERROUS SULFATE PO SCH (09:12)
[2018-04-15] MEDS: VITAMIN D PO SCH (09:12)
--- NOTE | 2018-04-15 11:29 | NEPHROLOGY PROGRESS NOTE ---
DATE: 04/15/2018 SUBJECTIVE: The patient is resting in bed. She has been able to do without her oxygen this morning. She is using her incentive spirometer and states that she feels much better today. OBJECTIVE: Vital Signs: Temperature 97.3 degrees, pulse 81, respiratory rate 19, blood pressure 135/50. Intake 840 mL, output 2.7 L. General: This is an elderly female, resting in bed, awake and alert. She is in no acute distress. HEENT: Normocephalic, atraumatic. ADRIAN. Oral mucosa moist. Neck: Supple. There is no JVD. Cardiovascular: Regular rate and rhythm with a gallop. Pulmonary: She is clear bilaterally. She has equal excursion. She is currently on room air. Abdomen: Soft, with positive bowel sounds. : Not inspected. She has a Sanchez catheter with yellow urine. Extremities: No clubbing or cyanosis. She has 2+ edema. Integumentary: Skin is warm and dry. LAB DATA: Sodium 132, potassium 3.8, creatinine 1.4. ASSESSMENT AND PLAN: 1. Fluid volume overload. She has continued with excellent urine output over the last several days. Her creatinine is actually improving overnight. From a renal standpoint, we have no indication to change her current treatment plan. She could be transitioned back to her oral medications at the discretion of the primary and we would want to follow up with the patient within 2 weeks after discharge from the hospital. 2. Electrolytes, acid-base balance. These are stable. Dictated by SCOTT Chen for Primo King MD Data reviewed, discussed with Gabby Snyder on 04/15/28. I agree with the above assessment and plan of care. cc: Primo King MD [facility]
[2018-04-15 12:53] LABS: HEMATOCRIT 27.7 % (37.0-47.0); HEMOGLOBIN 8.9 g/dL (12.0-16.0); MCH 30.3 PG (27-31); MCHC 32.1 g/dL (33-37); MCV 94.2 FL (81-99); MPV 9.7 FL (7.4-10.4); RBC 2.94 XMIL (4.2-5.4); RDW 17.6 % (11.5-14.5); WBC 8.9 X1000 (4.8-10.8)
[2018-04-15] MEDS: BASAGLAR SUBQ SCH ×2 (13:32→21:46)
--- NOTE | 2018-04-15 16:38 | PROGRESS NOTE ---
DATE: 04/15/2018 SUBJECTIVE: Today, Ms. Collazo refers to be doing fairly okay. She was sitting up in a chair. She was very upset because she thinks people were looking at her differently because of her hypersexuality. She also was very upset with her sister who has been reprimanding her multiple times because of her excessive libido. Ms. Collazo is saying that she has been doing this for as long as she can remember, and that it is not anything that she is going to stop , and she does not think it is mental illness related, but that is what has been upsetting her sister as well. OBJECTIVE: Vital signs: Blood pressure is 102/52, pulse of 82, respirations 18 , and temperature is 98.1 degrees. General: Ms. Collazo is a 72-year-old female. She is in bed, not seemingly distressed. Mucosa is pink and moist. Anicteric. Acyanotic. Neck: Supple. Lungs: Chest air entry was bilaterally reduced. There were crackles posteriorly. Cardiovascular: Regular rate and rhythm. No murmurs, no rubs, no gallops. Abdomen: Soft, nontender. Bowel sounds present. Extremities: About 2+ pedal edema. 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 LABORATORY: I's and O's: Urine output was 2700. Patient has negative balance of 23,000. CURRENT MEDICATIONS: Also have been reviewed. LABORATORY DATA: WBC is down to 8.90, hemoglobin is 8.8, and platelet count of 316,000. Chemistry is also reviewed. Creatinine is 1.4. Sodium is 132. ASSESSMENT: 1. Fluid overload secondary to combination of congestive heart failure and renal failure. Patient is on diuretic therapy making adequate urine. 2. Acute on chronic congestive heart failure. Ejection fraction of 30-35% noted. 3. Dilated ischemic cardiomyopathy. 4. Acute on chronic kidney disease, stage 3A, presumably cardiorenal in origin. We will continue addressing the underlying physiology. 5. Hypertension is controlled. 6. History of schizoaffective disorder with hypersexuality and libido. Seroquel has been started. We have ordered a psych consult, we are pending their evaluation. Disposition: insemination worker is looking into placement. cc: MD KATIE Rich
[2018-04-15] MEDS: PRAVACHOL PO SCH (21:46)
[2018-04-15] MEDS: ASPIRIN PO SCH (21:46)
[2018-04-15] MEDS: SEROQUEL PO SCH (21:46)
[2018-04-16] MEDS: DUONEB (A & A) INH SCH ×4 (03:38→21:27)
[2018-04-16] MEDS ORDERED: INSULIN PEN NEEDLES ONE (05:32)
[2018-04-16] MEDS: LASIX 100 MG in NS 25 ML IV SCH (05:50)
[2018-04-16] MEDS: SYNTHROID PO SCH ×2 (05:50→05:59)
--- NOTE | 2018-04-16 08:04 | PROGRESS NOTE ---
DATE: 04/16/2018 SUBJECTIVE: This morning, Ms. Collazo refers to be doing fairly okay. Did not really have any complaints. She says she has been in discussion with her sister about discharge. OBJECTIVE: Vital Signs: Blood pressure is 118/65, pulse is 77, respirations 20 , temperature is 97.9 degrees the patient was saturating 98% on 2 L. General: Ms. Collazo is a 72- year-old - [place] female. She was in bed. She is not in any cardiopulmonary distress. Mucosa is pink and moist. Anicteric. Acyanotic.Neck: Supple. No JVD. No carotid bruit. Respiratory System: There is good air entry bilaterally. Crepitations posteriorly in both lung jimenez. Cardiovascular: Regular rate and rhythm. No murmurs, no rubs, no gallops. Gastrointestinal: Abdomen is soft, nontender. Bowel sounds present no hepatosplenomegaly. Extremities: About 2+ pedal edema. Central Nervous System: Patient is awake, alert, and oriented. LABORATORY DATA: None at the time of dictation. Urine output was 3750. Patient is currently negative balance of 25,543. The current weight is 232. Patient had a previous weight of 248. No imaging studies. MEDICATIONS: Medications have also been reviewed. The patient is currently on 1. Aspirin 81 mg daily. 2. Carvedilol 12.5 mg daily. 4. Cholecalciferol 2000 units daily. 5. Iron sulfate 325 daily. 6. Furosemide IV 100 mg daily. 7. Mucinex. 8. Hydralazine 25 times per day. 9. Insulin glargine 30 units but b.i.d. 10. Isordil 10 mg 3 times per day. 11. Levothyroxine 50 mcg daily. 12. Pravachol 40 mg at bedtime. 13. MiraLAX 17 g p.o. daily. 14. Seroquel 400 p.o. at bedtime. ASSESSMENT: 1. Fluid overload secondary to combination of congestive heart failure and renal failure. The patient continues to have adequate diuresis. She has negative balance. We will continue with the current diuretic therapy. 2. Ppszn-ij-kwxawuj congestive heart failure. Ejection fraction of 30% to 35% noted. 3. Dilated ischemic cardiomyopathy. We will continue with the above medications. 4. Dxhjg-wv-bzcismf kidney disease, stage 3 A, presumably cardiorenal in origin. Nephrology is on board. 5. Hypertension is controlled. 6. History of schizoaffective disorder associated with hypersexuality and libido. The patient is on Seroquel. She was evaluated yesterday by Megan Ortega and deemed not to qualify for inpatient management. DISPOSITION: We are still pending disposition arrangement with director social for Ms. Collazo. I think whenever that is arranged, she will be stable for discharge. cc: Kashmir Garcia MD [facility]
--- NOTE | 2018-04-16 08:20 | Diag Imaging Result Doc PS360 ---
EXAM: CHEST-PORTABLE HISTORY: chf TECHNIQUE: Portable chest single view COMPARISON: 04/10/2018 FINDINGS: Poor inspiratory effort. The heart is mildly enlarged. There is a left sided pacemaker. Central vascular distention is less pronounced. Partial clearing of the right basilar infiltrates. No effusion identified. IMPRESSION: Mild interval improvement. Electronically signed by Lai Marquez 04/16/2018 8:17 AM
[2018-04-16] MEDS: COREG PO SCH ×2 (08:45→20:19)
[2018-04-16] MEDS: MUCINEX PO SCH ×2 (08:45→20:19)
[2018-04-16] MEDS: VITAMIN D PO SCH (08:45)
[2018-04-16] MEDS: VICON-C PO SCH (08:45)
[2018-04-16] MEDS: APRESOLINE PO SCH ×3 (08:45→20:20)
[2018-04-16] MEDS: FERROUS SULFATE PO SCH (08:45)
[2018-04-16] MEDS: ISORDIL PO SCH ×3 (08:46→20:20)
[2018-04-16] MEDS: BASAGLAR SUBQ SCH ×2 (08:46→20:20)
[2018-04-16] MEDS: MIRALAX PO SCH (08:46)
[2018-04-16 09:45] LABS: ALBUMIN 3.4 g/dL (3.5-5.0); CALCIUM 8.8 mg/dL (8.8-10.2); CREATININE 1.5 mg/dL (0.5-0.9); PHOSPHORUS 3.5 mg/dL (2.7-4.5); POTASSIUM 3.8 mmol/L (3.5-5.1)
--- NOTE | 2018-04-16 13:25 | NEPHROLOGY PROGRESS NOTE ---
DATE: 04/16/2018 SUBJECTIVE: Patient is sitting up in bed. She has remained off oxygen and is wanting to go home soon. OBJECTIVE: Vital Signs: Temperature 97.9 degrees, pulse 77, respiratory rate 20, blood pressure 118/65. Intake 1.7 L; output 3.7 L. General: On physical examination, this is an elderly female, sitting up in bed. She is awake, alert. She is in no acute distress. HEENT: Normocephalic, atraumatic. ADRIAN. She has glasses on. Her oral mucosa is moist. Neck: Supple. There is no JVD. Cardiovascular: Regular rate and rhythm. She does have a gallop noted. Pulmonary: She is clear bilaterally with equal excursion. She has no increased work of breathing on room air. Abdomen: Soft, with positive bowel sounds. Nontender. : Not inspected. Sanchez catheter with clear yellow urine. Extremities: No clubbing, cyanosis. She has 1+ to 2+ pretibial edema. She does have wrinkled skin with indications of improving edema. Integumentary: Skin is warm and dry otherwise. LAB DATA: BUN 38 (43), creatinine 1.5 (1.4). ASSESSMENT AND PLAN: 1. Fluid volume overload in the setting of chronic kidney disease and congestive heart failure. Patient remains on significant diuretic. She is currently on furosemide drip. Transition is back to her oral regimen per primary. Her renal functions remain relatively stable, and she has actually had improvement with creatinine through yesterday and continued improvement with her BUN overnight. We will continue to monitor while she is in the hospital. She has no indications for intervention otherwise from a renal perspective. 2. Electrolytes, acid-base balance acceptable. Noted that she is slightly hyponatremic today with a sodium of 132. Dictated by SCOTT Chen for Primo King MD cc: Primo King MD
[2018-04-16] MEDS: PRAVACHOL PO SCH (20:19)
[2018-04-16] MEDS: SEROQUEL PO SCH (20:20)
[2018-04-16] MEDS: ASPIRIN PO SCH (20:20)
[2018-04-17] MEDS: DUONEB (A & A) INH SCH ×4 (03:34→22:30)
[2018-04-17] MEDS: LASIX 100 MG in NS 25 ML IV SCH (06:08)
[2018-04-17] MEDS: SYNTHROID PO SCH (06:08)
[2018-04-17 08:28] LABS: ALBUMIN 3.3 g/dL (3.5-5.0); CALCIUM 8.1 mg/dL (8.8-10.2); CREATININE 1.5 mg/dL (0.5-0.9); PHOSPHORUS 2.9 mg/dL (2.7-4.5); POTASSIUM 3.5 mmol/L (3.5-5.1)
[2018-04-17] MEDS: FERROUS SULFATE PO SCH (10:52)
[2018-04-17] MEDS: APRESOLINE PO SCH ×4 (10:52→20:54)
[2018-04-17] MEDS: COREG PO SCH ×2 (10:52→20:54)
[2018-04-17] MEDS: VICON-C PO SCH (10:52)
[2018-04-17] MEDS: MIRALAX PO SCH (10:52)
[2018-04-17] MEDS: ISORDIL PO SCH ×3 (10:52→20:54)
[2018-04-17] MEDS: VITAMIN D PO SCH (10:52)
[2018-04-17] MEDS: MUCINEX PO SCH ×2 (10:52→20:54)
[2018-04-17] MEDS: BASAGLAR SUBQ SCH ×2 (10:53→20:56)
--- NOTE | 2018-04-17 12:43 | PROGRESS NOTE ---
DATE: 04/17/2018 SUBJECTIVE: This morning, Ms. Collazo refers to be doing fairly okay, denies any complaints. OBJECTIVE: Vital signs: Blood pressure is 132/53, pulse is 89, respiration is 17, temperature is 97.8 degrees. General: Ms. Collazo is a 72-year-old female. She is in bed. She is not in any cardiopulmonary distress. Mucosa is pink and moist. Anicteric and acyanotic. Neck: Supple. Chest: Good air entry bilaterally. There are no crepitations, no rhonchi. Cardiovascular: Regular rate and rhythm. No murmurs, no rubs, no gallops. GI: Abdomen is soft, nontender. Bowel sounds present. Extremities: About 2+ pedal edema. 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 There is no focal neurological deficit. LABORATORY DATA: Sodium is 129, potassium is 3.5, chloride is 85, bicarbonate is 33, creatinine is 1.5, has not changed for the past 2 to 3 days. The patient input and output, urine output was 5600 for a negative balance of about 30,000. ASSESSMENT: 1. Fluid overload secondary to combination of congestive heart failure and renal failure. Patient has had adequate diuresis and is currently negative balance. We are going to discontinue the IV diuretic and change it to her home b.i.d. of 40 of Lasix. 2. Acute on chronic congestive heart failure. Ejection fraction of 30 to 35 percent noted. 3. Dilated ischemic cardiomyopathy. We will continue with her current medications. 4. Acute on chronic kidney disease kidney disease, stage IIIA, presumably cardiorenal in origin. Creatinine has been fairly stable. 5. Hypertension, controlled. 6. History of schizoaffective disorder associated with hypersexuality and increased libido. The patient has been evaluated by [facility]. Does not meet criteria for inpatient. She has been started back on her Seroquel. PLAN: 1. So, in general, this morning I am going to discontinue the Sanchez catheter. We will continue to encourage Ms. Collazo to work with Physical Therapy. I have discontinue the IV Lasix and will switch it to b.i.d. 40 mg of p.o. I have also added spironolactone to enhance the diuretic effect and also to help with her congestive heart failure. 2. We are pending placement for Ms. Collazo. cc: Kashmir Garcia MD
[2018-04-17] MEDS: PRINIVIL PO SCH ×2 (17:05→17:10)
[2018-04-17] MEDS: ALDACTONE PO SCH ×2 (17:06→17:09)
[2018-04-17] MEDS: SEROQUEL PO SCH (20:54)
[2018-04-17] MEDS: ASPIRIN PO SCH (20:54)
[2018-04-17] MEDS: PRAVACHOL PO SCH (20:54)
[2018-04-17] MEDS: LASIX PO SCH (20:54)
[2018-04-18] MEDS: DUONEB (A & A) INH SCH ×4 (02:50→22:35)
[2018-04-18] MEDS: SYNTHROID PO SCH (06:00)
[2018-04-18 08:01] LABS: ALBUMIN 3.3 g/dL (3.5-5.0); CALCIUM 8.2 mg/dL (8.8-10.2); CREATININE 1.6 mg/dL (0.5-0.9); PHOSPHORUS 3.2 mg/dL (2.7-4.5); POTASSIUM 3.6 mmol/L (3.5-5.1)
[2018-04-18] MEDS: FERROUS SULFATE PO SCH (10:34)
[2018-04-18] MEDS: APRESOLINE PO SCH ×3 (10:34→21:01)
[2018-04-18] MEDS: MIRALAX PO SCH (10:34)
[2018-04-18] MEDS: VICON-C PO SCH (10:34)
[2018-04-18] MEDS: MUCINEX PO SCH ×2 (10:34→21:01)
[2018-04-18] MEDS: LASIX PO SCH ×2 (10:34→21:01)
[2018-04-18] MEDS: VITAMIN D PO SCH (10:34)
[2018-04-18] MEDS: ALDACTONE PO SCH (10:35)
[2018-04-18] MEDS: COREG PO SCH ×2 (10:35→21:06)
[2018-04-18] MEDS: PRINIVIL PO SCH (10:35)
[2018-04-18] MEDS: ISORDIL PO SCH ×3 (10:35→21:01)
[2018-04-18] MEDS: BASAGLAR SUBQ SCH ×2 (10:44→21:10)
--- NOTE | 2018-04-18 13:04 | NEPHROLOGY PROGRESS NOTE ---
DATE: 04/18/2018 TIME SEEN: 0830. SUBJECTIVE: Ms. Collazo is resting quietly in bed. She is sitting on the side, eating her breakfast. Denies any pain or increased work of breathing. OBJECTIVE: Vital signs: Her most recent vital signs, temperature is 98.3 degrees, blood pressure 108/55, heart rate 92, respirations 20. She is on room air. Last recorded saturation 98%. She has had 300 in, 2600 out to Sanchez. Labs: Her sodium is 125, potassium 3.6, chloride 82, CO2 30, BUN 35, creatinine 1.6, glucose 162. Her anion gap is 13, calcium 8.2, phosphorus 3.2, albumin 3.3. Previous hemoglobin 8.9 on the . PHYSICAL EXAMINATION: General: This is a 72-year-old female. She is resting quietly, eating her breakfast on the side of the bed. She is in no acute distress. Skin: Warm and dry. HEENT: Normocephalic, atraumatic. Conjunctivae pale. She has ADRIAN. Mucous membranes are dry. Neck: Supple. Trachea midline. No evidence of JVD. Cardiovascular : She is regular rate and rhythm. She does have an S4. Remains on room air. Abdomen: Large, obese, soft, nontender. Positive bowel sounds. Genitourinary: Not inspected. Sanchez catheter is in place. Extremities: Have trace to 1+ lower extremity edema. Integumentary: Warm and dry. Neurological: She is alert and oriented x3. ASSESSMENT AND PLAN: 1. Fluid volume overload. Patient remains at a stable CKD 3. Baseline creatinine of 1.6. This has not moved during her diuretic therapy. She is now on p.o. diuretics. 2. Electrolytes, acid-base balance, and anemia. These are all acceptable. The patient does have hyponatremia. Sodium is at 125. We have discussed maintaining a 1.5 L fluid restriction. I would like to thank you for allowing us to follow with this patient. Dictated by SCOTT Elder for Primo King MD Face to face encounter, data reviewed, discussed with Debora Merino on 04/18/18. I agree with the above assessment and plan of care. cc: SCOTT Elder MD [facility]
--- NOTE | 2018-04-18 17:00 | PROGRESS NOTE ---
DATE: 04/18/2018 SUBJECTIVE: This morning Ms. Collazo refers to be doing fairly okay. She feels great. She was sitting up in a chair. No acute complaints. OBJECTIVE: Vital signs: Blood pressure is 106/46, pulse is 82, respiration is 20, temperature is 99.9 degrees. General: Ms. Collazo is a 72-year-old female. She was sitting up in a chair. Was not in any distress. HEENT: Mucosa is pink and moist. Anicteric. Acyanotic. Neck: Supple. Chest: Clear to auscultation. Just a few crepitations in the bases. Cardiovascular: Regular rate and rhythm. No murmurs, no rubs, no gallops. Gastrointestinal: Abdomen was soft, nontender. Bowel sounds present. Extremities: About 1+ pedal edema. Central nervous system: Patient was awake, alert, and oriented. No focal neurological deficit. DIAGNOSTIC DATA: Chemistry: Sodium is 135, potassium 3.6, chloride 82, bicarbonate 13, creatinine is 1.6. PATIENT'S INTAKE AND OUTPUT: Urine output was 2600. CURRENT WEIGHT: Weight has not been checked since 04/11/2018. CURRENT MEDICATIONS: Include: 1. Lisinopril 2.5 daily. 2. Pravastatin 40 at bedtime. 3. Seroquel 400 at bedtime. 4. Spironolactone 12.5 daily. 5. Levothyroxine. 6. Insulin. 7. Furosemide 40 mg b.i.d. ASSESSMENT: 1. Fluid overload secondary to combination of congestive heart failure and renal failure. The patient was just started on high doses of IV Lasix. She has been adequately diuresing. Lasix was switched to p.o. 2. Acute on chronic congestive heart failure ejection fraction of 30% to 35%. We will continue with current management. Cardiology is on board. 3. Dilated ischemic cardiomyopathy. Noted. 4. Acute on chronic kidney disease, stage 3A, presumably cardiorenal. Creatinine is fairly stable. Patient is making adequate urine output. 5. Hypertension, controlled. 6. History of schizoaffective disorder associated with hypersexuality and increased libido. The patient was evaluated at [facility]. She was determined not to meet inpatient criteria. The patient has been started on Seroquel. 7. Diabetes mellitus. We will continue with insulin regimen. PLAN: In general, Ms. Collazo has been hospital for the past 11 days, mainly because of congestive symptoms which seem to be progressively getting better. The patient was at one time on high dose of IV Lasix. This has been gradually transitioned to p.o. She is now fairly stable for discharge; however, the patient's sister has declined to accept her back. Social workers are now working on the discharge plan. I have spoken with Ms. Collazo on this point, and she is now willing to go to a rehabilitation, so we have communicated this to the social human services assistants. She has made [facility] as her choice. Hopefully, we can get her a bed within a day or 2. cc: Kashmir Garcia MD MTDD
[2018-04-18] MEDS: SEROQUEL PO SCH (20:57)
[2018-04-18] MEDS: ASPIRIN PO SCH (21:01)
[2018-04-18] MEDS: PRAVACHOL PO SCH (21:01)
[2018-04-19] MEDS: DUONEB (A & A) INH SCH ×3 (03:46→15:14)
[2018-04-19] MEDS: SYNTHROID PO SCH (06:37)
[2018-04-19] MEDS: MIRALAX PO SCH ×2 (07:52→15:29)
[2018-04-19] MEDS: ISORDIL PO SCH ×3 (07:53→15:41)
[2018-04-19] MEDS: VITAMIN D PO SCH (07:54)
[2018-04-19] MEDS: FERROUS SULFATE PO SCH ×2 (07:54→15:30)
[2018-04-19] MEDS: BASAGLAR SUBQ SCH (07:54)
[2018-04-19] MEDS: ALDACTONE PO SCH ×2 (07:54→15:28)
[2018-04-19] MEDS: PRINIVIL PO SCH ×2 (07:54→15:29)
[2018-04-19] MEDS: COREG PO SCH (07:54)
[2018-04-19] MEDS: MUCINEX PO SCH (07:54)
[2018-04-19] MEDS: APRESOLINE PO SCH ×3 (07:54→15:41)
[2018-04-19] MEDS: LASIX PO SCH ×2 (07:54→15:29)
[2018-04-19 08:13] LABS: ALBUMIN 3.3 g/dL (3.5-5.0); CALCIUM 8.4 mg/dL (8.8-10.2); CREATININE 1.6 mg/dL (0.5-0.9); PHOSPHORUS 3.2 mg/dL (2.7-4.5); POTASSIUM 3.6 mmol/L (3.5-5.1)
[2018-04-19] MEDS ORDERED: KLOR-CON PO SCH (11:00)
--- NOTE | 2018-04-19 11:32 | NEPHROLOGY PROGRESS NOTE ---
DATE: 04/19/2018 TIME SEEN: 0835. SUBJECTIVE: Ms. Collazo is sitting up in a chair. She is eating her breakfast. She has just gotten herself out of the bathroom. States that she has been feeling well, much improved. OBJECTIVE: Vitals: Her most recent vital signs temperature 98.4 degrees, blood pressure 121/58, heart rate 84, respirations 20. She is on room air. Last recorded saturation 100%. General: This is a 72-year-old white female resting quietly, sitting up in a chair in no acute distress. Skin: Warm and dry. HEENT: Normocephalic, atraumatic. Conjunctiva is pale pink. She has ADRIAN. Mucous membranes are moist. Neck: Supple. Trachea midline. No JVD noted. Cardiovascular: Regular rate and rhythm. She has an S4. Lungs: Clear to auscultation. Equal excursion. She is on room air. Abdomen: Soft, nontender, positive bowel sounds. Genitourinary : Patient is voiding. Requested to keep strict input and output. Extremities: Trace pretibial edema. No clubbing or cyanosis. Integumentary: Warm and dry. Neurological: Alert and oriented x3. INPUT AND OUTPUT: She has had 840 in. She has had 0 recorded out. LABORATORY DATA: Sodium 126, potassium 3.1, chloride 84, CO2 30, BUN 36, creatinine 1.6, glucose 86, anion gap of 12, calcium 8.4, phosphorus 3.2, albumin 3.3. Previous hemoglobin 8.9 on 04/15. ASSESSMENT AND PLAN: 1. Chronic kidney disease stage 3. Patient remains stable with a creatinine of 1.6. Good urine output. Again requested to continue to keep strict input and output. She remains on Lasix 40 mg b.i.d. 2. Electrolytes and acid-base balance. Patient is mildly hypokalemic and hyponatremic. Again, we have restricted her fluid intake to 1.5 L. We will give her some potassium supplement replacement, if not ordered. 3. Acid-base balance. This is stable. 4. Anemia. This is low, but stable. 5. Fluid volume overload. Patient remains on oral p.o. intake with oral Lasix. She has improved, in preparation for possible discharge. I would like to thank you for allowing us to follow with this patient. Dictated by SCOTT Elder for Primo King MD Face to face encounter, data reviewed, discussed with Debora Merino on 04/19/18. I agree with the above assessment and plan of care. cc: SCOTT Elder MD [facility]
[2018-04-19 11:43] VITALS: BP 104/58
--- NOTE | 2018-04-19 14:28 | DISCHARGE SUMMARY ---
ADMISSION DATE: 04/07/2018 DISCHARGE DATE: 04/19/2018 CONSULTATIONS: 1. Dr. Primo King with Nephrology. 2. Dr. Kolby Jackson with Cardiology. PERTINENT PROCEDURES: 1. Initial chest x-ray: Cardiomegaly with pulmonary edema. 2. Final chest x-ray: Mild interval improvement. DISCHARGE DIAGNOSES: 1. Chronic kidney disease, stage 3. Patient remains with a stable creatinine of 1.6. Good urine output. The patient will need to continue with strict inputs and outputs and will remain on Lasix 40 mg p.o. b.i.d. Electrolytes, acid base are in balance. She remains mildly hypokalemic and hyponatremic. Again, requesting restricting her fluids to 1.5 L. She was replenished with her potassium. 2. Acid base is in balance. 3. Anemia is stable. 4. Fluid volume overload secondary to combination of congestive heart failure and renal failure. Again, the patient will continue on p.o. Lasix, strict inputs and outputs and daily weights. 5. Vaobp-bi-hnrxagl congestive heart failure with an EF of 30% to 35%. Followed by Cardiology. Will continue on current regimen. 6. Dilated ischemic cardiomyopathy noted. 7. Hypertension, controlled. 8. History of schizoaffective disorder associated with hypersexuality and increased libido. The patient was evaluated by Megan Ortega. She was determined to not meet inpatient criteria. She has been started on Seroquel. 9. Diabetes mellitus. Continue insulin regimen. HOSPITAL COURSE: Briefly, Ms. Collazo has been in the hospital for the past 12 days mainly because of congestive heart failure symptoms, which have progressively improved with diuresis with IV Lasix. She was transitioned to p.o. She has been diuresed appropriately. Her kidney function was followed by Dr. King. She has maintained her normal baseline. The patient was approaching ready for discharge; however, her sister has declined to except her back. General Manager was consulted to work on a discharge plan. We had her evaluated by Megan Ortega who deemed she was not appropriate for inpatient admission. She is willing to go to rehab and will be discharged today to [facility] to continue working with physical therapy. DISCHARGE VITAL SIGNS: At time of discharge, temperature is 98, heart rate 80, respirations 20, blood pressure 104/58. O2 is 100% on room air. DISCHARGE DIET: Renal. DISCHARGE MEDICATIONS: 1. Seroquel 400 mg p.o. at bedtime. 2. B complex with vitamin C, 1 each p.o. daily. 3. Vitamin D3, 2 each p.o. daily. 4. Lasix 40 mg p.o. b.i.d. 5. Lantus 30 units subcutaneously b.i.d. 6. Iron 65 mg p.o. daily. 7. Pravachol 40 mg p.o. daily. 8. Aspirin 81 mg p.o. at bedtime. 9. Melatonin 5 mg p.o. at bedtime. 10. Coreg 12.5 mg p.o. q.12 hours. 11. Apresoline 25 mg p.o. t.i.d. 12. Isosorbide dinitrate 10 mg p.o. t.i.d. 13. Synthroid 50 mcg p.o. daily. 14. Prinivil 5 mg p.o. daily. 15. MiraLAX 17 g p.o. q.a.m. 16. Klor-Con 40 mEq p.o. b.i.d. 17. Aldactone 12.5 mg p.o. daily. FOLLOWUP: Ms. Collazo is being discharged to rehab. She will need to take all medications as prescribed. Continue to follow up with Dr. King and her vulnerability researcher. She is to take all medications as prescribed. She can return to the ED or call 911 for any worsening of symptoms. Dictated by SCOTT Hawley for King Anand MD Addendum: Patient seen and examined by myself. Agree with SCOTT note. It reflects my assessment and plan. Patient is being discharged in stable condition. Follow up with vulnerability researcher and enrollment counselor. cc: MD Primo Parks MD William D. Denney, MD Bernice Swain, MD MTDD
[2018-04-19] MEDS: VICON-C PO SCH (15:41)
== END 2018-04-19 17:31 | DRG 291 ==
LOC: ED 12:26 → 3S 18:52 → SUATTDRO 18:52 → 3S 04-09 17:34 → 3N 04-13 23:15
PROVIDERS: ATTEND Internal Medicine
CPT/HCPCS: 71010; 71020; 71045; 71046; 80048; 80053; 80069; 81001; 82270; 82550; 82607; 82728; 82746; 82805; 82948; 83540; 83550; 83605; 83735; 83880; 84443; 84484; 85025; 85027; 85610; 85730; 86850; 86900; 86901; 87088; 93005; 93010; 94640; 94761; 94762; 96374; 97116; 97162; 97530; 99285; 99291; A9270; J1940; XXXXX

== ENCOUNTER 2018-05-21 17:00 | Inpatient (IN) ==
[2018-05-21 18:03] LABS: BASO# 0.03 X1000 (0.0-0.2); BASO% 0.4 % (0.0-0.8); EOS# 0.39 X1000 (0.0-0.7); EOS% 4.9 % (0.0-10.0); HEMATOCRIT 32.8 % (37.0-47.0); HEMOGLOBIN 11.1 g/dL (12.0-16.0); LYMPH# 1.64 X1000 (1.2-3.4); LYMPH% 20.6 % (20.5-51.1); MCH 30.5 PG (27-31); MCHC 33.8 g/dL (33-37); MCV 90.1 FL (81-99); MONO# 0.86 X1000 (0.11-0.59); MONO% 10.8 % (1.7-9.3); MPV 10.4 FL (7.4-10.4); NEUT# 5.04 X1000 (1.4-6.5); NEUT% 63.3 % (42.2-75.2); PLT 260 X1000 (130-400); RBC 3.64 XMIL (4.2-5.4); RDW 16.1 % (11.5-14.5); WBC 7.96 X1000 (4.8-10.8)
[2018-05-21 18:52] LABS: ALB/GLOB RATIO 1.2; ALBUMIN 3.9 g/dL (3.5-5.0); CALCIUM 9.7 mg/dL (8.8-10.2); CREATININE 2.9 mg/dL (0.5-0.9); MAGNESIUM 2.1 mg/dL (1.5-2.7); POTASSIUM 6.6 mmol/L (3.5-5.1); TOTAL BILIRUBIN 0.28 mg/dL (0.20-1.00); TOTAL PROTEIN 7.2 g/dL (6.3-8.3)
[2018-05-21] MEDS ORDERED: CALCIUM CHLORIDE SYRINGE IV ONE (18:54)
[2018-05-21] MEDS ORDERED: D50W SYRINGE IV ONE (18:55)
[2018-05-21] MEDS ORDERED: SODIUM BICARBONATE 8.4% IV ONE (18:55)
[2018-05-21] MEDS ORDERED: KAYEXALATE PO ONE (18:56)
[2018-05-21] MEDS ORDERED: HUMULIN R IV ONE (18:56)
--- NOTE | 2018-05-21 19:01 | PROVIDER DOCUMENTATION ---
This chart was entered by Noreen Bunn Scribe, acting as scribe for Martin Mcgovern MD. HPI-General Adult <BenjaminSouleymane DonovanMunir - Last Filed: 05/22/18 01:04> - General Source: patient - History of Present Illness -Gen Adult Nature of Presenting Problems: 72 y/o female presents to the ED via EMS after hypoglycemic episode. The patient states she normally takes Lantus 15 units twice a day which was recently decreased and this morning she felt as if she had eaten well enough this morning she took her previous normal dose of 30 units. The patient states her right hand began aggressively shaking and she was aware but she could not control it. After a short time she was able to call 911 but has slurred speech for a time after this. The patient reports drinking apple juice and eating pimento cheese and crackers before EMS arrival. EMS states blood sugar 73 on their arrival. The patient has no complaints at this time other than her right hand shaking and not feeling normal. Location of Pain/Injury: reports: generalized Onset/Duration: reports: just prior to arrival Timing: reports: resolved prior to arrival Context/Activities at Onset: reports: light activity Associated Symptoms: denies: diarrhea, fever/chills, nausea, vomiting Similar Symptoms Previously?: No Recently seen or treated by another doctor?: No - Diabetes Related Context Context: reports: low blood sugar <Martin Mcgovern - Last Filed: 05/24/18 11:28> - General Chief Complaint: Low Blood Sugar Stated Complaint: stroke like Time Seen by Provider: 05/21/18 17:13 Allergies/Adverse Reactions: Patient Allergies Allergy/AdvReac Type Severity Reaction Status Date / Time bee venom protein (honey bee) Allergy Unknown Unknown Verified 05/22/18 00:54 cephalexin monohydrate * Allergy Unknown RASH Verified 05/22/18 00:54 [From Keflex] Penicillins Allergy Unknown ITCHING Verified 05/22/18 00:54 cephalexin [From Keflex] Allergy ITCHING Verified 05/22/18 00:54 Home Medications: Home Medication List Medication Instructions Recorded Confirmed Last Taken Type Aspirin 81 mg PO QHS 30 Days chewtab 05/25/16 05/22/18 05/20/18 Rx Carvedilol [Coreg] 12.5 mg PO Q12HR@0700,1900 #60 05/25/16 05/22/18 Unknown Rx tablet Melatonin 5 mg PO QHS 30 Days tablet 05/25/16 05/22/18 Unknown Rx Polyethylene Glycol 3350 [Miralax] 17 gm PO QAM 30 Days powder, 05/25/1605/21/18 Rx packet B Complex with Vitamin C [Super B 1 each PO DAILY 02/08/18 05/22/18 05/21/18 History with Vit C] Cholecalciferol (Vitd3)/Vit K2 [D3 2 each PO DAILY 02/08/18 05/22/18 05/21/18 History + K2 Dots 1,000 Units Tab] Furosemide [Lasix] 40 mg PO BID 02/08/18 05/22/18 05/21/18 History Insulin Glargine [Lantus] 30 unit SUBQ BID 02/08/18 05/22/18 05/21/18 History PRAVAstatin [Pravachol] 40 mg PO DAILY 02/08/18 05/22/18 05/21/18 History Levothyroxine [Synthroid] 50 microgm PO DAILY@0700 tablet 03/24/18 05/22/1805/10 Rx Iron,Carbonyl [Iron] 65 mg PO DAILY 04/07/18 05/22/18 05/21/18 History Quetiapine Fumarate [Seroquel] 400 mg PO QHS 04/07/18 05/22/18 Unknown History Hydralazine [Apresoline] 25 mg PO TID #90 tab 04/19/18 05/22/18 05/21/18 Rx Isosorbide Dinitrate [Isordil] 10 mg PO TID #90 tab 04/19/18 05/22/18 05/21/18 Rx LISINOpril [Prinivil] 5 mg PO DAILY #90 tab 04/19/18 05/22/18 05/21/18 Rx Potassium Chloride E.r. [Klor-Con] 40 meq PO BID #60 tab 04/19/18 05/22/1805/21 Rx Spironolactone [Aldactone] 12.5 mg PO DAILY #90 tab 04/19/18 05/22/18 05/21/18 Rx Sulfamethoxazole/Trimethoprim PO BID 05/22/18 05/20/18 08:00 History [Bactrim 400-80 mg Tablet] Review of Systems - Adult - REVIEW OF SYSTEMS - ADULT Constitutional: denies: chills, fever, night sweats Eyes: reports: no symptoms reported Ears, Nose, Mouth & Throat: reports: no symptoms reported Cardiovascular: reports: no symptoms reported Respiratory: reports: no symptoms reported Gastrointestinal: denies: abdominal pain, diarrhea, nausea, vomiting Genitourinary: reports: no symptoms reported Musculoskeletal: reports: no symptoms reported Integumentary: reports: no symptoms reported Neurological: denies: dizziness/vertigo, headache/migraines, numbness, paresthesia, slurred speech, syncope Psychiatric: reports: no symptoms reported Endocrine: reports: other (hypoglycemia). denies: change in skin pigment, excessive sweating Hematologic/Lymphatic: reports: no symptoms reported Allergic/Immunologic: reports: no symptoms reported All Other Systems: Reviewed and Negative <Martin Mcgovern - Last Filed: 05/24/18 11:28> Past History - Adult - PAST MEDICAL HISTORY-ADULT Review of Records: reports: Old Records Reviewed, Nursing Assessment Review, Medications Reviewed Major Childhood Illnesses: reports: denies history Cardiovascular: reports: CHF, HTN, hyperlipidemia, pacemaker (/defib) Respiratory: reports: denies history, asthma Gastrointestinal: reports: GERD Obstetrical/Gynecological: reports: denies history, other (breast cancer) Genitourinary: reports: denies history, kidney disease Musculoskeletal: reports: arthritis Neurological: reports: denies history Psychiatric: reports: schizophrenia Endocrine/Immune: reports: denies history, Diabetes, thyroid disorder Other Conditions: reports: denies history, cataract/glaucoma - PRIOR SURGERIES/PROCEDURES Surgical/Procedure History: reports: appendectomy, pacemaker (/defib), BTL, joint replacement (hip), other (cataract removal) - IMMUNIZATION STATUS Childhood Immunizations: See Nurse Assessment Flu Vaccine: See Nurse Assessment - FAMILY HISTORY Family History: reviewed, not pertinent - SOCIAL HISTORY Smoking: other (eformer smoker) <Martin Mcgovern - Last Filed: 05/24/18 11:28> Physical Exam-General - PHYSICAL EXAM-ADULT Initial Vital Signs Reviewed: Yes - CONSTITUTIONAL General Appearance: alert, no apparent distress - HEAD, EARS, NOSE, MOUTH & THROAT HENMT: normocephalic/atraumatic, moist mucous membranes - NECK Neck: non-tender, full range of motion, supple - RESPIRATORY Respiratory: lungs clear, normal breath sounds. negative: rales, rhonchi, wheezing, crepitus - CARDIOVASCULAR Cardiovascular: regular rate, rhythm - SKIN Integumentary: normal color, warm/dry. negative: diaphoresis - NEUROLOGIC Neurologic: grossly normal - PSYCHIATRIC Psych/Mental Status: normal mood/affect, oriented x 3 <Martin Mcgovern - Last Filed: 05/24/18 11:28> Progress - PLAN OF CARE/RESULTS Progress/Plan/Lab Results: Vital Signs - 8 hr 05/21/18 17:08 05/21/18 17:34 05/21/18 19:30 Temperature 98.4 F Pulse Rate 92 H 96 H Respiratory Rate 21 21 Blood Pressure 110/57 O2 Sat by Pulse Oximetry 98 96 05/21/18 20:00 05/21/18 20:30 05/21/18 21:00 Temperature Pulse Rate 88 85 86 Respiratory Rate 21 20 21 Blood Pressure O2 Sat by Pulse Oximetry 96 96 96 05/21/18 21:37 05/21/18 22:00 05/21/18 22:30 Temperature Pulse Rate 102 H 94 H 93 H Respiratory Rate 16 26 H 22 Blood Pressure O2 Sat by Pulse Oximetry 94 L 97 95 05/21/18 23:00 05/21/18 23:30 05/22/18 00:00 Temperature Pulse Rate 88 87 88 Respiratory Rate 29 H 24 27 H Blood Pressure O2 Sat by Pulse Oximetry 95 96 94 L 05/22/18 00:30 05/22/18 00:47 Temperature Pulse Rate 87 91 H Respiratory Rate 34 H 27 H Blood Pressure 133/99 O2 Sat by Pulse Oximetry 96 97 Laboratory Results - last 24 hr 05/21/18 05/21/18 05/21/18 17:31 17:55 17:55 WBC 7.96 RBC 3.64 L Hgb 11.1 L Hct 32.8 L MCV 90.1 MCH 30.5 MCHC 33.8 RDW Std Deviation 16.1 H Plt Count 260 MPV 10.4 Immature Gran % (Auto) 0.0 Neut % (Auto) 63.3 Lymph % (Auto) 20.6 Morgan % (Auto) 10.8 H Eos % (Auto) 4.9 Baso % (Auto) 0.4 Immature Gran # (Auto) 0.00 Neut # (Auto) 5.04 Lymph # (Auto) 1.64 Morgan # (Auto) 0.86 H Eos # (Auto) 0.39 Baso # (Auto) 0.03 Sodium 130 L Potassium 6.6 H* Chloride 99 Carbon Dioxide 20 L Anion Gap 11 BUN 44 H Creatinine 2.9 H Estimated GFR/1.73 m2 19 BUN/Creatinine Ratio 15 Glucose 87 POC Glucose 119 H Calculated Osmolality 271 Calcium 9.7 Magnesium 2.1 Total Bilirubin 0.28 AST 35 H ALT 50 H Alkaline Phosphatase 166 H Total Protein 7.2 Albumin 3.9 Globulin 3.3 Albumin/Globulin Ratio 1.2 05/21/18 05/21/18 20:31 23:52 WBC RBC Hgb Hct MCV MCH MCHC RDW Std Deviation Plt Count MPV Immature Gran % (Auto) Neut % (Auto) Lymph % (Auto) Morgan % (Auto) Eos % (Auto) Baso % (Auto) Immature Gran # (Auto) Neut # (Auto) Lymph # (Auto) Morgan # (Auto) Eos # (Auto) Baso # (Auto) Sodium 136 Potassium 6.3 H* Chloride 104 Carbon Dioxide 22 L Anion Gap 10 BUN 43 H Creatinine 3.0 H Estimated GFR/1.73 m2 19 BUN/Creatinine Ratio 14 Glucose 65 L POC Glucose 177 H Calculated Osmolality 281 Calcium 10.3 H Magnesium Total Bilirubin AST ALT Alkaline Phosphatase Total Protein Albumin Globulin Albumin/Globulin Ratio Orders Category Date Time Status Regular Diet Diet 05/21/18 17:27 Active BMP [BASIC METABOLIC PANEL] [CHEM] Stat Lab 05/21/18 23:52 Completed CBC WITH DIFF [HEME] Stat Lab 05/21/18 17:55 Completed COMPREHENSIVE METABOLIC PANEL [CHEM] Stat Lab 05/21/18 17:55 Completed MAGNESIUM [CHEM] Stat Lab 05/21/18 17:55 Completed Calcium Chloride Syringe Med 05/21/18 18:54 Discontinued 1 gm IV NOW ONE Dextrose 50% Syringe [D50w Syringe] Med 05/21/18 18:55 Discontinued 50 ml IV NOW ONE Insulin Human Regular [Humulin R] Med 05/21/18 18:56 Discontinued 8 unit IV NOW ONE Sodium Bicarbonate 8.4% Med 05/21/18 18:55 Discontinued 100 meq IV NOW ONE Sodium Polystyrene [Kayexalate] Med 05/21/18 18:56 Discontinued 15 gm PO NOW ONE EKG [EKG] Stat Ther 05/21/18 19:22 Ordered Result Diagrams: 05/21/18 17:55 05/21/18 23:52 <Souleymane Alexander - Last Filed: 05/22/18 01:04> - PLAN OF CARE/RESULTS Progress/Plan/Lab Results: Vital Signs - 8 hr 05/21/18 17:08 Pulse Rate 90 Respiratory Rate 16 Blood Pressure 110/57 O2 Sat by Pulse Oximetry 100 Result Diagrams: 05/23/18 07:11 05/23/18 07:11 - REASSESSMENT Reassessment #1 Time Reassessed: 18:59 Status: unchanged (lab called critical hyperkalemia; patient asymptomatic/ unchanged. meds ordered: Dr. Alexander assuming care) - EKG 1 Time of EKG reading by physician:: 17:41 EKG Read and Signed by:: Martin Mcgovern ( ) EKG Interpretation (*Must complete 3 of following elements*): Abnormal Rate: 92 Rhythm: paced rhythm Shorter: normal - CHANGE OF SHIFT REPORT (ED Provider) 1 Report Given and Care Transferred to:: Benjamin Time of Transfer: 19:00 <Martin Mcgovern - Last Filed: 05/24/18 11:28> Departure - Departure Date of Disposition Decision: 05/22/18 Time of Disposition Decision: 01:04 Certified Medical Emergency: Emergent - Critical Care Note This patient required my direct & personal management of CC.: No <Souleymane Alexander - Last Filed: 05/22/18 01:04> - Departure Certified Medical Emergency: Emergent - Critical Care Note This patient required my direct & personal management of CC.: Yes Total Time (mins): 35 Critical Care Statement: This patient required my direct personal management to treat or rule out processes, the absence of which, could potentiallly result in sudden, clinically significant life or limb threatening deterioration. <Martin Mcgovern - Last Filed: 05/24/18 11:28> - Departure DIAGNOSIS: Hyperkalemia Disposition: ADMITTED INPATIENT 09 Condition: Critical Attestation - Physician/ RAMÓN Attestation Patient care was provided by Advanced Practice Provider:: No The physician spent face to face time with patient:: Yes Advanced Practice Provider documentation review:: Supervising physician onsite and consulted in the evaluation and care of this patient. The physician did have a face to face encounter with the patient. <Souleymane Alexander - Last Filed: 05/22/18 01:04> - Physician/ RAMÓN Attestation The physician spent face to face time with patient:: Yes Advanced Practice Provider documentation review:: Supervising physician onsite and consulted in the evaluation and care of this patient. The physician did have a face to face encounter with the patient. <Martin Mcgovern - Last Filed: 05/24/18 11:28> This chart was documented by the indicated scribe, (Noreen Bunn, Sc[place]) and accurately reflects the services I performed and decisions made by me, Martin Mcgovern MD, as attested by the provider's signature.
[2018-05-22 00:28] LABS: CALCIUM 10.3 mg/dL (8.8-10.2)
[2018-05-22 00:36] LABS: POTASSIUM 6.3 mmol/L (3.5-5.1)
[2018-05-22] MEDS ORDERED: LASIX IV ONE (01:32)
[2018-05-22] MEDS ORDERED: D5W 500 ML IV ONE (01:32)
--- NOTE | 2018-05-22 02:35 | HISTORY AND PHYSICAL ---
PHYSICIAN: Patient of Dr. Johanna Alonzo. STOCK PATCH SAWYER: Dr. Jackson. REASON FOR ADMISSION: Tremors and shaking late last night. HISTORY OF PRESENT ILLNESS: Ms. Rasheeda Collazo is a 72-year-old lady with a past medical history of type 2 diabetes insulin requiring, chronic anemia, hypertension and hyperthyroidism, CKD stage 4, prior breast cancer, coronary artery disease, schizoaffective disorder, asthma, reflux disease, chronic systolic heart failure with dilated cardiomyopathy. She comes into the hospital because she developed sudden violent uncontrollable shaking of both her hands worse on the right. She had a hard time even dialing EMS because of this unexplained shaking. Eventually when they did come, they noticed that she was mumbling and unable to enunciate her words. Her sister, who had just been out of the house, came back and noticed that her sister was slurring but she could see her sister was able to focus but unable to voice her words. After about a few minutes, the patient "snapped out of this slurred and mumbling phase" and her speech became lucid and coherent. Her blood sugar was found to be 70 and this was after eating her meal less than an hour ago. She was given some more apple juice and then brought to the ER to be evaluated. Since she has been in the ER, other than her having some cramps in her hands which have since resolved, she denies any other complaints. She denies any palpitations or cardiorespiratory complaints. No diarrhea or genitourinary complaints. No focal neurological complaints. At this point in time, the tremors have subsided. REVIEW OF SYSTEMS: Twelve-system review was done. Positive findings per HPI. She reports that since her discharge from the hospital in mid March she has been taking high amounts of potassium pills, i.e. 4 times a day, and she thinks this may be playing a role in her symptoms. ALLERGIES: Bee venom, penicillin and Keflex. MEDICATIONS: Home medications include aspirin 81 mg and vitamin B complex, Coreg 12.5 mg b.i.d., cholecalciferol 2 tablets daily, Lasix 40 mg b.i.d., hydralazine 25 mg t.i.d., Lantus 30 units b.i.d., iron carbonyl 1 tablet daily, Isordil 10 mg t.i.d., Synthroid 50 mcg daily, lisinopril 5 mg daily, melatonin 5 mg at bedtime, MiraLax 17 g daily, pravastatin 40 mg daily , Seroquel 400 mg at bedtime, spironolactone 12.5 mg daily. SURGICAL HISTORY: Total hip replacement, tubal ligation, appendectomy, mastectomy, defibrillator pacemaker placement. SOCIAL HISTORY: Lives with her sister but does not smoke, drink or use illicit drugs. FAMILY HISTORY: Notable for heart disease, diabetes, cancer, hypertension and her brother has schizophrenia. LABORATORY STUDIES: White count 7000. Hemoglobin and hematocrit 11 and 32. Platelets 260 with normal differential. Initial labs: Sodium was 130, potassium 6.6, BUN of 44, creatinine 2.9. Repeat showed a potassium of 6.3, BUN of 30, creatinine of 3.0, glucose of 65, calcium 10.3, AST 35, ALT 50, alkaline phosphatase 166. EKG does show paced rhythm. PHYSICAL EXAMINATION: VITAL SIGNS: Blood pressure 139/ 80 heart rate 91, respirations 27, temperature 98.4. She is 97% on room air. GENERAL: She is an elderly -[place] woman who is not in acute distress. She is A and O times 3 with normal mood and affect. HEENT: Head is normocephalic, atraumatic. Eyes: PERRLA. EOMI. She is anicteric and not pale. ENT and oropharynx exams grossly normal. NECK: Supple. No JVD, carotid bruit, thyromegaly. CHEST: Decreased entry into both bases, otherwise good, clear to auscultation. CARDIOVASCULAR: First and second heart sounds heard. No gallops, murmurs or rubs. Rhythm is regular. ABDOMEN: Protuberant, soft, with no mass or megaly. No focal areas of tenderness. Bowel sounds are hypoactive. RECTAL: Exam deferred at this time. EXTREMITIES: The patient has 1-plus pitting edema distally in her lower extremities. However, pulse volume is 1-2 plus, regular and symmetrical. No clubbing or peripheral cyanosis. NEUROLOGICAL: No focal deficits. No asterixis or tremors noted. SKIN: Intact with no breakdown, lesion or erythema. MUSCULAR: Exam is grossly normal. ASSESSMENT: 1. Hyperkalemia secondary to chronic kidney disease plus excessive potassium ingestion. 2. Chronic kidney disease stage 4. 3. Type 2 diabetes with nephropathy. 4. Chronic systolic heart failure, stable. 5. Hypertensive heart and kidney disease. 6. Hyperlipidemia. 7. Coronary artery disease. 8. Schizoaffective disorder. PLAN: Patient will be started on glucose drip for first reason because of patient's propensity to being hypoglycemic but also because this was induced increased insulin secretion this may also augment further decline in potassium. Patient has been given Kayexalate, bicarbonate, calcium chloride and D50 with insulin. We will add to this regimen albuterol megadose and IV Lasix. Repeat BMP in 2 hours to see if our treatment is working and again in another 4 hours. We will discontinue potassium chloride and Aldactone. May hold lisinopril to further lower this. Patient's home medications were revised and most of them will be started. Also put patient on sliding scale in addition to Lantus but we will modify the dose of Lantus to a lower dose because of patient's worsening renal function as this may increase further hypoglycemia and the patient states that her appetite has declined over several months. Has had a couple of hypoglycemic spells. cc: Maira Winn MD MTDD
[2018-05-22] MEDS ORDERED: ALBUTEROL 0.5% INH CONC FOR HYPERKALEMIA INH ONE (05:35)
[2018-05-22] MEDS ORDERED: TYLENOL PO PRN (05:35)
[2018-05-22] MEDS ORDERED: ZOFRAN IV PRN (05:35)
[2018-05-22] MEDS: D5W 1,000 ML IV SCH ×2 (06:06→19:36)
[2018-05-22] MEDS: COREG PO SCH ×2 (06:08→18:23)
[2018-05-22] MEDS: HUMALOG SUBQ SCH ×4 (06:08→22:00)
[2018-05-22] MEDS: SYNTHROID PO SCH (06:08)
[2018-05-22] MEDS: LASIX PO SCH ×2 (08:29→20:50)
[2018-05-22] MEDS: APRESOLINE PO SCH ×3 (08:29→20:50)
[2018-05-22] MEDS: BASAGLAR SUBQ SCH ×2 (08:30→20:51)
[2018-05-22] MEDS: ISORDIL PO SCH ×3 (08:35→20:50)
[2018-05-22] MEDS: PRAVACHOL PO SCH (08:35)
[2018-05-22] MEDS: MIRALAX PO SCH (08:37)
[2018-05-22] MEDS: VELTASSA PO SCH ×2 (08:47→16:47)
[2018-05-22 10:05] LABS: CALCIUM 9.6 mg/dL (8.8-10.2); CREATININE 2.8 mg/dL (0.5-0.9); POTASSIUM 5.2 mmol/L (3.5-5.1)
[2018-05-22] MEDS: SEROQUEL PO SCH (20:50)
[2018-05-22] MEDS: ASPIRIN PO SCH (20:50)
[2018-05-22] MEDS: MELATONIN PO SCH (20:50)
[2018-05-23] MEDS: VELTASSA PO SCH (00:13)
[2018-05-23] MEDS: HUMALOG SUBQ SCH ×4 (05:42→20:45)
[2018-05-23] MEDS: COREG PO SCH ×2 (06:25→20:19)
[2018-05-23] MEDS: SYNTHROID PO SCH (06:25)
[2018-05-23] MEDS: D5W 1,000 ML IV SCH ×2 (06:25→15:17)
[2018-05-23 07:47] LABS: BASO# 0.03 X1000 (0.0-0.2); BASO% 0.4 % (0.0-0.8); EOS# 0.88 X1000 (0.0-0.7); EOS% 12.6 % (0.0-10.0); HEMATOCRIT 32.1 % (37.0-47.0); HEMOGLOBIN 10.7 g/dL (12.0-16.0); IMM GRAN# 0.02 X1000 (0.0-0.04); IMM GRAN% 0.3 % (0.0-0.5); LYMPH# 1.54 X1000 (1.2-3.4); LYMPH% 22.1 % (20.5-51.1); MCHC 33.3 g/dL (33-37); MCV 89.9 FL (81-99); MONO# 1.13 X1000 (0.11-0.59); MONO% 16.2 % (1.7-9.3); MPV 10.5 FL (7.4-10.4); NEUT# 3.38 X1000 (1.4-6.5); NEUT% 48.4 % (42.2-75.2); PLT 240 X1000 (130-400); RBC 3.57 XMIL (4.2-5.4); RDW 15.8 % (11.5-14.5); WBC 6.98 X1000 (4.8-10.8)
[2018-05-23 08:04] LABS: ALBUMIN 3.4 g/dL (3.5-5.0); CALCIUM 9.3 mg/dL (8.8-10.2); CREATININE 2.2 mg/dL (0.5-0.9); PHOSPHORUS 4.4 mg/dL (2.7-4.5); POTASSIUM 4.2 mmol/L (3.5-5.1)
[2018-05-23] MEDS: MIRALAX PO SCH (08:35)
[2018-05-23] MEDS: PRAVACHOL PO SCH (08:41)
[2018-05-23] MEDS: BASAGLAR SUBQ SCH ×2 (08:41→20:20)
[2018-05-23] MEDS: LASIX PO SCH ×2 (08:41→20:19)
[2018-05-23] MEDS: APRESOLINE PO SCH ×3 (08:42→20:19)
[2018-05-23] MEDS: ISORDIL PO SCH ×3 (08:42→20:19)
--- NOTE | 2018-05-23 09:09 | NEPHROLOGY CONSULTATION ---
DATE: 05/23/2018 REASON FOR CONSULTATION: Hyperkalemia and acute kidney injury overlying chronic kidney disease. HISTORY OF PRESENT ILLNESS: Ms. Collazo is a 72-year-old, black female that we have seen multiple times in the past. She has diabetic nephropathy with baseline creatinine approximately 2. During March, her creatinine ranged actually from 1.2 to 1.6 at the time of discharge. She had a rather protracted hospitalization from April 07 until April 19, but in fact has been in the hospital perhaps 4 times over the last 3 months. Her most recent admission in March was for congestive heart failure symptoms and she was treated with fluid restriction and diuretics and was discharged on 40 mg b.i.d. of Lasix and low-dose Prinivil. She returned to the hospital over the weekend because she states she became shaky and tremulous and unsteady at home. Her symptoms were worse on the right by her estimation, but these symptoms have been progressively improved. She called 911 and they recommended that she come to the emergency room for evaluation. Her admission note states that her symptoms of tremulousness had resolved by the time of their exam. Her laboratory data on admission found moderate hyperkalemia with potassium 6.6 and abnormal creatinine at 2.9, again with baseline of approximately 1.6. She states she has been able to lay flat without shortness of breath. Her swelling has been much better. She does relate episodes of hypoglycemia at home and she has skipped several insulin doses for this reason. PAST MEDICAL HISTORY: Diabetes, obesity, hypertension, schizoaffective disorder, dilated cardiomyopathy. HOME MEDICATIONS: Carvedilol, melatonin, aspirin, MiraLAX, furosemide, pravastatin, B-complex, cholecalciferol, insulin, levothyroxine, iron, carbonyl, quetiapine, isosorbide, hydralazine, lisinopril, potassium, spironolactone, trimethoprim sulfamethoxazole. I do not have a reason for the trimethoprim sulfamethoxazole. ALLERGIES: Penicillin. Cephalosporins. SOCIAL HISTORY: She lives with her sister. No alcohol or tobacco. FAMILY HISTORY: Noncontributory. REVIEW OF SYSTEMS: Otherwise, noncontributory. PHYSICAL EXAMINATION: Vital Signs: Blood pressure 110/45, heart rate 99, respiration 18, afebrile. General: She is an obese, black female, lying on her right side. No acute distress. Skin: Warm and dry. Conjunctivae are pink. Pupils are equal. Oropharynx not examined. Neck: Supple. Trachea is midline. Neck vein distention is not visible. Heart: PMI is nonpalpable. Regular rate and rhythm without gallops or murmurs. Lungs: Equal breath sounds, no crackles or wheezes. Abdomen: Soft, nontender. Bowel sounds are present. Extremities: Trace edema. No clubbing or cyanosis. Neurologic: Grossly nonfocal. No tremors. IMPRESSION: Acute kidney injury overlying chronic kidney disease. There has been little change since admission. BUN is trending downward, but creatinine is unchanged. She was reportedly taking Bactrim at home with her home medications, including spironolactone, furosemide, lisinopril. This combination may be an adequate explanation for her hyperkalemia and her acute kidney injury. The Bactrim has been discontinued as has her spironolactone. Lisinopril also withheld. I believe this is appropriate, and I will make no changes in the short term. We await her labs from this morning. We will check UA and urine electrolytes. Urine protein. We will follow with you. cc: Primo King MD
--- NOTE | 2018-05-23 11:44 | EKG Report ---
Test Performed on : 05/21/2018 5:07:28 PM Test Reason : CP Blood Pressure : / mmHG Vent. Rate : 092 BPM Atrial Rate : 092 BPM P-R Int : 162 ms QRS Dur : 150 ms QT Int : 410 ms P-R-T Axes : 050 -88 073 degrees QTc Int : 507 ms Atrial-sensed ventricular-paced rhythm Abnormal ECG When compared with ECG of 08-APR-2018 07:11, Vent. rate has increased BY 16 BPM Unconfirmed Result
[2018-05-23 15:19] LABS: URINE SOURCE VOIDED
[2018-05-23 15:39] LABS: BILIRUBIN URINE NEGATIVE (NEGATIVE); BLOOD URINE NEGATIVE (NEGATIVE); COLOR STRAW; GLUCOSE URINE NEGATIVE (NEGATIVE); KETONE URINE NEGATIVE (NEGATIVE); LEUKOCYTES URINE NEGATIVE (NEGATIVE); NITRITE URINE NEGATIVE (NEGATIVE); PROTEIN URINE NEGATIVE (NEGATIVE); TURBIDITY URINE CLEAR (CLEAR); UROBILINOGEN URINE NORMAL (NORMAL)
[2018-05-23 15:40] LABS: UR CREAT RANDOM 18.2 mg/dL (11-20); UR PROT RANDOM < 4.0 mg/dL; UR SODIUM 54 mmoll
[2018-05-23 15:42] LABS: UR EPITHELIAL CELLS <10 /HPF (<10); URINE BACTERIA NEGATIVE /HPF; URINE RBC <10 /HPF (<10); URINE WBC <10 /HPF (<10)
--- NOTE | 2018-05-23 18:33 | PROGRESS NOTE ---
DATE: 05/23/2018 SUBJECTIVE: Patient is resting in bed. Not in any obvious distress. OBJECTIVE: Vital Signs: Temperature 97.9 degrees, pulse 84, respiratory rate 16, blood pressure is 116/61, oxygen saturation is 100%. HEENT: Atraumatic, normocephalic. Cardiovascular system: S1, S2. Respiratory system: Has evidence of good air entry bilaterally. Abdomen: Soft, nontender. No masses felt. Extremities: No evidence of significant edema noted. Central nervous system: No obvious focal deficits noted. LABS: WBC 6.98, hematocrit is 32.1, with a platelet count of 240,000. Sodium is 128, potassium 4.2, chloride is 93, bicarb 23, BUN is 29, creatinine 2.2. ASSESSMENT AND PLAN: 1. Hyperkalemia. This seems to have been corrected. 2. Chronic kidney disease. Nephrology following. 3. Type 2 diabetes mellitus. Monitor blood sugar levels. Maintain patient on sliding scale insulin. 4. Chronic systolic heart failure. The patient is currently stable. Monitor intake and output and daily weights. Use diuretics if needed. 5. Hypertension. Continue current antihypertensive regimen. 6. Hyperlipidemia. Check lipid panel and continue patient on statin. 7. Coronary artery disease. Asymptomatic. Continue patient on aspirin, beta zina, Isordil dinitrate, as well as a statin. 8. Schizoaffective disorder. Continue to replace psych medications. 9. Deep vein thrombosis prophylaxis. SCDs. 10. Gastrointestinal prophylaxis. PPI. cc: Ari Mills MD
[2018-05-23] MEDS: MELATONIN PO SCH (20:19)
[2018-05-23] MEDS: SEROQUEL PO SCH (20:19)
[2018-05-23] MEDS: ASPIRIN PO SCH (20:19)
[2018-05-24] MEDS: D5W 1,000 ML IV SCH ×3 (04:14→11:32)
[2018-05-24] MEDS: SYNTHROID PO SCH (06:16)
[2018-05-24] MEDS: HUMALOG SUBQ SCH ×4 (06:16→23:14)
[2018-05-24] MEDS: COREG PO SCH ×2 (06:16→18:19)
[2018-05-24] MEDS ORDERED: INSULIN PEN NEEDLES ONE (07:50)
[2018-05-24] MEDS: LASIX PO SCH (09:09)
[2018-05-24] MEDS: PRAVACHOL PO SCH (09:09)
[2018-05-24] MEDS: APRESOLINE PO SCH ×3 (09:09→20:15)
[2018-05-24] MEDS: BASAGLAR SUBQ SCH ×2 (09:10→21:05)
[2018-05-24] MEDS: ISORDIL PO SCH ×3 (09:10→21:15)
[2018-05-24] MEDS: MIRALAX PO SCH (09:11)
--- NOTE | 2018-05-24 09:18 | NEPHROLOGY PROGRESS NOTE ---
DATE: 05/24/2018 TIME SEEN: 0635. SUBJECTIVE: Ms. Collazo is sitting up in a chair. She is tolerating this well. She has no complaints today. OBJECTIVE: Her most recent vital signs: Her last temperature 98.3 degrees, blood pressure 108/52, heart rate 87, respirations are 19. She is on room air, last recorded saturation is 100%. She has had 1340 in, she has had 0 out documented though she states she has been voiding last night and this morning. LABORATORY DATA: Her sodium is 128, potassium 4.2, chloride 93, CO2 23, BUN 29 , creatinine 2.2, her glucose is 146, anion gap of 12, calcium is 9.3, phosphorus 4.4, albumin is 3.4. White count 6.98, hemoglobin 10.7, hematocrit 32.1, platelet count 240,000. PHYSICAL EXAMINATION: General: This is a 72-year-old female. She is sitting up in a chair. She has no complaints. She appears chronically ill. No acute distress. Skin: Warm and dry. HEENT: Normocephalic, atraumatic. Conjunctivae is pale pink. She has ADRIAN. Mucous membranes are dry. Neck: Supple. Trachea midline. No evidence of JVD. Cardiovascular: She is regular rate and rhythm. She is without murmur or gallop. Lungs: Clear to auscultation bilaterally. Equal excursion. On room air. Abdomen: Soft, round, nontender. Positive bowel sounds. Genitourinary: Not inspected. Patient states that she has been voiding adequate amounts. Extremities: Trace pretibial edema. No clubbing or cyanosis. Neurological: She is alert and oriented x3. ASSESSMENT AND PLAN: 1. Acute kidney injury on chronic kidney disease. Patient's BUN and creatinine have improved. Adequate urine output according to the patient. I&O not documented. We will request that they keep a strict intake and output. Her Bactrim has been held along with her spironolactone, Lasix, and lisinopril. No indications for intervention. 2. Electrolytes. Patient has hyponatremia. She states that her Seroquel has been held by the primary care. We will continue to monitor. 3. Acid-base balance. This is stable. 4. Anemia. This remains stable. 5. Hypoglycemia. This is followed by the primary care. I would to thank you for allowing us to follow with this patient. Dictated by SCOTT Elder for Primo King MD Face to face encounter, data reviewed, discussed with Debora Merino on 05/24/18. I agree with the above assessment and plan of care. cc: SCOTT Elder MD [facility]
[2018-05-24 12:08] LABS: CALCIUM 8.3 mg/dL (8.8-10.2); CREATININE 1.8 mg/dL (0.5-0.9); POTASSIUM 4.1 mmol/L (3.5-5.1)
--- NOTE | 2018-05-24 15:34 | PROGRESS NOTE ---
DATE: 05/24/2018 SUBJECTIVE: The patient is resting in bed, she is tolerating p.o., kidney function is getting better but she is having hyponatremia. At the moment of my evaluation she was getting a D5W, also she was getting Lasix twice a day which has been held for now, I think she received the morning dose. BUN and creatinine are getting better. I do believe this is her baseline or really close to her baseline. OBJECTIVE: Vital Signs: Temperature 98.4 degrees, pulse 93, respiratory rate 19, blood pressure 113/53, oxygen saturation 100% on room air. HEENT: Head normocephalic. No trauma. PERRLA. Neck: Supple. No JVD. No masses. Central trachea. Chest: Clear to auscultation. No wheezing. No rales. Abdomen: Soft, nontender, nondistended. No hepatosplenomegaly. Extremities: No evidence of significant edema. Neurological: Alert and oriented x3. No focal deficits. LABORATORY: Sodium 122, potassium 4.1, chloride 86, bicarbonate 24, BUN 27, creatinine 1.8, glucose 195, calcium 8.3. ASSESSMENT AND PLAN: 1. Hyperkalemia, resolved. 2. Hyponatremia, I will stop the D5W right now and I will hold the furosemide, I will recheck the morning labs again. She has been having hyponatremia before, I have some records from 2011, 2012 and 14 and even 18 with hyponatremia, I will monitor. Nephrology Department on board. 3. Acute on chronic kidney disease, BUN and creatinine are getting better. Probably that was related to her medications that she was taking at home, especially Bactrim plus her normal medications including furosemide, lisinopril and spironolactone, this is getting better. I think this is probably her baseline or is really close to her baseline. 4. Chronic systolic heart failure stable. 5. Hypertension stable. 6. Hyperlipidemia. Continue with same management. 7. History of coronary artery disease asymptomatic. 8. Schizoaffective disorder. Continue with the same management. She seems to be doing good. 9. Deep vein thrombosis prophylaxis with SCDs. 10. Gastrointestinal prophylaxis with PPI. cc: Raza Petty MD
[2018-05-24] MEDS: ASPIRIN PO SCH (21:05)
[2018-05-24] MEDS: SEROQUEL PO SCH (21:15)
[2018-05-24] MEDS: MELATONIN PO SCH (21:15)
[2018-05-25] MEDS: COREG PO SCH (06:27)
[2018-05-25] MEDS: HUMALOG SUBQ SCH ×2 (06:27→11:23)
[2018-05-25] MEDS: SYNTHROID PO SCH (06:28)
[2018-05-25 07:58] VITALS: BP 113/53
[2018-05-25 08:08] LABS: ALBUMIN 3.6 g/dL (3.5-5.0); CALCIUM 8.8 mg/dL (8.8-10.2); CREATININE 1.6 mg/dL (0.5-0.9); PHOSPHORUS 3.1 mg/dL (2.7-4.5); POTASSIUM 3.9 mmol/L (3.5-5.1)
--- NOTE | 2018-05-25 08:28 | NEPHROLOGY PROGRESS NOTE ---
DATE: 05/25/2018 TIME SEEN: 06. SUBJECTIVE: Ms. Collazo is actually standing in the doorway. States that she has just been up walking around. She is feeling much better, ready to go home. OBJECTIVE: Her most recent vital signs are last temperature 98 degrees, blood pressure 115/63, heart rate 85, respirations 18. She is on room air. Last recorded saturation is 100%. She has had 1760 in, she has had 0 recorded out but patient has been up walking, she states that she has been voiding adequate amount. LABORATORY DATA: Her labs are still pending. Her sodium yesterday was 122 with a BUN of 27, creatinine of 1.8. PHYSICAL EXAMINATION: General: This is a 72-year-old female resting quietly, now in a chair. She has no acute distress. Skin: Warm and dry. HEENT: Normocephalic, atraumatic. Conjunctiva is pale pink. She has ADRIAN. Mucous membranes are dry. Neck: Supple. Trachea midline. No evidence of JVD. Cardiovascular: She is regular rate and rhythm. She is without murmur or gallop. Lungs: Clear to auscultation bilateral, equal excursion on room air. Abdomen: Soft, large, round, nontender. Positive bowel sounds present. Genitourinary: Not inspected. Patient has been voiding adequate amounts. Extremities: Have no edema today. No clubbing or cyanosis. Neurological: Alert and oriented x3. ASSESSMENT AND PLAN: 1. Acute kidney injury on chronic kidney disease stage 3. Patient's BUN and creatinine have stabilized. We do not have labs back today. Adequate intake and output are documented. We will await for her labs for this a.m. 2. Electrolytes. The patient has been hyponatremic. We are currently waiting for labs to return. She had been taken off her Seroquel yesterday by her primary care. 3. Acid-base balance, stable. 4. Anemia. This is acceptable. 5. Hypoglycemia. Followed by primary care. This was stable yesterday. I would like to thank you for allowing us to follow with this patient. Dictated by SCOTT Elder for Primo King MD Face to face encounter, data reviewed, discussed with Debora Merino on 05/25/18. I agree with the above assessment and plan of care. cc: SCTOT Elder MD MTDD
[2018-05-25] MEDS: APRESOLINE PO SCH (09:28)
[2018-05-25] MEDS: MIRALAX PO SCH (09:28)
[2018-05-25] MEDS: PRAVACHOL PO SCH (09:28)
[2018-05-25] MEDS: BASAGLAR SUBQ SCH (09:29)
[2018-05-25] MEDS: ISORDIL PO SCH (09:29)
--- NOTE | 2018-05-25 19:48 | DISCHARGE SUMMARY ---
ADMISSION DATE: 05/22/2018 DISCHARGE DATE: 05/25/2018 DISCHARGE DIAGNOSES: 1. Yohcx-zo-mzzyclv kidney disease. 2. Hyperkalemia, resolved. 3. Hyponatremia. 4. Chronic systolic heart failure. 5. Hypertension. 6. Hyperlipidemia. 7. History of coronary artery disease, asymptomatic. 8. Schizoaffective disorder. HOSPITAL COURSE: A 72-year-old, female with a past medical history of type 2 diabetes on insulin, anemia, hypertension, hypothyroidism, CKD stage 4, prior breast cancer, coronary artery disease, schizoaffective disorder, asthma, GERD, and chronic systolic heart failure with dilated cardiomyopathy came to the emergency department and was admitted on 05/22/2018 due to sudden onset of shakiness of both hands that has been worse on the right. She has a hard time even dialing EMS because of this unexplained shaking. It looks like the sister also noticed this patient to be slurring, she could see her sister was able to focus but unable to voice her wants. After about a few minutes, the patient snapped out of her slurring and mumble phase, and her speech became better and coherent. Her blood sugar was found to be in the 70s after eating meals less than an hour ago. She was given some more apple juice and then brought to the emergency department to be evaluated. In the emergency department, she was having some cramps in her hands which have since resolved. She denies any other complaints. She denies any palpitation or cardiorespiratory issues. No diarrhea or genitourinary complaints. No focal neurological complaints. At the emergency department, she was found to have hyperkalemia 6.6. Sodium level is 130, BUN 44, and creatinine of 2.9 which is above her baseline. At home, as per the patient, she was taking too much potassium medication, around 40 mg 4 times a day. That was given because she was taking furosemide 40 mg twice a day. She has a history of chronic kidney disease and on top of that she started taking Bactrim which I believe has been the cause of this pkjki-zs-jmeiqoc kidney disease and hyperkalemia. Nephrology Department was consulted. They believe that this combination of Bactrim, spironolactone, furosemide, and lisinopril can explain her hyperkalemia and her acute kidney injury. Those medications were stopped. She received some IV fluids. She was improving on a daily basis. She became to be hyponatremic, so we stopped the IV fluids that she was getting initially. The blood sodium started to increase. She has no symptoms today. I discussed the case with Dr. King from Nephrology Department, and he states that this patient can go home and follow up with him in 1 or 2 weeks. Vital signs were stable as well as her kidney function basically came back to baseline. I do believe the hypoglycemia was related to a high amount of Lantus that she was taking at home. She was taking around 30 units subcutaneously b.i.d. I talked to the patient, and that has been decreased to 15 units subcutaneously twice a day, half of the dose. She will discuss the change with her primary care doctor. PHYSICAL EXAMINATION: Vital Signs: Temperature 98 degrees, pulse 82, respiratory rate 16, blood pressure 113/53, oxygen saturation 100% on room air. HEENT: Head normocephalic. No trauma. PERRLA. Neck: Supple. No JVD. No masses. Central trachea. Chest: Clear to auscultation. No wheezing. No rales. Abdomen: Soft, nontender, nondistended. No hepatosplenomegaly. Extremities: No edema. No clubbing. No cyanosis. Neurological: The patient is alert and oriented x3. No focal deficits. LABORATORY: Sodium 126, potassium 3.9, chloride 89, bicarbonate 24, BUN 26, creatinine 1.6, glucose 115, calcium 8.8, and phosphorus 3.1. DISCHARGE MEDICATIONS: 1. Aspirin 81 mg p.o. daily. 2. Carvedilol 12.5 mg p.o. q.12 hours. 3. Furosemide 40 mg p.o. b.i.d. 4. Hydralazine 25 mg p.o. t.i.d. 5. Insulin glargine 15 units subcutaneously b.i.d. 6. Isosorbide dinitrate 10 mg p.o. t.i.d. 7. Levothyroxine 50 mg p.o. daily. 8. Melatonin 5 mg p.o. at bedtime. 9. MiraLAX 17 g p.o. q.a.m. 10. Pravastatin 40 mg p.o. daily. 11. Quetiapine 400 mg p.o. at bedtime. 12. Vitamin B complex with vitamin C 1 tablet p.o. daily. 13. Vitamin D3 and vitamin K 2 tablets p.o. daily. 14. [*] 65 mg p.o. daily. 15. Potassium chloride 20 mEq p.o. b.i.d. 16. Spironolactone 12.5 mg p.o. daily. TIME SPENT: Time discharging this patient 35 minutes. cc: Raza Petty MD
== END 2018-05-25 14:43 | disposition home health service (06) | DRG 641 ==
LOC: SUPCPDRO → EDSEX → ED 17:00 → 3N 05-22 05:10 → SUATTDRO 05-22 05:10
PROVIDERS: ATTEND Internal Medicine
CPT/HCPCS: 80048; 80053; 80069; 81001; 82570; 82948; 83735; 84156; 84300; 85025; 87088; 93005; 94640; 94760; 96365; 96366; 96375; 99285; A9270; J1815; J1940; J7060; J7070; XXXXX

== ENCOUNTER 2018-08-01 19:34 | Inpatient (IN) ==
--- NOTE | 2018-08-01 20:03 | Diag Imaging Result Doc PS360 ---
EXAM: CT HEAD W/O CONTRAST HISTORY: POSS CVA TECHNIQUE: CT head without contrast COMPARISON: 02/13/2018 FINDINGS: No parenchymal hemorrhage. No epidural or subdural hematoma. No subarachnoid hemorrhage. Mild atrophy. No mass identified on this noncontrasted exam. No hydrocephalus. No sinus opacification. IMPRESSION: 1.No hemorrhage 2.Mild atrophy This exam was performed using automated exposure control, adjustment of mA or kV according to patient size, and/or use of iterative reconstruction technique. Electronically signed by Lai Marquez 08/01/2018 8:00 PM
--- NOTE | 2018-08-01 20:32 | Diag Imaging Result Doc PS360 ---
EXAM: CHEST-PORTABLE HISTORY: stroke like symptoms TECHNIQUE: Portable chest single view COMPARISON: 07/05/2018 FINDINGS: The lungs are well expanded. The heart is enlarged. There is a left-sided pacemaker. The vessels are distended. There are no infiltrates. No effusion identified. IMPRESSION: Mild cardiomegaly with mild pulmonary edema. Electronically signed by Lai Marquez 08/01/2018 8:29 PM
[2018-08-01 22:04] LABS: BASO# 0.01 X1000 (0.0-0.2); BASO% 0.1 % (0.0-0.8); EOS# 0.25 X1000 (0.0-0.7); EOS% 2.9 % (0.0-10.0); HEMOGLOBIN 12.8 g/dL (12.0-16.0); IMM GRAN# 0.02 X1000 (0.0-0.04); IMM GRAN% 0.2 % (0.0-0.5); LYMPH# 1.92 X1000 (1.2-3.4); LYMPH% 22.3 % (20.5-51.1); MCH 29.9 PG (27-31); MCHC 34.6 g/dL (33-37); MCV 86.4 FL (81-99); MONO# 1.07 X1000 (0.11-0.59); MONO% 12.4 % (1.7-9.3); MPV 11.5 FL (7.4-10.4); NEUT# 5.33 X1000 (1.4-6.5); NEUT% 62.1 % (42.2-75.2); PLT 203 X1000 (130-400); RBC 4.28 XMIL (4.2-5.4); RDW 14.6 % (11.5-14.5)
[2018-08-01 22:16] LABS: INR 0.9; PROTIME 12.8 Seconds (11.0-16.0)
[2018-08-01 22:17] LABS: PTT 25.8 Seconds (22.3-41.8)
[2018-08-01 22:22] LABS: ALB/GLOB RATIO 1.4; ALBUMIN 4.5 g/dL (3.5-5.0); CALCIUM 9.7 mg/dL (8.8-10.2); CREATININE 1.4 mg/dL (0.5-0.9); POTASSIUM 4.2 mmol/L (3.5-5.1); TOTAL BILIRUBIN 0.38 mg/dL (0.20-1.00); TOTAL PROTEIN 7.8 g/dL (6.3-8.3)
--- NOTE | 2018-08-02 02:27 | PROVIDER DOCUMENTATION ---
This chart was entered by Yamilet Layton Scribe, acting as scribe for Trudy Rabago MD. HPI-Neurological Disorder - General Chief Complaint: Stroke-Like Symptoms Stated Complaint: poss cva Time Seen by Provider: 08/01/18 20:06 Source: patient Allergies/Adverse Reactions: Patient Allergies Allergy/AdvReac Type Severity Reaction Status Date / Time bee venom protein (honey bee) Allergy Unknown Unknown Verified 05/22/18 00:54 cephalexin monohydrate * Allergy Unknown RASH Verified 05/22/18 00:54 [From Keflex] Penicillins Allergy Unknown ITCHING Verified 05/22/18 00:54 cephalexin [From Keflex] Allergy ITCHING Verified 05/22/18 00:54 Home Medications: Home Medication List Medication Instructions Recorded Confirmed Last Taken Type Carvedilol [Coreg] 12.5 mg PO Q12HR@0700,1900 #60 05/25/16 08/02/18 Unknown Rx tablet Furosemide [Lasix] 40 mg PO BID 02/08/18 08/02/18 05/21/18 History PRAVAstatin [Pravachol] 40 mg PO DAILY 02/08/18 08/02/18 05/21/18 History Levothyroxine [Synthroid] 50 microgm PO DAILY@0700 tablet 03/24/18 08/02/18 05/21/18 Rx Quetiapine Fumarate [Seroquel] 400 mg PO QHS 04/07/18 08/02/18 Unknown History Hydralazine [Apresoline] 25 mg PO TID #90 tab 04/19/18 08/02/18 05/21/18 Rx Isosorbide Dinitrate [Isordil] 10 mg PO TID #90 tab 04/19/18 08/02/18 05/21/18 Rx Insulin Glargine [Basaglar] 15 unit SUBQ BID #1 insuln.pen 05/25/18 08/02/18 Unknown Rx Potassium Chloride E.r. [Klor-Con] 20 meq PO BID #60 tab 05/25/18 08/02/18 05/21/18 Rx - History of Present Illness-Neuro Nature of Presenting Problem: 72 yof c/o pt arrived via ems for stroke like symptoms. pt called 911 after having slurred speech and rt sided weakness around 1830. pt sts she had been fine all day prior. pt has hx of stroke x 2. pt denies seizure, loc and numbness. Review of Systems - Adult - REVIEW OF SYSTEMS - ADULT Constitutional: reports: no symptoms reported. denies: fever, fatique, night sweats Eyes: reports: no symptoms reported. denies: blurred vision, double vision, eye pain Ears, Nose, Mouth & Throat: reports: no symptoms reported. denies: ear pain, sinus problem, throat pain Cardiovascular: reports: no symptoms reported. denies: chest pain, edema, heart murmur Respiratory: reports: no symptoms reported. denies: pleurisy, shortness of breath, wheezing Gastrointestinal: reports: no symptoms reported Genitourinary: reports: no symptoms reported Musculoskeletal: reports: no symptoms reported. denies: bone pain, back pain, muscle weakness Integumentary: reports: no symptoms reported Neurological: reports: see HPI, slurred speech, other (rt sided weakness). denies: dizziness/vertigo, headache/migraines, loss of balance, seizure, syncope Psychiatric: reports: no symptoms reported Endocrine: reports: no symptoms reported Hematologic/Lymphatic: reports: no symptoms reported Allergic/Immunologic: reports: no symptoms reported All Other Systems: Reviewed and Negative Past History - Adult - PAST MEDICAL HISTORY-ADULT Review of Records: reports: Old Records Reviewed, Nursing Assessment Review, Medications Reviewed, Social history reviewed & non-contributory. Major Childhood Illnesses: reports: denies history Cardiovascular: reports: CHF, HTN, hyperlipidemia, pacemaker (defib) Respiratory: reports: asthma Gastrointestinal: reports: GERD Obstetrical/Gynecological: reports: other (breast cancer) Genitourinary: reports: kidney disease Musculoskeletal: reports: arthritis Neurological: reports: denies history Psychiatric: reports: schizophrenia Endocrine/Immune: reports: Diabetes, thyroid disorder Other Conditions: reports: denies history, cataract/glaucoma - PRIOR SURGERIES/PROCEDURES Surgical/Procedure History: reports: appendectomy, pacemaker (/defib), BTL, joint replacement (hip), other (cataract removal) - IMMUNIZATION STATUS Childhood Immunizations: See Nurse Assessment Flu Vaccine: See Nurse Assessment - FAMILY HISTORY Family History: reviewed, not pertinent - SOCIAL HISTORY Smoking: cigarettes, other (former) Substance Use: none/never Physical Exam- Neurological - Physical Exam-Neuro Initial Vital Signs Reviewed: Yes General Appearance: appears well, alert, no apparent distress. negative: cachetic, lethargic, obtunded Eye Exam: bilateral eye: normal inspection, PERRL, EOMI HENMT: normocephalic/atraumatic, moist mucous membranes, normal ENT inspection Head Injury: no evidence of injury. 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 negative: normal speech (can understand but slurred and very broken), abnormal eye position, abnormal gag reflex, abnormal pupil position, facial asymmetry, facial droop, facial paresthesias, facial weakness, gaze palsy Coordination/Gait: negative: normal gait, abnormal gait Motor/Sensory: no sensory deficit, no pronator drift, weak motor strength RUE (rt hand). negative: no motor deficit Neurologic: grossly normal, no motor/sensory deficits, motor weakness (rue specifically rt hand cannot squeeze dr. jonatan berkowitz.). negative: aphasia, EOM palsy, facial droop, focal weakness, sensory deficit, negative romberg's sign, positive romberg's sign Integumentary: normal color, normal turgor, warm/dry Psych/Mental Status: normal mood/affect, normal thought content, normal thought process, oriented x 3 - Glascow Coma Scale Best Eye Response: (4) open spontaneously Best Motor Response: (6) obeys commands Progress - PLAN OF CARE/RESULTS Progress/Plan/Lab Results: Vital Signs - 8 hr 08/01/18 19:55 08/01/18 19:57 08/01/18 20:01 Temperature 98.2 F Pulse Rate 99 H Respiratory Rate 20 Blood Pressure 136/75 145/82 135/85 O2 Sat by Pulse Oximetry 98 98 98 08/01/18 20:05 08/01/18 20:31 08/01/18 21:01 Temperature Pulse Rate Respiratory Rate Blood Pressure 138/80 139/80 143/80 O2 Sat by Pulse Oximetry 98 99 98 08/01/18 21:25 08/01/18 21:31 08/02/18 01:19 Temperature Pulse Rate 86 Respiratory Rate 18 Blood Pressure 110/88 146/82 146/82 O2 Sat by Pulse Oximetry 98 98 98 08/02/18 02:02 Temperature Pulse Rate Respiratory Rate Blood Pressure 158/92 O2 Sat by Pulse Oximetry 96 Laboratory Results - last 24 hr 08/01/18 08/01/18 08/01/18 21:52 21:52 21:52 WBC 8.60 RBC 4.28 Hgb 12.8 Hct 37.0 MCV 86.4 MCH 29.9 MCHC 34.6 RDW Std Deviation 14.6 H Plt Count 203 MPV 11.5 H Immature Gran % (Auto) 0.2 Neut % (Auto) 62.1 Lymph % (Auto) 22.3 [place] % (Auto) 12.4 H Eos % (Auto) 2.9 Baso % (Auto) 0.1 Immature Gran # (Auto) 0.02 Neut # (Auto) 5.33 Lymph # (Auto) 1.92 [place] # (Auto) 1.07 H Eos # (Auto) 0.25 Baso # (Auto) 0.01 PT 12.8 INR 0.90 PTT (Actin FS) 25.8 Sodium 132 L Potassium 4.2 Chloride 94 L Carbon Dioxide 26 Anion Gap 12 BUN 35 H Creatinine 1.4 H Estimated GFR/1.73 m2 45 BUN/Creatinine Ratio 25 Glucose 396 H POC Glucose Calculated Osmolality 289 Calcium 9.7 Total Bilirubin 0.38 AST 29 ALT 41 H Alkaline Phosphatase 143 H Troponin T Total Protein 7.8 Albumin 4.5 Globulin 3.3 Albumin/Globulin Ratio 1.4 08/01/18 08/01/18 21:52 23:23 WBC RBC Hgb Hct MCV MCH MCHC RDW Std Deviation Plt Count MPV Immature Gran % (Auto) Neut % (Auto) Lymph % (Auto) [place] % (Auto) Eos % (Auto) Baso % (Auto) Immature Gran # (Auto) Neut # (Auto) Lymph # (Auto) [place] # (Auto) Eos # (Auto) Baso # (Auto) PT INR PTT (Actin FS) Sodium Potassium Chloride Carbon Dioxide Anion Gap BUN Creatinine Estimated GFR/1.73 m2 BUN/Creatinine Ratio Glucose POC Glucose 322 H D Calculated Osmolality Calcium Total Bilirubin AST ALT Alkaline Phosphatase Troponin T 0.018 Total Protein Albumin Globulin Albumin/Globulin Ratio Orders Category Date Time Status Cardiac Monitoring DIRECTED Care 08/01/18 20:16 Active Finger Stick Blood Sugar (ED) DIRECTED Care 08/01/18 20:16 Active Misc. NRSG Communication Order DIRECTED Care 08/01/18 20:16 Active Oxygen Therapy- ED Nursing DIRECTED Care 08/01/18 20:16 Active Saline Loc NOW Care 08/01/18 20:16 Active CHEST-PORTABLE [RAD] Stat Exams 08/01/18 20:[address] HEAD W/O CONTRAST [CT] Stat Exams 08/01/18 19:30 Completed CTA [CT ANGIOGRAM HEAD/NECK] [CT] Stat Exams 08/01/18 20:29 Taken CBC WITH ELECTRONIC DIFF [HEME] Stat Lab 08/01/18 21:52 Completed COMPREHENSIVE METABOLIC PANEL [CHEM] Stat Lab 08/01/18 21:52 Completed PROTIME WITH INR [COAG] Stat Lab 08/01/18 21:52 Completed PTT [COAG] Stat Lab 08/01/18 21:52 Completed TROPONIN T Stat Lab 08/01/18 21:52 Completed URINALYSIS W/POSS RFLX CULT [URINALYSIS] Stat Lab 08/01/18 20:16 Uncollected EKG [EKG] Stat Ther 08/01/18 20:16 Ordered Transfer/Admit Order [TRANSFER] Routine Transfer 08/02/18 02:00 Ordered Result Diagrams: 08/01/18 21:52 08/01/18 21:52 - CT/MRI 1 CT Study: Head ( EXAM: CT HEAD W/O CONTRAST HISTORY: POSS CVA TECHNIQUE: CT head without contrast COMPARISON: 02/13/2018 FINDINGS: No parenchymal hemorrhage. No epidural or subdural hematoma. No subarachnoid hemorrhage. Mild atrophy. No mass identified on this noncontrasted exam. No hydrocephalus. No sinus opacification. IMPRESSION: 1.No hemorrhage 2.Mild atrophy This exam was performed using automated exposure control, adjustment of mA or kV according to patient size, and/or use of iterative reconstruction technique. Electronically signed by Lai Marquez 08/01/2018 8:00 PM) Impression: Need Further Study - CONSULTS/PCP/HOSPITALIST Notification #1 *Consult/PCP/Hospitalist*: [facility] Time Discussed: 20:20 Reason/Comments: discuss pt Consult Disposition: other (continue to monitor pt.) #2 Consult: Dr. Sullivan Time Discussed: 20:27 Reason/Comments: Dr. Sullivan sts stroke scale score on pt is 4 but wants CTA of head & neck Consult Disposition: other #3 Consult: Dr PRATT Consult Disposition: Admit (AGREED ADMIT FOR CVA WORK UP) Departure - Departure Date of Disposition Decision: 08/02/18 Time of Disposition Decision: 02:25 DIAGNOSIS: CVA (cerebral vascular accident) Disposition: ADMITTED INPATIENT 09 Certified Medical Emergency: Emergent Condition: Good Referrals and Follow-Ups: None,PCP [Primary Care Provider] - - Critical Care Note This patient required my direct & personal management of CC.: Yes Total Time (mins): 31 Critical Care Statement: This patient required my direct personal management to treat or rule out processes, the absence of which, could potentiallly result in sudden, clinically significant life or limb threatening deterioration. Attestation - Physician/ RAMÓN Attestation Patient care was provided by Advanced Practice Provider:: No The physician spent face to face time with patient:: Yes Advanced Practice Provider documentation review:: Supervising physician onsite and consulted in the evaluation and care of this patient. The physician did have a face to face encounter with the patient. - NIH Stroke Scale Level of Consciousness: 0-Alert LOC Questions (ask month and age): 0-Answers Both Correctly LOC Commands (ask to open & close eyes;make a fist, let go): 0-Obeys Both Correctly Best Gaze (horizontal eye movement): 0-Normal Visual (use finger movement, counting or visual threat): 0-No Visual Loss Facial Palsy (show teeth or raise eyebrows & close eyes tght: 0-Symmetrical Movement Motor Function-left arm: 0-Normal Motor Function-right arm: 1-Drift Motor Function-left le-Normal Motor Function-right le-Normal Limb Ataxia([id number]-[id number], or heel to valdez): 0-No Ataxia Sensory(pin prick to face,arms,trunk,legs-compare side/side): 0-No Ataxia Best Language(name item/read sentence.Ex-Down to Earth): 1-Mild to Moderate Aphasia Dysarthria(Pt read words or say words Ex.Mama,Tip-Top,Thanks: 1-Mild-Mod Slurring Words Extinction and Inattention: 0-Normal NIH Total Score: 3 Modified Mcdonald Score Criteria: 2-slight disability This chart was documented by the indicated scribe, (Yamilet Layton Scribe) and accurately reflects the services I performed and decisions made by , Trudy Rabago MD, as attested by the provider's signature.
--- NOTE | 2018-08-02 04:44 | HISTORY AND PHYSICAL ---
PRIMARY CARE PHYSICIAN: None. CHIEF COMPLAINT: Slurred speech. HISTORY OF PRESENTING ILLNESS: The patient is a 72-year-old female with a history of hypertension, diabetes mellitus type 2, hyperlipidemia, congestive heart failure and bipolar disorder who had presented to the emergency department with a 1-day history of having slurred speech. She states that it started about 5:30 or so and it seemed to worsen. She was brought to the emergency department, stroke neurologist has evaluated patient and deemed that she was not a tPA candidate. Due to her presenting symptoms however she will require admission for further management. At the time of my examination she had denied any headache, fever, chills, chest pain, shortness of breath or any weight changes. She did complain of slurred speech. PAST MEDICAL HISTORY: Includes hypertension, diabetes mellitus type 2, hyperlipidemia, CHF, chronic kidney disease, hypothyroidism, breast cancer, bipolar disorder. PAST SURGICAL HISTORY: Bilateral mastectomy, pacemaker defibrillator, appendectomy. ALLERGIES: Keflex and penicillin. CURRENT MEDICATIONS: Include Coreg 12.5 mg p.o. b.i.d., Lasix 40 mg p.o. b.i.d., Hydralazine 25 mg p.o. t.i.d., insulin glargine 50 mg subcutaneous b.i.d., isosorbide dinitrate 10 mg p.o. SOCIAL HISTORY: No history of smoking, alcohol or illicit drug use. FAMILY HISTORY: No history of coronary disease. REVIEW OF SYSTEMS: Fourteen point review of systems is as in the HPI. Other systems negative. PHYSICAL EXAMINATION: GENERAL: A cooperative friendly female. She is resting comfortably now. VITAL SIGNS: Temperature 98.2 degrees, pulse 99, respirations 20, blood pressure 145/82, oxygen saturation 98%. HEENT: Atraumatic and normocephalic. Extraocular movements intact. PERRLA. NECK: No masses. CHEST: Clear to auscultation. CARDIOVASCULAR: Regular rate and rhythm. ABDOMEN: Soft. Positive bowel sounds. EXTREMITIES: No edema. NEUROLOGIC: She is awake, alert and oriented x3. Speech is somewhat slurred. Strength is 4/5 right upper and lower extremities. GENITOURINARY: No bladder distention. SKIN: Warm. LABORATORIES AND STUDIES: WBC is 8.60, hemoglobin 12.8, hematocrit 37.0, platelets 203,000. Sodium 132, potassium 4.2, chloride 94, CO2 is 26, BUN is 35, creatinine is 1.4, glucose is 396. ASSESSMENT: The patient is a 72-year-old female with a history of hypertension, diabetes mellitus type 2, congestive heart failure and hypothyroidism, who had presented to the emergency department with a 1-day history of having slurred speech. She was evaluated by a stroke neurologist in [place] who deemed that she is not a tPA candidate; however, she will require admission for further management. 1. Suspected cerebrovascular accident versus other etiology. 2. Hypertension. 3. Diabetes mellitus type 2. 4. Hyperlipidemia. 5. Bipolar disorder. PLAN: 1. We will admit the patient to the medical floor with telemetry. 2. Continue with stroke workup. 3. We will consult Neurology. 4. Monitor blood pressure closely. 5. Monitor blood glucose and put the patient on sliding scale insulin regimen. 6. Continue with gentle hydration. 7. Start other home medications. 8. Put the patient on DVT prophylaxis with SCDs. 9. We will continue to follow, reassess and make further recommendation based on the patient's clinical course. cc: Sami Abbasi MD MTD
[2018-08-02] MEDS ORDERED: NS 1,000 ML IV PRN (05:39)
[2018-08-02 05:54] LABS: URINE SOURCE CLEAN CATCH
[2018-08-02 06:46] LABS: BILIRUBIN URINE NEGATIVE (NEGATIVE); BLOOD URINE NEGATIVE (NEGATIVE); COLOR STRAW; GLUCOSE URINE 200 mg/dL (NEGATIVE); KETONE URINE NEGATIVE (NEGATIVE); LEUKOCYTES URINE NEGATIVE (NEGATIVE); NITRITE URINE NEGATIVE (NEGATIVE); PROTEIN URINE NEGATIVE (NEGATIVE); SP GRAVITY URINE 1.029; TURBIDITY URINE CLEAR (CLEAR); UROBILINOGEN URINE NORMAL (NORMAL)
[2018-08-02 06:48] LABS: UR EPITHELIAL CELLS <10 /HPF (<10); URINE BACTERIA NEGATIVE /HPF; URINE RBC <10 /HPF (<10); URINE WBC <10 /HPF (<10)
[2018-08-02] MEDS: HUMULIN R SUBQ SCH ×4 (06:55→22:07)
--- NOTE | 2018-08-02 07:12 | Diag Imaging Result Doc PS360 ---
EXAM: CT ANGIOGRAM HEAD/NECK 08/01/2018 HISTORY: CVA TECHNIQUE: This exam was performed using automated exposure control, adjustment of mA or kV according to patient size, and/or use of iterative reconstruction technique. COMMENT: 3-D MIPS were performed. Both P1 segments appear somewhat hypoplastic with the principal supply of the posterior cerebral arteries coming from the posterior communicating arteries. Both anterior cerebral arteries and middle cerebral arteries are patent. There is some dense calcification in the internal carotid siphon on the left which obscures the MIPS in this region. Both internal carotid arteries apparently are patent; however the origin of the common carotid artery on the left is somewhat obscured. Otherwise both common carotid arteries are patent as is the right brachiocephalic artery. No definite abnormalities are demonstrated in the visualized portion of the thoracic aorta. There is a pacemaker on the left. There are no definite abnormalities in the lung apices. Compared to the previous noncontrast study of this date, there has been no appreciable change in the brain parenchyma. IMPRESSION: Calcification in the intracranial internal carotid artery on the left, otherwise no evidence of significant vascular abnormality. Electronically signed by Cresencio Burger 08/02/2018 7:09 AM
[2018-08-02] MEDS ORDERED: ASPIRIN PR ONE (09:38)
[2018-08-02 10:49] LABS: CALCIUM 9.6 mg/dL (8.8-10.2); CREATININE 1.2 mg/dL (0.5-0.9); POTASSIUM 4.1 mmol/L (3.5-5.1)
[2018-08-02 11:13] LABS: CK INDEX 2.1 (0.0-2.5); CK-MB 3.86 ng/mL (0.0-5.0)
[2018-08-02] MEDS ORDERED: ZYRTEC PO ONE (13:32)
--- NOTE | 2018-08-02 14:38 | EKG Report ---
Test Performed on : 08/02/2018 1:50:37 PM Test Reason : tachycardia Blood Pressure : / mmHG Vent. Rate : 095 BPM Atrial Rate : 095 BPM P-R Int : 156 ms QRS Dur : 142 ms QT Int : 404 ms P-R-T Axes : 067 -81 072 degrees QTc Int : 507 ms Atrial-sensed ventricular-paced rhythm Abnormal ECG When compared with ECG of 21-MAY-2018 17:07, Vent. rate has increased BY 3 BPM Confirmed by Colton BRANCH, Salazar Duncan ([id number]) on 08/03/2018 10:20:14 AM
--- NOTE | 2018-08-02 16:36 | ECHO REPORT ---
ORDER DATE: 08/02/2018 INDICATION FOR STUDY: CHF, TIA. FINDINGS: 1. The right atrium appears normal in size at 2.5 cm. Linear echodensity consistent with device lead is seen in the right heart chambers. 2. Mild tricuspid regurgitation. RV systolic pressure of 78 suggesting pulmonary hypertension. 3. Difficult visualization of the right ventricle. Suggestion of mild reduction in RV systolic function. 4. Trace pulmonic insufficiency. 5. Moderate left atrial enlargement with a volume index of 37. 6. No mitral valve prolapse. Suggestion of severe mitral regurgitation. 7. Normal LV size, end-diastolic dimension of 5.2. Normal wall thicknesses with a posterior and interventricular septal thickness of 0.9 and 0.8 cm respectively. Severe reduction in LV systolic function with an estimated EF of 25%. There is hypokinesis to akinesis of the apex as well as the inferior and inferior lateral lou. 8. Aortic valve opens well. There is mild insufficiency. No evidence of stenosis. 9. Aorta appears normal in visualized segments. 10. There is no evidence of pericardial effusion on this study. cc: MD Kaylin Brenner MD
[2018-08-02] MEDS: ISORDIL PO SCH (16:43)
[2018-08-02] MEDS: NASONEX NASAL SPRAY NAS SCH (16:44)
--- NOTE | 2018-08-02 19:51 | CONSULTATION ---
DATE OF CONSULTATION: 08/02/2018 HISTORY OF PRESENT ILLNESS: Ms. Collazo is 72 years old, and she had a recent episode with question of stroke or other neurologic event. History from the patient is that she was feeling very stressed. She noted some apparent involuntary movement in the right arm and difficulty speaking. She could understand what was said to her, but could not make words. She could make noise, but not words. There was no vision disturbance, right leg weakness, gait difficulty, headache, altered awareness or memory gap. Episode resolved in about 20 minutes, by her report to me today. She reports a very similar episode occurring 3 months ago and that resolved in a similar time frame. She came to the hospital then. She has had a few other minor episodes, which did not prompt her to seek medical attention. Past history is remarkable for hypertension, heart failure, dyslipidemia, diabetes mellitus type 2, bipolar disorder or schizoaffective disorder. Workup here includes noncontrast CT of the head reported unremarkable. CT angiogram of the head and neck were unremarkable. Lab showed sodium 132, initial blood sugar 396, later 201. BUN was 35. She has been afebrile. Heart rate has ranged 80s to 110s. Systolic blood pressures have ranged 110s to 150s. Computer record shows she was admitted with blood sugar in the 70s, slurred speech and features resolved with conservative management a few months ago. PHYSICAL EXAMINATION: On exam now, she is awake, alert, attentive. Speech is not dysarthric. Language function is intact on careful bedside testing. Recent and remote memory are good. Head and neck are unremarkable. There is no meningismus. Visual jimenez are full tested grossly by confrontational finger counting. Extraocular movements are full. Facial motility is normal and symmetric. Facial sensation is intact to light touch testing. Gag is intact. Tongue is midline. She can hear. Shoulder shrug is equal on the right and left. Strength is normal in the arms and legs. She did well on [id number] testing bilaterally. Limb tone is symmetric. Gait is normal. Sensation is grossly intact to finger rub over the limbs. IMPRESSION: Transient right arm movement open (as she demonstrated this, features are not typical of clonic activity, dystonic or dyskinetic movement, asterixis or tremor). I told her we would be concerned, in light of her age and risk factors, that she might have stroke and that there might also be concern for seizure with involuntary movement involving 1 limb. She told me she is certain this was related to the stress she experienced, and she is certain nothing further needs to be done. We discussed workup with MRI but that may not be an option because of cardiac device. We might consider EEG later if she is willing to have further workup. I encouraged her to take her medicines as directed, to be careful with activities and to keep followup with her primary clinic. I will be glad to see her again, if needed. Thanks for asking Neurology to see Ms. Collazo. cc: MD KATIE Segovia III
[2018-08-02] MEDS: SEROQUEL PO SCH (21:20)
[2018-08-02] MEDS: PRAVACHOL PO SCH (21:20)
[2018-08-02] MEDS: COREG PO SCH (21:20)
[2018-08-02] MEDS: LANTUS INSULIN SUBQ SCH (21:22)
[2018-08-03] MEDS: SYNTHROID PO SCH (06:20)
[2018-08-03] MEDS: COREG PO SCH ×2 (06:20→18:59)
[2018-08-03] MEDS: HUMULIN R SUBQ SCH ×4 (06:21→20:47)
[2018-08-03] MEDS: ISORDIL PO SCH ×3 (10:04→20:48)
[2018-08-03] MEDS: ZYRTEC PO SCH (10:04)
[2018-08-03] MEDS: ASPIRIN EC PO SCH (10:04)
[2018-08-03] MEDS: NASONEX NASAL SPRAY NAS SCH (10:06)
[2018-08-03] MEDS: LANTUS INSULIN SUBQ SCH ×2 (10:06→20:47)
[2018-08-03] MEDS: LASIX PO SCH ×2 (14:07→20:48)
--- NOTE | 2018-08-03 15:19 | Diag Imaging Result Doc PS360 ---
EXAM: CHEST-PORTABLE 08/03/2018 HISTORY: pulmonary edema TECHNIQUE: AP portable at 1500 COMMENT: There is cardiomegaly and increased pulmonary vascularity. The lungs are slightly clearer in appearance with decreased interstitial markings compared to 08/01/2018. IMPRESSION: Improved pulmonary edema. Electronically signed by Cresencio Burger 08/03/2018 3:17 PM
--- NOTE | 2018-08-03 18:15 | PROGRESS NOTE ---
DATE: 08/03/2018 SUBJECTIVE: Overnight and early this morning the patient was noted to be having delusions and hallucinations about people that were not in the room, as reported by the patient sister and the nursing staff. OBJECTIVE: Vital Signs: Temperature 98.9 degrees, blood pressure 131/72, heart rate 94, respirations 22, O2 saturation is 100% on room air. General: This is an elderly female, sitting at the edge of the bed, in no acute distress. Heart: S1, S2 normal. Lungs: Clear to auscultation bilaterally. Abdomen: Positive bowel sounds. Soft, nontender, nondistended. Extremities: No edema. No cyanosis. Neurologic: The patient is alert and oriented x4. LABS: None. ASSESSMENT AND PLAN: 1. Schizoaffective disorder with bipolar disorder. The patient has been having multiple episodes of delusions and hallucinations as reported by the nursing staff and family. The patient is currently on Seroquel. The patient's family is requesting possible inpatient psychiatric placement for the patient to optimize her medications. We will consult with [facility] to arrange for this. 2. Chronic systolic congestive heart failure. Stable. Continue on the current cardiac regimen. 3. Transient ischemic attack. Continue on aspirin and Pravachol. 4. Diabetes mellitus type 2. Continue on glargine and sliding scale insulin. 5. Hypothyroidism. Continue on Synthroid. 6. History of breast cancer, status post bilateral mastectomy. Aware. 7. Chronic kidney disease. Stable. 8. Deep vein thrombosis prophylaxis. Will start the patient on heparin. cc: Kaylin Kellogg MD
[2018-08-03] MEDS: HEPARIN SUBQ SCH (20:47)
[2018-08-03] MEDS: SEROQUEL PO SCH (20:48)
[2018-08-03] MEDS: PRAVACHOL PO SCH (20:48)
[2018-08-04] MEDS: HUMULIN R SUBQ SCH ×3 (06:32→16:18)
[2018-08-04] MEDS: COREG PO SCH ×3 (06:32→18:46)
[2018-08-04] MEDS: SYNTHROID PO SCH ×2 (06:32→10:36)
[2018-08-04 08:01] LABS: CALCIUM 8.6 mg/dL (8.8-10.2); CREATININE 1.4 mg/dL (0.5-0.9); POTASSIUM 3.8 mmol/L (3.5-5.1)
[2018-08-04 09:45] LABS: HEMATOCRIT 34.7 % (37.0-47.0); HEMOGLOBIN 11.6 g/dL (12.0-16.0); MCH 30.5 PG (27-31); MCHC 33.4 g/dL (33-37); MCV 91.3 FL (81-99); MPV 11.9 FL (7.4-10.4); RBC 3.8 XMIL (4.2-5.4); RDW 15.2 % (11.5-14.5); WBC 7.01 X1000 (4.8-10.8)
[2018-08-04] MEDS: ASPIRIN EC PO SCH (10:35)
[2018-08-04] MEDS: ISORDIL PO SCH ×2 (10:35→13:17)
[2018-08-04] MEDS: LANTUS INSULIN SUBQ SCH (10:36)
[2018-08-04] MEDS: HEPARIN SUBQ SCH (10:36)
[2018-08-04] MEDS: ZYRTEC PO SCH (10:36)
[2018-08-04] MEDS: LASIX PO SCH (10:36)
[2018-08-04] MEDS: NASONEX NASAL SPRAY NAS SCH (10:39)
--- NOTE | 2018-08-04 12:49 | PROGRESS NOTE ---
DATE: 08/04/2018 SUBJECTIVE: The patient is sitting up in bed eating breakfast. She states that she feels fine. She does admit that she does have visual and auditory hallucinations. OBJECTIVE: Vital Signs: Temperature 97.4 degrees, blood pressure 126/77, heart rate 99, respirations 18, O2 saturation is 100% on room air. General: This is an overweight female, sitting on the edge of the bed in no acute distress. Heart: S1, S2 normal. Regular rate and rhythm. Lungs: Equal air entry bilaterally. No crackles. No rales. Abdomen: Positive bowel sounds. Soft, nontender, nondistended. Extremities: Trace pedal edema. Neurologic: The patient is alert and oriented x3. LABORATORY DATA: White blood cell count 7, hemoglobin 11, hematocrit 34, platelets 177,000. Sodium 139, potassium 3.8, chloride 102, CO2 26, BUN 23, creatinine 1.4, glucose 102. ASSESSMENT AND PLAN: 1. Schizoaffective disorder. The patient has been having visual and auditory hallucinations. She keeps thinking that her ex- is present in the room and will talk to the TV and expect a response. This has been witnessed by the family and nursing staff. The patient is currently on Seroquel. I spoke with , the patient's outpatient psychiatrist and he recommended transfer to [facility] for adjustment of the patient's psychiatric medications. Will consult [facility]. 2. Chronic systolic congestive heart failure. Stable. 3. Transient ischemic attack. Continue on aspirin and Pravachol. 4. Hypothyroidism. Continue on Synthroid. 5. Diabetes mellitus type 2. Continue on glargine and sliding scale insulin. 6. History of breast cancer status post bilateral mastectomy. Aware. 7. Chronic kidney disease. Stable. 8. Deep vein thrombosis prophylaxis. Continue on heparin. Disposition: The patient is medically stable for discharge for inpatient psychiatric treatment. cc: Kaylin Kellogg MD [facility]
[2018-08-04 14:30] LABS: UR AMPHETAMINES QUAL NONE DETECTED (NONE DETECT); UR BARBITUATES QUAL NONE DETECTED (NONE DETECT); UR BENZODIAZEPIN QUAL NONE DETECTED (NONE DETECT); UR CANNABINOIDS QUAL NONE DETECTED (NONE DETECT); UR COCAINE QUAL NONE DETECTED (NONE DETECT); UR METHADONE QUAL NONE DETECTED (NONE DETECT); UR OPIATES QUAL NONE DETECTED (NONE DETECT); UR OXYCODONE QUAL NONE DETECTED (NONE DETECT); UR PCP QUAL NONE DETECTED (NONE DETECT)
[2018-08-04 16:05] VITALS: BP 111/65
--- NOTE | 2018-08-05 06:37 | Carotid Study ---
DATE: 08/02/2018 PROCEDURE: Bilateral duplex and color flow imaging of the carotid arteries performed using the SplitGigsid E9 ultrasound system with a 9LD transducer. REFERRING PHYSICIAN: Dr. Kellogg, inpatient. INTERPRETING PHYSICIAN: Dr. Agata Limon. TECH: Tasha Silva RVT. INDICATIONS: Carotid stenosis. OBSERVED DATA RIGHT LEFT Brachial Blood Pressure Carotid Pulse Bruits: Carotid/Sub DIAGRAM OF ULTRASOUND IMAGING R L RIGHT INT EXT INT EXT LEFT Rafael (cm/s) Rafael (cm/s) Subclavian 56/0 Subclavian 96/1 CCA Proximal 54/12 CCA Proximal 77/19 CCA Distal 51/9 CCA Distal 67/10 Bulb 47/15 Bulb 48/12 ICA Proximal 60/18 ICA Proximal 35/9 ICA Mid 83/32 ICA Mid 54/17 ICA Distal 50/21 ICA Distal 79/30 ECA 55/17 ECA 51/6 Vertebral Forward flow 50/16 Vertebral Forward flow 52/11 ICA/CCA Ratio 1.52 ICA/CCA Ratio 1.03 % Stenosis 0-39% % Stenosis 0-39% PHYSICIAN INTERPRETATION: Mild atherosclerotic disease of the distal common and internal carotid arteries bilaterally without evidence of a hemodynamically significant lesion in either carotid system. cc: MD Kaylin Atkins MD
--- NOTE | 2018-08-27 19:44 | DISCHARGE SUMMARY ---
ADMISSION DATE: 08/02/2018 DISCHARGE DATE: 08/04/2018 PRIMARY CARE PHYSICIAN: The patient's primary care physician is Dr. Krystal Jeffers. PSYCHIATRIST: The patient is psychiatrist is Dr. Hughes. FINAL DISCHARGE DIAGNOSES: 1. Schizoaffective disorder. 2. Bipolar disorder. 3. Chronic systolic congestive heart failure. 4. History of a transient ischemic attack. 5. Diabetes mellitus type 2. 6. Hypothyroidism. 7. History of breast cancer status post bilateral mastectomy. 8. Chronic kidney disease. HOSPITAL COURSE: Miss Collazo is a 72-year-old female with a history of schizoaffective disorder and chronic systolic CHF who presented to the ER with stroke-like symptoms. On admission a CT of the head and neck was done that revealed calcification in the intracranial internal carotid artery on the left, but no significant vascular abnormality. The patient was admitted to the hospitalist service and Neurology was consulted as well. A carotid duplex study was done that was unremarkable as well as an echocardiogram that revealed an ejection fraction of 25%. Over the course of the hospitalization, the patient was noted to be having visual and auditory hallucinations. This was discussed with the patient and she stated that she was started on a new medication, but stopped it because she was concerned about side effects. After discussion with the patient's family, they also stated that the patient had been having auditory and visual hallucinations at home. The case was discussed with Dr. Hughes, the patient's outpatient psychiatrist, who recommended inpatient admission for stabilization of the patient's psychiatric condition. This was discussed with the patient who initially declined inpatient admission. However, a consult was placed with [facility] and the patient was ultimately accepted to [facility] for inpatient psychiatric treatment. The patient agreed and the patient was discharged to [facility] on 08/04/2018. DISCHARGE MEDICATIONS: 1. Aspirin 325 mg oral daily. 2. Coreg 12.5 mg oral 12 hours. 3. Lasix 40 mg p.o. twice a day. 4. Hydralazine 25 mg oral 3 times a day. 5. Synthroid 50 mcg oral daily. 6. Isordil 10 mg p.o. 3 times a day. 7. Glargine 15 units subcutaneous twice a day. 8. Klor-Con 20 mEq oral twice a day. 9. Pravachol 40 mg p.o. daily. 10. Seroquel 600 mg oral at bedtime. DISCHARGE DIET: Low-sodium, 1800, ADA diet. ACTIVITY: As tolerated. FOLLOW-UP INSTRUCTIONS: The patient will need to follow up with Dr. Jackson upon discharge from [facility]. cc: Kaylin Kellogg MD
== END 2018-08-04 18:00 | DRG 69 ==
LOC: ED 19:34 → SUATTDRO 08-02 02:27 → 3N 08-02 02:27
PROVIDERS: ATTEND Internal Medicine
CPT/HCPCS: 70450; 70496; 70498; 71010; 71045; 80048; 80053; 80101; 80301; 80307; 80324; 80345; 80346; 80353; 80358; 80361; 80365; 81001; 82550; 82553; 82948; 83880; 83992; 84484; 85025; 85027; 85610; 85730; 93005; 93010; 93306; 93880; 97110; 97116; 97162; 97166; 97530; 99285; 99291; A9270; G0431; G0434; G0479; G0480; J1644; J1815; Q9967; XXXXX

== ENCOUNTER 2018-09-05 15:39 | Observation (INO) ==
--- NOTE | 2018-09-05 16:44 | EKG Report ---
Test Performed on : 09/05/2018 3:48:18 PM Test Reason : SOB Blood Pressure : / mmHG Vent. Rate : 095 BPM Atrial Rate : 095 BPM P-R Int : 150 ms QRS Dur : 136 ms QT Int : 394 ms P-R-T Axes : 037 -85 076 degrees QTc Int : 495 ms Atrial-sensed ventricular-paced rhythm Abnormal ECG When compared with ECG of 02-AUG-2018 13:50, No significant change was found Unconfirmed Result
[2018-09-05 17:17] LABS: BASO# 0.02 X1000 (0.0-0.2); BASO% 0.2 % (0.0-0.8); EOS# 0.09 X1000 (0.0-0.7); EOS% 0.7 % (0.0-10.0); HEMATOCRIT 26.5 % (37.0-47.0); HEMOGLOBIN 8.8 g/dL (12.0-16.0); IMM GRAN# 0.02 X1000 (0.0-0.04); IMM GRAN% 0.2 % (0.0-0.5); LYMPH# 1.43 X1000 (1.2-3.4); LYMPH% 11.1 % (20.5-51.1); MCH 29.2 PG (27-31); MCHC 33.2 g/dL (33-37); MONO# 1.62 X1000 (0.11-0.59); MONO% 12.6 % (1.7-9.3); MPV 10.6 FL (7.4-10.4); NEUT# 9.69 X1000 (1.4-6.5); NEUT% 75.2 % (42.2-75.2); PLT 258 X1000 (130-400); RBC 3.01 XMIL (4.2-5.4); RDW 15.3 % (11.5-14.5); WBC 12.87 X1000 (4.8-10.8)
[2018-09-05] MEDS ORDERED: LASIX IV ONE (17:35)
[2018-09-05 17:39] LABS: INR 1.05; PROTIME 14.5 Seconds (11.0-16.0)
[2018-09-05 17:40] LABS: PTT 29.6 Seconds (22.3-41.8)
--- NOTE | 2018-09-05 17:45 | Diag Imaging Result Doc PS360 ---
CHEST-2 VIEWS - 09/05/2018 INDICATION: chf, sob COMPARISON: 08/31/2018 FINDINGS: Stable biventricular pacemaker. Stable cardiomegaly. Stable hazy infiltrates or pulmonary edema diffusely and bilaterally. There is a new small infiltrate or effusion at the lateral right lung base. No significant left-sided effusion. IMPRESSION: Worsening small infiltrate or focal effusion at the lateral left lung base. Stable cardiomegaly and pulmonary edema. Electronically signed by Ki Juan 09/05/2018 5:43 PM
[2018-09-05 17:57] LABS: ALB/GLOB RATIO 0.8; ALBUMIN 3.1 g/dL (3.5-5.0); CALCIUM 8.8 mg/dL (8.8-10.2); CREATININE 1.5 mg/dL (0.5-0.9); POTASSIUM 5.6 mmol/L (3.5-5.1); TOTAL BILIRUBIN 0.49 mg/dL (0.20-1.00)
[2018-09-05] MEDS ORDERED: LEVAQUIN 500 MG/D5W 500 MG/100 ML IVPB IV ONE (20:19)
--- NOTE | 2018-09-05 20:22 | PROVIDER DOCUMENTATION ---
This chart was entered by Alicia Jerome Scribe, acting as scribe for Bria Bhardwaj MD. HPI-Respiratory General - General Chief Complaint: Shortness of Breath Stated Complaint: SOB,CHF Time Seen by Provider: 09/05/18 16:34 Source: patient Allergies/Adverse Reactions: Patient Allergies Allergy/AdvReac Type Severity Reaction Status Date / Time bee venom protein (honey bee) Allergy Unknown Unknown Verified 09/05/18 16:18 cephalexin monohydrate * Allergy Unknown RASH Verified 09/05/18 16:18 [From Keflex] Penicillins Allergy Unknown ITCHING Verified 09/05/18 16:18 cephalexin [From Keflex] Allergy ITCHING Verified 09/05/18 16:18 Home Medications: Home Medication List Medication Instructions Recorded Confirmed Last Taken Type PRAVAstatin [Pravachol] 40 mg PO DAILY 02/08/18 08/02/18 05/21/18 History Levothyroxine [Synthroid] 50 microgm PO DAILY@0700 tablet 03/24/18 08/02/18 05/21/18 Rx Hydralazine [Apresoline] 25 mg PO TID #90 tab 04/19/18 08/04/18 08/04/18 07:00 Rx 25mg Isosorbide Dinitrate [Isordil] 10 mg PO TID #90 tab 04/19/18 08/02/18 05/21/18 Rx Insulin Glargine [Basaglar] 15 unit SUBQ BID #1 insuln.pen 05/25/18 08/02/18 Unknown Rx Potassium Chloride E.r. [Klor-Con] 20 meq PO BID #60 tab 05/25/18 08/02/18 05/21/18 Rx Aspirin EC 325 mg PO DAILY #30 tab 08/03/18 Unknown Rx Carvedilol [Coreg] 12.5 mg PO Q12HR@0700,1900 #60 tab 08/03/18 08/04/18 08/04/18 07:00 Rx 12.5mg Nitroglycerin [Nitrostat] 0.4 mg SUBLINGUAL Q5M #120 tab.subl 08/03/18 Unknown Rx Furosemide [Lasix] 40 mg PO BID 08/04/18 08/04/18 08/04/18 07:00 History 40mg Quetiapine [Seroquel] 600 mg PO QHS 30 Days #60 tab 08/08/18 Unknown Rx Benztropine [Cogentin] 1 mg PO BID 30 Days #60 tab 08/30/18 Unknown Rx Fluoxetine [Prozac] 20 mg PO QAM 30 Days #30 cap 08/30/18 Unknown Rx Haloperidol [Haldol] 5 mg PO BID 30 Days #60 tab 08/30/18 Unknown Rx Iron Carbonyl/Ascorbic Acid 1 ea PO DAILY 30 Days #30 tab 08/30/18 Unknown Rx [Icar-C] Paliperidone E.r. [Invega] 12 mg PO PCS 30 Days #120 tab 08/30/18 Unknown Rx Temazepam [Restoril] 15 mg PO QHS 30 Days #30 cap 08/30/18 Unknown Rx Insulin Glargine [Lantus Insulin] 20 unit SUBQ DAILY unit 09/02/18 Unknown Rx Insulin Human Regular [Humulin R] 0 unit SUBQ 0700,1100,1600,2100 ml 09/02/18 Unknown Rx - History of Present Illness-Resp Nature of Presenting Problem: 72yof presents to ED cc SOB, fluid around right eye, abdomen, and both lower legs and extreme fatigue especially with walking. Pt denies N/V/D/F. Pt has hx of CHF, COPD, DM and HTN. Quality of Pain: reports: tightness Severity in ED: reports: moderate Onset/Duration: reports: 2 days ago Timing: reports: still present, constant Cough Quality/Degree: reports: no cough Episode Frequency: frequent episodes Current Respiratory Medication Therapy: Initiated see nurses note Modifying Factors: worse with: exertion, deep breath, lying down Associated Symptoms: reports: shortness of breath Similar Symptoms Previously?: Yes Recently seen or treated by another doctor?: No Review of Systems - Adult - REVIEW OF SYSTEMS - ADULT Constitutional: reports: see HPI, fatique. denies: chills, fever Eyes: reports: see HPI, other (fluid around right eye) Ears, Nose, Mouth & Throat: reports: no symptoms reported Cardiovascular: reports: edema (both lower legs and abdomen) Respiratory: reports: see HPI, shortness of breath. denies: cough Gastrointestinal: reports: see HPI. denies: diarrhea, nausea, vomiting Genitourinary: reports: no symptoms reported Musculoskeletal: reports: no symptoms reported Integumentary: reports: no symptoms reported Neurological: reports: no symptoms reported Psychiatric: reports: no symptoms reported Endocrine: reports: no symptoms reported Hematologic/Lymphatic: reports: no symptoms reported Allergic/Immunologic: reports: no symptoms reported All Other Systems: Reviewed and Negative Past History - Adult - PAST MEDICAL HISTORY-ADULT Review of Records: reports: Nursing Assessment Review, Medications Reviewed, Social history reviewed & non-contributory. Major Childhood Illnesses: reports: denies history Cardiovascular: reports: CHF, HTN, hyperlipidemia, pacemaker (/defib) Respiratory: reports: denies history, asthma Gastrointestinal: reports: GERD Obstetrical/Gynecological: reports: denies history, other (breast cancer) Genitourinary: reports: denies history, kidney disease Musculoskeletal: reports: arthritis Neurological: reports: denies history Psychiatric: reports: schizophrenia Endocrine/Immune: reports: denies history, Diabetes, thyroid disorder Other Conditions: reports: denies history, cataract/glaucoma - PRIOR SURGERIES/PROCEDURES Surgical/Procedure History: reports: appendectomy, pacemaker (/defib), BTL, joint replacement (hip), other (cataract removal) - IMMUNIZATION STATUS Childhood Immunizations: See Nurse Assessment Flu Vaccine: See Nurse Assessment - FAMILY HISTORY Family History: reviewed, not pertinent - SOCIAL HISTORY Smoking: denies Physical Exam-General - PHYSICAL EXAM-ADULT Initial Vital Signs Reviewed: Yes - CONSTITUTIONAL General Appearance: alert, mild distress. negative: anxious, combative - EYES Eyes: PERRL/EOMI, pink conjunctivae. negative: photophobia - HEAD, EARS, NOSE, MOUTH & THROAT HENMT: moist mucous membranes, normal ENT inspection, angioedema (right) - NECK Neck: non-tender, full range of motion, supple, normal inspection. negative: Brudzinski's sign, carotid bruit, C-spine tenderness - RESPIRATORY Respiratory: chest non-tender, lungs clear, normal breath sounds, no pleuratic chest pain, no respiratory distress, no accessory muscle use. negative: crackles, rales, rhonchi, stridor, wheezing - CARDIOVASCULAR Cardiovascular: normal peripheral pulses, regular rate, rhythm, no edema, no gallop, no JVD, no murmur. negative: bradycardia, tachycardia - GASTROINTESTINAL (ABDOMEN) Abdominal Exam: normal bowel sounds, non tender, soft. negative: rigid, rebound, tenderness - LYMPHATIC Lymphatic: no adenopathy. negative: striations - MUSCULOSKELETAL Back Exam: normal inspection, no CVA tenderness, no vertebral tenderness. negative: swelling Extremity: pelvis stable, pedal edema (bilaterally), swelling (2+ pitting edema lower legs up to knee bilaterally). negative: deformity - SKIN Integumentary: swelling (2+ pitting edema lower legs up to knee bilaterally). negative: diaphoresis, jaundice, laceration(s) - NEUROLOGIC Neurologic: sex therapist II-XII nml as tested, grossly normal, no motor/sensory deficits. negative: facial droop, focal weakness - PSYCHIATRIC Psych/Mental Status: normal mood/affect, normal thought content, normal thought process, oriented x 3. negative: disoriented x 3, anxious, disheveled, depressed affect Progress - PLAN OF CARE/RESULTS Progress/Plan/Lab Results: Vital Signs - 8 hr 09/05/18 15:51 09/05/18 16:19 09/05/18 16:20 Temperature 99.0 F Pulse Rate 94 H Respiratory Rate 36 H Blood Pressure 130/83 129/85 O2 Sat by Pulse Oximetry 96 96 97 09/05/18 16:21 09/05/18 16:30 09/05/18 16:40 Temperature Pulse Rate 93 H Respiratory Rate 39 H Blood Pressure O2 Sat by Pulse Oximetry 97 97 97 09/05/18 16:50 09/05/18 17:12 09/05/18 17:20 Temperature Pulse Rate 96 H 106 H 96 H Respiratory Rate 36 H 22 25 H Blood Pressure O2 Sat by Pulse Oximetry 97 95 96 09/05/18 17:30 09/05/18 17:40 09/05/18 17:50 Temperature Pulse Rate 97 H 97 H 98 H Respiratory Rate 38 H 33 H 28 H Blood Pressure O2 Sat by Pulse Oximetry 96 96 98 09/05/18 18:00 Temperature Pulse Rate 97 H Respiratory Rate 31 H Blood Pressure O2 Sat by Pulse Oximetry 97 Laboratory Results - last 24 hr 09/05/18 09/05/18 09/05/18 16:54 16:54 16:54 WBC 12.87 H RBC 3.01 L Hgb 8.8 L Hct 26.5 L MCV 88.0 MCH 29.2 MCHC 33.2 RDW Std Deviation 15.3 H Plt Count 258 MPV 10.6 H Immature Gran % (Auto) 0.2 Neut % (Auto) 75.2 Lymph % (Auto) 11.1 L Hays % (Auto) 12.6 H Eos % (Auto) 0.7 Baso % (Auto) 0.2 Immature Gran # (Auto) 0.02 Neut # (Auto) 9.69 H Lymph # (Auto) 1.43 Hays # (Auto) 1.62 H Eos # (Auto) 0.09 Baso # (Auto) 0.02 PT INR PTT (Actin FS) Sodium 132 L Potassium 5.6 H Chloride 97 L Carbon Dioxide 19 L Anion Gap 16 BUN 32 H Creatinine 1.5 H Estimated GFR/1.73 m2 42 BUN/Creatinine Ratio 21 Glucose 73 Calculated Osmolality 270 Calcium 8.8 Total Bilirubin 0.49 AST 36 H ALT 72 H Alkaline Phosphatase 189 H Creatine Kinase 94 Troponin T Llt-W-Ijrthvpveeb Pept 8632 H Total Protein 7.0 Albumin 3.1 L Globulin 3.9 Albumin/Globulin Ratio 0.8 09/05/18 09/05/18 16:54 16:54 WBC RBC Hgb Hct MCV MCH MCHC RDW Std Deviation Plt Count MPV Immature Gran % (Auto) Neut % (Auto) Lymph % (Auto) Hays % (Auto) Eos % (Auto) Baso % (Auto) Immature Gran # (Auto) Neut # (Auto) Lymph # (Auto) Hays # (Auto) Eos # (Auto) Baso # (Auto) PT 14.5 INR 1.05 PTT (Actin FS) 29.6 Sodium Potassium Chloride Carbon Dioxide Anion Gap BUN Creatinine Estimated GFR/1.73 m2 BUN/Creatinine Ratio Glucose Calculated Osmolality Calcium Total Bilirubin AST ALT Alkaline Phosphatase Creatine Kinase Troponin T < 0.010 Xjj-E-Urwiryyicnl Pept Total Protein Albumin Globulin Albumin/Globulin Ratio Orders Category Date Time Status Cardiac Monitoring DIRECTED Care 09/05/18 16:40 Active Oxygen Therapy- ED Nursing DIRECTED Care 09/05/18 16:40 Active Saline Loc NOW Care 09/05/18 16:40 Active CHEST-2 VIEWS [RAD] Stat Exams 09/05/18 16:40 Completed CBC WITH ELECTRONIC DIFF [HEME] Stat Lab 09/05/18 16:54 Completed CK PROFILE [SP CHEM] Stat Lab 09/05/18 16:54 Completed COMPREHENSIVE METABOLIC PANEL [CHEM] Stat Lab 09/05/18 16:54 Completed PRO B-NATRIURETIC PEPTIDE Stat Lab 09/05/18 16:54 Completed PROTIME WITH INR [COAG] Stat Lab 09/05/18 16:54 Completed PTT [COAG] Stat Lab 09/05/18 16:54 Completed TROPONIN T Stat Lab 09/05/18 16:54 Completed Furosemide [Lasix] Med 09/05/18 17:35 Discontinued 60 mg IV NOW ONE Levaquin 500 mg/D5w IV Now Med 09/05/18 20:19 Ordered Levofloxacin 500 mg/D5w [Levaquin 500 mg/D5w] 500 mg in 100 ml IV NOW CP/SOB/Palp >45 yrs of Age Stat Oth 09/05/18 16:40 Ordered EKG [EKG] Stat Ther 09/05/18 16:40 Draft Result Diagrams: 09/05/18 16:54 09/05/18 16:54 - EKG 1 Time of EKG reading by physician:: 15:48 EKG Read and Signed by:: Edmund Maria EKG Interpretation (*Must complete 3 of following elements*): Abnormal Rate: 95 Rhythm: atrial sensed ventricular paced rhythm QRS: normal [place] Interval: normal - XRAY 1 XRAY: Bilateral XRAY Study: Chest Impression: See EMR Report (IMPRESSION: Worsening small infiltrate or focal effusion at the lateral left lung base. Stable cardiomegaly and pulmonary edema. Electronically signed by Ki Juan 09/05/2018 5:43 PM) - CONSULTS/PCP/HOSPITALIST Notification #1 *Consult/PCP/Hospitalist*: SCOTT Summer Time Discussed: 18:22 Consult Disposition: other (next shift) #2 Consult: Dr. Abbasi Time Discussed: 20:21 Consult Disposition: Admit Departure - Departure Date of Disposition Decision: 09/05/18 Time of Disposition Decision: 20:21 DIAGNOSIS: Acute exacerbation of CHF (congestive heart failure), Left lower lobe pneumonia Disposition: ADMITTED INPATIENT 09 Certified Medical Emergency: Emergent Condition: Stable Referrals and Follow-Ups: None,PCP [Primary Care Provider] - - Critical Care Note This patient required my direct & personal management of CC.: No Attestation - Physician/ RAMÓN Attestation Patient care was provided by Advanced Practice Provider:: No The physician spent face to face time with patient:: Yes Advanced Practice Provider documentation review:: Supervising physician onsite and consulted in the evaluation and care of this patient. The physician did have a face to face encounter with the patient. This chart was documented by the indicated scribe, (Alicia Jerome, Toshia) and accurately reflects the services I performed and decisions made by me, Bria Bhardwaj MD, as attested by the provider's signature.
[2018-09-06] MEDS: LASIX IV SCH ×2 (03:10→13:29)
[2018-09-06 05:11] LABS: URINE SOURCE CLEAN CATCH
[2018-09-06 05:17] LABS: BILIRUBIN URINE NEGATIVE (NEGATIVE); BLOOD URINE NEGATIVE (NEGATIVE); COLOR STRAW; GLUCOSE URINE NEGATIVE (NEGATIVE); KETONE URINE NEGATIVE (NEGATIVE); LEUKOCYTES URINE NEGATIVE (NEGATIVE); NITRITE URINE NEGATIVE (NEGATIVE); PROTEIN URINE NEGATIVE (NEGATIVE); SP GRAVITY URINE 1.004; TURBIDITY URINE CLEAR (CLEAR); UR EPITHELIAL CELLS <10 /HPF (<10); URINE BACTERIA NEGATIVE /HPF; URINE RBC <10 /HPF (<10); URINE WBC <10 /HPF (<10); UROBILINOGEN URINE NORMAL (NORMAL)
[2018-09-06 06:48] LABS: BASO# 0.01 X1000 (0.0-0.2); BASO% 0.1 % (0.0-0.8); EOS% 1.8 % (0.0-10.0); HEMATOCRIT 25.5 % (37.0-47.0); HEMOGLOBIN 8.6 g/dL (12.0-16.0); IMM GRAN# 0.02 X1000 (0.0-0.04); IMM GRAN% 0.2 % (0.0-0.5); LYMPH# 1.48 X1000 (1.2-3.4); LYMPH% 13.2 % (20.5-51.1); MCHC 33.7 g/dL (33-37); MCV 88.9 FL (81-99); MONO# 1.71 X1000 (0.11-0.59); MONO% 15.3 % (1.7-9.3); MPV 10.5 FL (7.4-10.4); NEUT# 7.75 X1000 (1.4-6.5); NEUT% 69.4 % (42.2-75.2); PLT 253 X1000 (130-400); RBC 2.87 XMIL (4.2-5.4); RDW 15.6 % (11.5-14.5); WBC 11.17 X1000 (4.8-10.8)
[2018-09-06] MEDS: HUMULIN R SUBQ SCH ×4 (06:49→21:57)
[2018-09-06 07:09] LABS: CALCIUM 8.9 mg/dL (8.8-10.2); CREATININE 1.5 mg/dL (0.5-0.9); POTASSIUM 4.2 mmol/L (3.5-5.1)
[2018-09-06] MEDS: COGENTIN PO SCH ×2 (11:39→20:41)
[2018-09-06] MEDS: HALDOL PO SCH ×2 (11:39→20:41)
[2018-09-06] MEDS: PROZAC PO SCH (11:40)
--- NOTE | 2018-09-06 15:07 | HISTORY AND PHYSICAL ---
PRIMARY CARE PHYSICIAN: Unknown. CHIEF COMPLAINT: Shortness of breath and cough times several days. HISTORY OF PRESENT ILLNESS: This is a 72-year-old female with a history of hypertension, diabetes mellitus type 2, CHF, bipolar disorder and chronic kidney disease, who presented to the emergency department with a several day history of cough and shortness of breath. The patient states that she was having difficulty breathing, and subsequently she came to the emergency department. In the ED, she was evaluated. She had imaging done which did show small infiltrate consistent with pneumonia. Subsequently she required admission for further management. At the time of my examination, the patient denied any headache, nausea, vomiting, diarrhea, chest pain, hemoptysis, melena but complained of shortness of breath and cough. PAST MEDICAL HISTORY: Hypertension, diabetes mellitus type 2, CHF, bipolar disorder, chronic kidney disease, breast cancer, hyperlipidemia. PAST SURGICAL HISTORY: Bilateral mastectomy, pacemaker/defibrillator, appendectomy. ALLERGIES: Keflex and penicillin and bee venom. SOCIAL HISTORY: Remote history of smoking. No history of alcohol or illicit drug use. CURRENT MEDICATIONS: Aspirin 325 mg p.o. daily, Cogentin 1 mg p.o. b.i.d., Coreg 12.5 mg p.o. b.i.d., Prozac 20 mg p.o. daily, Lasix 40 mg p.o. b.i.d., haloperidol 5 mg p.o. b.i.d., hydralazine 25 mg p.o. t.i.d., insulin glargine 15 units subcutaneously b.i.d., regular insulin sliding scale, isosorbide dinitrate 10 mg p.o. t.i.d., levothyroxine 50 mcg p.o. daily, nitroglycerin 0.4 p.r.n. q.5 minutes, Invega 20 mg as directed, pravastatin 40 mg p.o. daily, Seroquel 600 mg p.o. nightly at bedtime, Restoril 15 mg p.o. nightly at bedtime. FAMILY HISTORY: No history of coronary disease. REVIEW OF SYSTEMS: A 14-point review of systems is listed as per HPI, other systems negative. PHYSICAL EXAMINATION: GENERAL: Cooperative, friendly female. She is resting comfortably now. VITAL SIGNS: Temperature 99.0, pulse 94, respirations 36, blood pressure 130/83. HEENT: Head normocephalic and atraumatic. Extraocular movements were intact. PERRLA. NECK: No masses. CHEST: Bibasilar rales. CARDIOVASCULAR: Regular rate and rhythm. ABDOMEN: Soft. Positive bowel sounds. EXTREMITIES: Plus 1 edema. NEUROLOGICAL: She is awake, alert and oriented x3. : No bladder distention. SKIN: Warm. DIAGNOSTIC DATA: WBC is 12.87, hemoglobin 8.8, hematocrit 26.5, platelets 258. Sodium is 132, potassium 5.6, chloride 97, CO2 is 19, BUN is 32, creatinine 1.5, glucose is 73. ProBNP is 8632. Troponin is 0.010. Chest x-ray shows worsening small infiltrate on the left lung base, stable cardiomegaly and pulmonary edema. ASSESSMENT: A 72-year-old female with a history of hypertension, diabetes mellitus type 2, congestive heart failure, and bipolar disorder, who had presented to the emergency department with a several day history of worsening shortness of breath and productive cough. She was evaluated in the emergency department. She had imaging done which was consistent with pneumonia. Subsequently she requires admission for further management. IMPRESSION: 1. Suspected pneumonia. 2. Chronic congestive heart failure, unspecified. 3. Diabetes mellitus type 2. 4. Hypertension. 5. Bipolar disorder. PLAN: 1. We will admit the patient to the Medical Floor with telemetry. 2. We will check blood cultures and start the patient on IV antibiotics. 3. We will continue with gentle diuresis with Lasix. 4. Monitor blood glucose and put the patient on a sliding scale insulin regimen. 5. Monitor blood pressures and manage antihypertensive agents. 6. Restart other home medications. 7. Put the patient on DVT prophylaxis with SCDs. 8. We will continue to follow and reassess, make further recommendations based on the patient's clinical course. cc: Sami Abbasi MD
[2018-09-06] MEDS: INVEGA PO SCH (17:19)
[2018-09-06] MEDS: LEVAQUIN 500 MG/D5W 500 MG/100 ML IVPB IV SCH (20:40)
[2018-09-06] MEDS: RESTORIL PO SCH (20:41)
[2018-09-06] MEDS ORDERED: SEROQUEL PO SCH (21:00)
[2018-09-07] MEDS: LASIX IV SCH ×2 (05:50→18:57)
[2018-09-07] MEDS: SYNTHROID PO SCH ×2 (05:50→06:00)
[2018-09-07] MEDS: HUMULIN R SUBQ SCH ×4 (06:34→22:36)
--- NOTE | 2018-09-07 07:48 | Diag Imaging Result Doc PS360 ---
CHEST-2 VIEWS - 09/07/2018 INDICATION: pulm edema, pna COMPARISON: 09/05/2018 FINDINGS: Stable right ventricular pacemaker. Stable borderline cardiomegaly. There has been decrease in the infiltrate at the right lateral lung base. No new infiltrates. Stable mild pulmonary edema. No large pleural effusion. IMPRESSION: Improvement from prior. Electronically signed by Ki Juan 09/07/2018 7:46 AM
[2018-09-07] MEDS: PROZAC PO SCH (09:13)
[2018-09-07] MEDS: HALDOL PO SCH ×2 (09:13→22:36)
[2018-09-07] MEDS: COGENTIN PO SCH ×2 (09:13→22:35)
--- NOTE | 2018-09-07 15:58 | PROGRESS NOTE ---
DATE: 09/07/2018 SUBJECTIVE: Patient reports breathing much better in comparing with admission. Denies any fever or chills. OBJECTIVE: Vital Signs: Temperature 98.2, heart rate 80, respiratory rate 20, blood pressure 115/75, O2 saturation 95% on room air. General examination: This is a 72-year-old, female, lying in bed, in no acute distress. Cardiovascular: S1, S2 heard. No murmurs, gallops, or rubs. Regular rate and rhythm. Respiratory: Minimal coarse breath sounds and crackles noted in both pulmonary bases. Patient not using any accessory muscles or having work of breathing. Abdomen: Soft, nontender to palpation. Bowel sounds present. No organomegaly. Extremities: No clubbing, cyanosis, or edema. Peripheral pulses present in both legs. Neurological: Patient alert, oriented x3. Moves 4 extremities. LABORATORY DATA: Reviewed. ASSESSMENT AND PLAN: 1. Acute respiratory failure secondary to congestive heart failure exacerbation/left lower lobe pneumonia. Patient is receiving antibiotics and also Lasix 40 mg intravenous q.12 hours. Patient is breathing much better. She is on room air. She is not complaining of any shortness of breath, so I think at this point, we will continue with the same management and if she is feeling better, we will let her go tomorrow. 2. Diabetes mellitus type 2. We will continue with sliding scale insulin. Accu-Chek before meals and also at bedtime. 3. Hypertension. Blood pressure is under control. We will continue with the same medications. 4. Bipolar disorder. We will continue with home medications. 5. Disposition. I think this patient continues to improve. I think the patient can be discharged tomorrow with oral antibiotics. cc: King Anand MD
[2018-09-07] MEDS: APRESOLINE PO SCH ×2 (16:01→18:57)
[2018-09-07] MEDS: ISORDIL PO SCH ×2 (16:01→19:06)
[2018-09-07] MEDS: INVEGA PO SCH (18:57)
[2018-09-07] MEDS: COREG PO SCH (18:58)
[2018-09-07] MEDS ORDERED: SEROQUEL PO SCH (21:00)
[2018-09-07] MEDS: LEVAQUIN 500 MG/D5W 500 MG/100 ML IVPB IV SCH (22:35)
[2018-09-07] MEDS: RESTORIL PO SCH (22:36)
[2018-09-07] MEDS: KLOR-CON PO SCH (22:36)
[2018-09-08] MEDS: COREG PO SCH (06:40)
[2018-09-08] MEDS: SYNTHROID PO SCH (06:40)
[2018-09-08] MEDS: LASIX IV SCH (06:40)
[2018-09-08 07:16] VITALS: BP 136/75
[2018-09-08] MEDS: HUMULIN R SUBQ SCH ×2 (07:38→12:08)
[2018-09-08] MEDS ORDERED: ICAR-C PO SCH (09:00)
[2018-09-08] MEDS ORDERED: ASPIRIN EC PO SCH (09:00)
[2018-09-08] MEDS ORDERED: LANTUS INSULIN SUBQ SCH (09:00)
[2018-09-08] MEDS: PROZAC PO SCH (09:49)
[2018-09-08] MEDS: HALDOL PO SCH (09:49)
[2018-09-08] MEDS: COGENTIN PO SCH (09:50)
[2018-09-08] MEDS: ISORDIL PO SCH ×2 (09:50→12:10)
[2018-09-08] MEDS: APRESOLINE PO SCH ×2 (09:50→12:10)
[2018-09-08] MEDS: KLOR-CON PO SCH (09:50)
--- NOTE | 2018-09-09 08:27 | DISCHARGE SUMMARY ---
ADMISSION DATE: 09/06/2018 DISCHARGE DATE: 09/08/2018 ADMISSION DIAGNOSES: 1. Suspected pneumonia. 2. Chronic congestive heart failure unspecified. 3. Diabetes type 2. 4. Hypertension. 5. Bipolar disorder. DISCHARGE DIAGNOSES: 1. Acute respiratory failure secondary to congestive heart failure exacerbation and left lower lobe pneumonia improved. 2. Diabetes type 2. 3. Hypertension. 4. Bipolar. SUMMARY OF FINDINGS: This is a 72-year-old female who presented to the emergency room with several-day history of cough and shortness of breath. States she was having difficulty breathing and came into the emergency department. Imaging showed a small infiltrate consistent with pneumonia. She was placed on IV antibiotics, and some gentle diuresis with Lasix. Pattern blood sugars with sliding scale insulin, and continued her antihypertensives. She had a white blood cell count 2 days ago that was 11.17 and improving. Her O2 saturation on room air is 100% and has been afebrile for greater than 24 hours. It was now felt that she can safely be discharged home with home health services. DISCHARGE MEDICATIONS: 1. Aspirin 325 mg p.o. daily. 2. Cogentin 1 mg p.o. b.i.d. 3. Coreg 12.5 mg p.o. q.12 hours, 4. Fluoxetine 20 mg p.o. every morning. 5. Haldol 5 mg p.o. b.i.d. 6. Hydralazine 25 mg p.o. t.i.d. 7. Lantus 20 units subcutaneous daily. 8. Icar C 1 p.o. daily. 9. Isordil 10 mg p.o. t.i.d. 10. Synthroid 50 mcg p.o. daily. 11. Invega 12 mg p.o. after supper. 12. Klor-Con 20 mEq p.o. b.i.d. 13. Restoril 15 mg p.o. at bedtime. 14. Lasix 40 mg p.o. b.i.d. 15. 15 units subcutaneous b.i.d. 16. Humulin-R sliding scale. 17. Nitrostat 0.4 mg sublingually every 5 minutes p.r.n. 18. Pravastatin 40 mg p.o. daily. 19. Seroquel 300 mg p.o. at bedtime. FOLLOWUP: She has a followup appointment with SCOTT Machado on 09/14/2018, and will have home health services. TIME SPENT: This is a 35 minute discharge. Dictated by SCOTT Leonardo for King Anand MD Addendum: Patient seen and examined by myself. Agree with SCOTT note. It reflects my assessment and plan. Patient is being discharged in stable condition to home and will be seen by PCP as scheduled. cc: SCOTT Leonardo MD Eric Crampsey, CRNP [facility]
== END 2018-09-08 14:12 | disposition home health service (06) ==
LOC: ED 15:39 → SUATTDRO 09-06 01:33 → INTOOBSV 09-06 01:33 → 4N 09-06 01:33
PROVIDERS: ATTEND Internal Medicine
CPT/HCPCS: 71020; 71046; 80048; 80053; 81001; 82550; 82948; 83880; 84484; 85025; 85610; 85730; 93005; 96365; 96375; 97162; 97530; 99285; A9270; J1815; J1940; J1956; XXXXX

== ENCOUNTER 2018-11-21 19:34 | Observation (INO) ==
[2018-11-21 19:59] LABS: BASO# 0.02 X1000 (0.0-0.2); BASO% 0.2 % (0.0-0.8); EOS# 0.04 X1000 (0.0-0.7); EOS% 0.4 % (0.0-10.0); HEMATOCRIT 26.5 % (37.0-47.0); HEMOGLOBIN 8.7 g/dL (12.0-16.0); IMM GRAN# 0.04 X1000 (0.0-0.04); IMM GRAN% 0.4 % (0.0-0.5); LYMPH# 0.86 X1000 (1.2-3.4); LYMPH% 8.5 % (20.5-51.1); MCH 28.9 PG (27-31); MCHC 32.8 g/dL (33-37); MONO# 0.99 X1000 (0.11-0.59); MONO% 9.8 % (1.7-9.3); MPV 10.9 FL (7.4-10.4); NEUT# 8.13 X1000 (1.4-6.5); NEUT% 80.7 % (42.2-75.2); PLT 366 X1000 (130-400); RBC 3.01 XMIL (4.2-5.4); RDW 16.6 % (11.5-14.5); WBC 10.08 X1000 (4.8-10.8)
[2018-11-21] MEDS ORDERED: NS 1,000 ML IV PRN (20:05)
--- NOTE | 2018-11-21 20:17 | EKG Report ---
Test Performed on : 11/21/2018 7:57:57 PM Test Reason : right arm weakness,aphasia Blood Pressure : / mmHG Vent. Rate : 092 BPM Atrial Rate : 092 BPM P-R Int : 158 ms QRS Dur : 146 ms QT Int : 418 ms P-R-T Axes : 053 -86 075 degrees QTc Int : 516 ms Atrial-sensed ventricular-paced rhythm Abnormal ECG When compared with ECG of 10-SEP-2018 00:30, No significant change was found Unconfirmed Result
[2018-11-21 20:23] LABS: INR 1.03
[2018-11-21 20:24] LABS: ALBUMIN 3.7 g/dL (3.5-5.0); CALCIUM 8.7 mg/dL (8.8-10.2); CREATININE 1.7 mg/dL (0.5-0.9); POTASSIUM 5.6 mmol/L (3.5-5.1); PTT 23.5 Seconds (22.3-41.8); TOTAL BILIRUBIN 0.3 mg/dL (0.20-1.00); TOTAL PROTEIN 6.7 g/dL (6.3-8.3)
[2018-11-21] MEDS ORDERED: HUMULIN R IV ONE (20:50)
[2018-11-21] MEDS ORDERED: NS 1,000 ML IV ONE (20:51)
--- NOTE | 2018-11-21 20:55 | Diag Imaging Result Doc PS360 ---
EXAM: CT HEAD W/O CONTRAST INDICATION: AMS TECHNIQUE: This exam was performed using automated exposure control, adjustment of mA or kV according to patient size, and/or use of iterative reconstruction technique. COMPARISON: 11/14/2018 FINDINGS: There is no definite acute infarct given the limited sensitivity of CT versus MRI. There is no discrete intracranial mass, mass effect, or intracranial hemorrhage. The surrounding soft tissues and bony structures are essentially unremarkable. IMPRESSION: No evidence of acute intracranial pathology. Electronically signed by Miguel Angel Layton 11/21/2018 8:52 PM
[2018-11-21 21:01] LABS: UR AMPHETAMINES QUAL NONE DETECTED (NONE DETECT); UR BARBITUATES QUAL NONE DETECTED (NONE DETECT); UR BENZODIAZEPIN QUAL NONE DETECTED (NONE DETECT); UR CANNABINOIDS QUAL NONE DETECTED (NONE DETECT); UR COCAINE QUAL NONE DETECTED (NONE DETECT); UR METHADONE QUAL NONE DETECTED (NONE DETECT); UR METHAMPHETAMINE QUAL NONE DETECTED (NONE DETECT); UR OPIATES QUAL NONE DETECTED (NONE DETECT); UR OXYCODONE QUAL NONE DETECTED (NONE DETECT); UR PCP QUAL NONE DETECTED (NONE DETECT); UR PROPOXYPHENE QUAL NONE DETECTED (NONE DETECT); UR TCA QUAL PRESUMPTIVE POSITIVE (NONE DETECT)
--- NOTE | 2018-11-21 21:02 | Diag Imaging Result Doc PS360 ---
EXAM: CHEST-PORTABLE INDICATION: aphasia TECHNIQUE: One view COMPARISON: 09/07/2018 FINDINGS: There is suggestion of mild atelectasis at the right lung base. The lungs are grossly clear, otherwise. There is no discrete pleural fluid collection or pneumothorax. There is stable cardiomegaly. The pacemaker/defibrillator is in stable position. IMPRESSION: Cardiomegaly and suggestion of mild right basilar atelectasis. Electronically signed by Miguel Angel Layton 11/21/2018 8:59 PM
[2018-11-21] MEDS ORDERED: HUMULIN R (PARKWAY) ONE (21:04)
[2018-11-22] MEDS: HUMULIN R (PARKWAY) SUBQ SCH ×5 (02:24→22:02)
[2018-11-22] MEDS: ATIVAN IV PRN ×2 (02:25→22:47)
[2018-11-22 08:54] LABS: ALBUMIN 3.3 g/dL (3.5-5.0); CALCIUM 8.5 mg/dL (8.8-10.2); CREATININE 1.4 mg/dL (0.5-0.9); POTASSIUM 4.4 mmol/L (3.5-5.1); TOTAL BILIRUBIN 0.4 mg/dL (0.20-1.00); TOTAL PROTEIN 6.6 g/dL (6.3-8.3)
[2018-11-22 10:04] LABS: URINE SOURCE VOIDED
[2018-11-22 10:10] LABS: BILIRUBIN URINE NEGATIVE (NEGATIVE); BLOOD URINE 2+ (NEGATIVE); CLARITY CLEAR (CLEAR); COLOR YELLOW; GLUCOSE URINE NEGATIVE (NEGATIVE); KETONE URINE NEGATIVE (NEGATIVE); LEUKOCYTES URINE 1+ (NEGATIVE); NITRITE URINE NEGATIVE (NEGATIVE); PH URINE 6.5; PROTEIN URINE NEGATIVE (NEGATIVE); SP GRAVITY URINE 1.005; UROBILINOGEN URINE NORMAL
[2018-11-22 10:12] LABS: URINE WBC <10 /HPF (<10)
--- NOTE | 2018-11-22 16:15 | CONSULTATION ---
DATE OF CONSULTATION: 11/22/2018 HISTORY OF PRESENT ILLNESS: Ms. Collazo is 73 years old and there is question of neurologic explanation for recent episode. History from the patient is that she was feeling pretty well, talking on the telephone with sister yesterday when she suddenly felt her face become twisted, and she had trouble making herself understood with speech. She believes that she did not have any trouble understanding what sister said to her. She reported noticing shaking in both arms, more prominent on the right, but definitely present bilaterally. She did not lose consciousness or have altered awareness. There was no memory gap. There was no new vision disturbance. The episode resolved in a matter of minutes. During that time, sister on the phone hung up, called another relative locally, who called ambulance and regasification plant operator showed up. Ms. Collazo remembers regasification plant operator arriving. She has felt a little bit tremulous and a little bit weak all over since admission. She has not had any new problems. Workup includes noncontrast CT showing nothing remarkable. Urine drug screen was positive only for tricyclics. Initial blood sugar was greater than 500, last blood sugar 138. Sodium was initially 127 and later 133. BUN was 33 and later 25. The sodium and BUN are similar to her baseline levels noted on prior lab reports in the computer. She has been afebrile here. Heart rate has ranged 80s to 90s. Systolic blood pressures were initially 130s and more recently 110s. I saw Ms. Collazo with somewhat similar report when she was hospitalized in July this year. She told me then she was convinced symptoms were due to stress. Exam was nonfocal then. EEG was considered, but not done. She told me today that she has seen Dr. Hogan in [place] for Neurology evaluation as an outpatient and specifically for question of seizure diagnosis. She had EEG a week or 2 ago. She does not know that report. She has followup with Dr. Hogan. She reports Dr. Hogan did not prescribe medicine for seizure control. PHYSICAL EXAMINATION: On exam now, Ms. Collazo is awake, alert, attentive, oriented. Speech is not dysarthric. Language function is intact on brief bedside testing. Head and neck are unremarkable. Visual jimenez are full. Extraocular movements are full. Facial motility is symmetric now. Tongue protrudes variably to the midline and to the left inconsistently. There is not a consistent tongue motility deficit apparent. Shoulder shrug is equal. Strength is normal in the arms and legs. She had some inconsistent effort with maintaining right arm elevated, but there was not a focal motor deficit. Tone is symmetric. She did well on [id number] testing bilaterally. She reports symmetric sensation to gross testing over the limbs. Proprioception is good at the right second finger MCP joint. I did not test her gait. IMPRESSION: Reported episode of speech difficulty and generalized shaking. I do not have a definite explanation for this. We might consider electroencephalogram, but since she had electroencephalogram with Dr. Hogan recently and since he is epileptologist, and since she has been stable here, I do not think we need to do anything urgently. I encouraged her to take her medicines as directed, to work hard on her blood sugar, and to keep followup with her other doctors. I will be glad to see her again, but I think best next step is for her to follow up with Dr. Hogan. Thanks for asking Neurology to see Ms. Collazo. cc: MD KATIE Segovia III
--- NOTE | 2018-11-22 16:27 | HISTORY AND PHYSICAL ---
CHIEF COMPLAINT: Twisting face, slurred speech, hand shaky and twisted. HISTORY OF PRESENT ILLNESS: Ms. Collazo is a 73-year-old female with a past medical history of hypertension, diabetes mellitus type 2, congestive heart failure, bipolar disorder, and chronic kidney disease, who presented to the ED after on 11/21/2018 around 2:00 in the afternoon, she had an incident of a twisted face, slurred speech, hand shaking and twisted, and another episode that happened while she was in the ED. She reports that this has happened to her 2 other times, and they felt it was related to elevation in her potassium. She also reported some shortness of breath along with the. She is feeling better this morning, and is not as weak feeling. Head CT was unremarkable. She is not a candidate for an MRI. She has a permanent pacemaker. She did have a sodium of 127. Her potassium was 5.6, and is now down to 4.4. Her initial blood glucose was 522. She is down to 138. She has some elevated transaminitis. Those are all back down to normal. We have arranged for neurology consult. Currently, awaiting their recommendations. PAST MEDICAL HISTORY: 1. Hypertension. 2. Diabetes mellitus type 2. 3. Congestive heart failure. 4. Bipolar disorder. 5. Chronic kidney disease. 6. Breast cancer. 7. Hyperlipidemia. PAST SURGICAL HISTORY: 1. Bilateral mastectomy. 2. Pacemaker defibrillator. 3. Appendectomy. ALLERGIES: 1. Keflex. 2. Penicillin. 3. Bee venom. SOCIAL HISTORY: Remote history of smoking. No history of alcohol or illicit drug use. FAMILY HISTORY: No history of coronary artery disease. SYSTEMS REVIEW: Twelve point review of systems completely negative except for those mentioned in HPI. PHYSICAL EXAMINATION: VITAL SIGNS: Temperature 97.9 degrees, heart rate 96, respirations 18, blood pressure 117/72, and O2 is 100% on room air. GENERAL: Ms. Collazo is a pleasant 73-year-old female who is sitting up on the side of bed brushing her teeth in no acute distress. She would get up and walk from the bed to the bedside table without any issues. Could not assess any thing wrong with her gait or strength. HEENT: Atraumatic, normocephalic. PERRL. NECK: Supple. Trachea midline. CARDIOVASCULAR: S1, S2 appreciated. No murmurs, gallops, or rubs noted. RESPIRATORY: Lung sounds clear bilaterally. GASTROINTESTINAL: Soft, nontender, and nondistended. Positive bowel sounds times 4 quadrants. EXTREMITIES: Lower extremities are negative for edema. NEUROLOGIC: She is awake, alert, and oriented x4. Follows commands. Moves all extremities, and walking in the room unassisted, do not appreciate any focal deficits. DIAGNOSTIC DATA: Head CT no evidence of intracranial pathology. Chest x-ray with cardiomegaly suggesting mild basilar atelectasis. EKG atrial sensed and V-paced at 92 beats per minute. LABORATORY DATA: White count 10, hemoglobin and hematocrit 8.7 and 26.5, platelet count is 366,000. Sodium 127, potassium 5.6, BUN 33, creatinine 1.7, and blood glucose was 522. AST 33, ALT 46, and alkaline phosphatase 134. Repeat laboratory data showed sodium of 133, potassium was 4.4, BUN 25, creatinine 1.4, and blood glucose was 138. ASSESSMENT AND PLAN: 1. Question of seizure-like activity versus TIA or CVA. We will ask Neurology to see the patient. She has Ativan ordered 1 mg IV q.[address] was negative for any acute findings. 2. Anemia. We will watch this closely. She does not complain of any overt bleeding. 3. Hypertension. 4. Diabetes mellitus type 2. We will place on sliding scale with pattern blood sugars. 5. CHF, not appreciate any failure. 6. Bipolar disorder. 7. Chronic kidney disease. 8. History of breast cancer status post bilateral mastectomy. 9. Hyperlipidemia. 10. Further recommendations to follow physician evaluation, laboratory and diagnostic data. Dictated by SCOTT Hawley for Smooth Jo MD cc: MD Krystal Marcelo
[2018-11-22] MEDS ORDERED: DUONEB (A & A) INH PRN (23:02)
[2018-11-22] MEDS ORDERED: SEROQUEL XR PO SCH (23:15)
--- NOTE | 2018-11-22 23:41 | HISTORY AND PHYSICAL ---
ADDENDUM: Patient seen and examined by myself. Full note dictated and discussed with nurse practitioner. Patient presented to the hospital with right-sided weakness. We are going to admit her to the hospital, evaluate for stroke. We will continue to follow her chronic issues of congestive heart failure, hypertension, chronic obstructive pulmonary disease, dyspareunia, diabetes, hypothyroidism, and will follow. See full note. cc: Smooth Jo MD
[2018-11-22] MEDS: LASIX PO SCH (23:49)
[2018-11-22] MEDS: LANTUS INSULIN SUBQ SCH (23:58)
[2018-11-23] MEDS: KLOR-CON PO SCH ×2 (00:03→08:36)
[2018-11-23] MEDS: HUMULIN R (PARKWAY) SUBQ SCH ×4 (06:23→11:05)
[2018-11-23 06:47] LABS: BASO# 0.03 X1000 (0.0-0.2); BASO% 0.3 % (0.0-0.8); EOS# 0.45 X1000 (0.0-0.7); HEMATOCRIT 28.8 % (37.0-47.0); HEMOGLOBIN 9.1 g/dL (12.0-16.0); IMM GRAN# 0.02 X1000 (0.0-0.04); IMM GRAN% 0.2 % (0.0-0.5); LYMPH# 1.27 X1000 (1.2-3.4); LYMPH% 14.1 % (20.5-51.1); MCH 28.3 PG (27-31); MCHC 31.6 g/dL (33-37); MCV 89.4 FL (81-99); MONO# 1.22 X1000 (0.11-0.59); MONO% 13.6 % (1.7-9.3); MPV 10.2 FL (7.4-10.4); NEUT# 5.99 X1000 (1.4-6.5); NEUT% 66.8 % (42.2-75.2); PLT 274 X1000 (130-400); RBC 3.22 XMIL (4.2-5.4); RDW 16.7 % (11.5-14.5); WBC 8.98 X1000 (4.8-10.8)
[2018-11-23] MEDS ORDERED: SYNTHROID PO SCH (07:00)
[2018-11-23] MEDS ORDERED: COREG PO SCH (07:00)
[2018-11-23 07:06] LABS: CALCIUM 8.4 mg/dL (8.8-10.2); CREATININE 1.4 mg/dL (0.5-0.9); POTASSIUM 4.5 mmol/L (3.5-5.1)
[2018-11-23 07:52] VITALS: BP 109/62
[2018-11-23] MEDS: LASIX PO SCH (08:36)
[2018-11-23] MEDS: LANTUS INSULIN SUBQ SCH (08:48)
[2018-11-23] MEDS ORDERED: ASPIRIN EC PO SCH (09:00)
[2018-11-23] MEDS ORDERED: PROZAC PO SCH (09:00)
[2018-11-23] MEDS ORDERED: LANTUS INSULIN SUBQ SCH (09:00)
[2018-11-23] MEDS ORDERED: PRAVACHOL PO SCH (09:00)
[2018-11-23] MEDS ORDERED: APRESOLINE PO SCH (09:00)
[2018-11-23] MEDS ORDERED: ISORDIL PO SCH (09:00)
--- NOTE | 2018-11-23 14:54 | DISCHARGE SUMMARY ---
ADMISSION DATE: 11/22/2018 DISCHARGE DATE: 11/23/2018 CONSULTATIONS: Bettina Romo III, MD with Neurology. PRIMARY CARE PROVIDER: Krystal Jeffers. NEUROLOGIST: Dr. Hogan. DISCHARGE DIAGNOSIS: 1. Question of seizure-like activity versus transient ischemic attack or cerebrovascular accident. She has been followed by Neurology. Her head CT was negative for any findings. Unfortunately, she has a pacemaker in place and were not able to an MRI. She had recently had an EEG with Dr. Hogan, her neurologist. She has been stable since her admission. Dr. Romo did not feel that we needed to do anything urgently. She has been encouraged to take her medications as directed and to work hard on her blood sugars and follow up with Dr. Hogan. 2. Anemia, stable. 3. Hypertension. Continue home medications. 4. Diabetes mellitus. Continue diabetic diet and home medications. 5. Congestive heart failure with not any exacerbation. 6. Bipolar disorder. Continue home medications. 7. Chronic kidney disease, stable. 8. History of breast cancer status post bilateral mastectomy. Aware. 9. Hyperlipidemia. Continue home medications. HOSPITAL COURSE: Briefly, Ms. Collazo is a 73-year-old -[place] female with past medical history of hypertension, diabetes mellitus type 2, congestive heart failure, bipolar disorder, chronic kidney disease, questionable seizures, who reported to the ED on 11/21/2018 around 2 in the afternoon. She had an incident of a twisted face, slurred speech and shaking, and twisting of her hands as well as another episode while she was in the ED. She reports that she has had this happen to her before related to an elevation in her potassium. She also had some associated shortness of breath. Her head CT was unremarkable. She was not a candidate for MRI. She has a permanent pacemaker in place. She did have a decreased sodium of 127. Her initial potassium was 5.6 and on recheck that morning it was 4.4. She also had some hyperglycemia at 522. Her blood sugars have been since controlled as well as some elevated transaminase, which seems to be chronic. She was followed by Neurology. They do not have any urgent suggestions, as she has had no more episodes. They recommend for her to keep a tight control on her blood pressure as well as diabetes and follow up with her regular neurologist, Dr. Hogan, and she will be discharged back home today. Temperature is 97.5, heart rate 80, respiratory rate is 18, blood pressure 109/62, O2 is 98% on room air. DISCHARGE DIET: Diabetic. DISCHARGE MEDICATIONS: 1. Seroquel XR 300 mg p.o. at bedtime. 2. Potassium chloride 10 mEq p.o. b.i.d. 3. Pravachol 20 mg p.o. daily. 4. Apresoline 25 mg p.o. t.i.d. 5. Aspirin 325 mg p.o. daily. 6. Insulin glargine 15 units subcutaneously b.i.d. 7. Coreg 12.5 mg p.o. q.12 hours. 8. Humulin R as directed. 9. Icar-C 1 p.o. daily. 10.Invega 12 mg p.o. for 30 days. 11.Isordil 10 mg p.o. t.i.d. 12.Lantus 20 units subcutaneously daily. 13.Lasix 40 mg p.o. b.i.d. 14.Nitrostat 0.4 mg sublingual p.r.n. 15.Prozac 20 mg p.o. q.a.m. 16.Synthroid 50 mcg p.o. daily. FOLLOWUP: Ms. Collazo is being discharged back home with family. She has been encouraged to take all home medications as prescribed, keep a tight control on her blood pressure as well as diabetes, and follow up with her regular neurologist, Dr. Hogan, which she has an appointment scheduled for tomorrow. She can return to the ED or call 911 for any worsening of symptoms. Dictated by SCOTT Hawley for Smooth Jo MD cc: Smooth Jo MD
--- NOTE | 2018-11-24 22:58 | DISCHARGE SUMMARY ---
ADMISSION DATE: 11/22/2018 DISCHARGE DATE: 11/23/2018 ADDENDUM: Patient was seen and examined by myself. Full note dictated and discussed with nurse practitioner. On discharge, the patient is awake, alert, currently in no distress. All of her neurologic symptoms appear to have resolved at present time. She certainly has an outpatient neurologist, and in fact she has an appointment with him over the next day or two. We are going to discharge her home and allow her to follow up with him. We discussed with patient the importance of controlling blood sugars, avoiding stress, avoiding smoke and smoke exposure. Please see full note. cc: Smooth Jo MD
--- NOTE | 2018-11-26 06:23 | PROVIDER DOCUMENTATION ---
This chart was entered by Reyna Prado Scribe, acting as scribe for Reginald Torrez MD. HPI-General Adult - General Chief Complaint: Weakness Stated Complaint: RT SIDED WEAKNESS Time Seen by Provider: 11/21/18 19:40 Source: patient Allergies/Adverse Reactions: Patient Allergies Allergy/AdvReac Type Severity Reaction Status Date / Time bee venom protein (honey bee) Allergy Unknown Unknown Verified 09/05/18 16:18 cephalexin monohydrate * Allergy Unknown RASH Verified 09/05/18 16:18 [From Keflex] Penicillins Allergy Unknown ITCHING Verified 09/05/18 16:18 cephalexin [From Keflex] Allergy ITCHING Verified 09/05/18 16:18 Home Medications: Home Medication List Medication Instructions Recorded Confirmed Last Taken Type PRAVAstatin [Pravachol] 20 mg PO DAILY 02/08/18 11/22/18 05/21/18 History Levothyroxine [Synthroid] 50 microgm PO DAILY@0700 tablet 03/24/18 11/22/18 05/21/18 Rx Hydralazine [Apresoline] 25 mg PO TID #90 tab 04/19/18 11/22/18 08/04/18 07:00 Rx 25mg Isosorbide Dinitrate [Isordil] 10 mg PO TID #90 tab 04/19/18 11/22/18 05/21/18 Rx Insulin Glargine [Basaglar] 15 unit SUBQ BID #1 insuln.pen 05/25/18 11/22/18 Unknown Rx Aspirin EC 325 mg PO DAILY #30 tab 08/03/18 11/22/18 Unknown Rx Carvedilol [Coreg] 12.5 mg PO Q12HR@0700,1900 #60 tab 08/03/18 11/22/18 08/04/18 07:00 Rx 12.5mg Nitroglycerin [Nitrostat] 0.4 mg SUBLINGUAL Q5M #120 tab.subl 08/03/18 11/22/18 Unknown Rx Fluoxetine [Prozac] 20 mg PO QAM 30 Days #30 cap 08/30/18 11/22/18 Unknown Rx Iron Carbonyl/Ascorbic Acid 1 ea PO DAILY 30 Days #30 tab 08/30/18 11/22/18 Unknown Rx [Icar-C] Paliperidone E.r. [Invega] 12 mg PO PCS 30 Days #120 tab 08/30/18 11/22/18 Unknown Rx Insulin Glargine [Lantus Insulin] 20 unit SUBQ DAILY unit 09/02/18 11/22/18 Unknown Rx Insulin Human Regular [Humulin R] 0 unit SUBQ 0700,1100,1600,2100 ml 09/02/18 11/22/18 Unknown Rx Furosemide [Lasix] 40 mg PO BID #60 tab 09/08/18 11/22/18 Unknown Rx Potassium Chloride E.r. [Klor-Con] 10 meq PO BID 11/22/18 11/22/18 Unknown His tory Quetiapine E.r. [Seroquel Xr] 1 tab PO QHS 11/22/18 11/22/18 Unknown History - History of Present Illness -Gen Adult Nature of Presenting Problems: pt is a 73 yr old female presenting via EMS with complaint of right hand/arm weakness and shortness of breath. pt reports hx of CVA 4 months ago. pt denies any other weakness or difficulty, pt unsure when symptoms began. pt denies any chest pain. pt also reports constipation x 1 week, no relief with enemas Location of Pain/Injury: reports: upper extremity (right arm/hand) Pain Radiation: reports: no radiation Quality of Pain: reports: none Severity: reports: mild Onset/Duration: reports: unsure Context/Activities at Onset: reports: rest Modifying Factors: improves with: nothing Associated Symptoms: reports: shortness of breath, sensory/motor loss (right a rm/hand). denies: arm pain, back/neck pain, chest pain, dizziness, fever/chills Similar Symptoms Previously?: No Recently seen or treated by another doctor?: No Review of Systems - Adult - REVIEW OF SYSTEMS - ADULT Constitutional: denies: fever, fatique Eyes: reports: no symptoms reported Ears, Nose, Mouth & Throat: reports: no symptoms reported Cardiovascular: denies: chest pain, palpitations, syncope Respiratory: reports: shortness of breath. denies: cough Gastrointestinal: reports: constipation. denies: abdominal pain, diarrhea, nausea, vomiting Genitourinary: reports: no symptoms reported Musculoskeletal: reports: muscle weakness (right arm). denies: bone pain, back pain, joint pain Integumentary: denies: itching, rash Neurological: reports: numbness (right arm/hand). denies: dizziness/vertigo, headache/migraines, syncope Psychiatric: reports: no symptoms reported Endocrine: reports: no symptoms reported Hematologic/Lymphatic: reports: no symptoms reported Allergic/Immunologic: reports: no symptoms reported All Other Systems: Reviewed and Negative Past History - Adult - PAST MEDICAL HISTORY-ADULT Review of Records: reports: Old Records Reviewed, Nursing Assessment Review, Medications Reviewed, Social history reviewed & non-contributory. Major Childhood Illnesses: reports: denies history Cardiovascular: reports: CHF, HTN, hyperlipidemia, pacemaker (/defib) Respiratory: reports: asthma, COPD Gastrointestinal: reports: GERD Obstetrical/Gynecological: reports: other (breast cancer) Genitourinary: reports: kidney disease Musculoskeletal: reports: arthritis Neurological: reports: denies history Psychiatric: reports: schizophrenia Endocrine/Immune: reports: denies history, Diabetes, thyroid disorder Other Conditions: reports: denies history, cataract/glaucoma - PRIOR SURGERIES/PROCEDURES Surgical/Procedure History: reports: appendectomy, pacemaker (/defib), BTL, joint replacement (hip), other (cataract removal) - IMMUNIZATION STATUS Childhood Immunizations: See Nurse Assessment Flu Vaccine: See Nurse Assessment - FAMILY HISTORY Family History: reviewed, not pertinent - SOCIAL HISTORY Smoking: quit greater than 1 year Living Situation: alone Physical Exam-General - PHYSICAL EXAM-ADULT Initial Vital Signs Reviewed: Yes - CONSTITUTIONAL General Appearance: alert, no apparent distress, obese - EYES Eyes: PERRL/EOMI - HEAD, EARS, NOSE, MOUTH & THROAT HENMT: normocephalic/atraumatic, moist mucous membranes, normal ENT inspection - NECK Neck: non-tender, full range of motion, supple, normal inspection - RESPIRATORY Respiratory: chest non-tender, lungs clear, normal breath sounds, no respiratory distress, no accessory muscle use - CARDIOVASCULAR Cardiovascular: normal peripheral pulses, regular rate, rhythm, no edema - GASTROINTESTINAL (ABDOMEN) Abdominal Exam: normal bowel sounds, non tender, soft - LYMPHATIC Lymphatic: no adenopathy - MUSCULOSKELETAL Back Exam: normal inspection Extremity: normal range of motion, non-tender, normal inspection - SKIN Integumentary: normal color, normal turgor, warm/dry - NEUROLOGIC Neurologic: motor weakness (right hand decreased station helper strength) - PSYCHIATRIC Psych/Mental Status: normal mood/affect Progress - PLAN OF CARE/RESULTS Progress/Plan/Lab Results: Vital Signs - 8 hr 11/21/18 19:30 Temperature 98.5 F Pulse Rate 95 H Respiratory Rate 22 Blood Pressure 131/80 O2 Sat by Pulse Oximetry 96 Laboratory Results - last 24 hr 11/21/18 19:42 POC Glucose 478 H D Orders Category Date Time Status CT HEAD W/O CONTRAST [CT] Stat Exams 11/21/18 19:41 Ordered CBC WITH ELECTRONIC DIFF [HEME] Stat Lab 11/21/18 19:45 Results CMP [COMPREHENSIVE METABOLIC PANEL] [CHEM] Stat Lab 11/21/18 19:45 Received seizure episode at 2125 lasting less than 1 minute manifest by left facial twitching and left arm twitching consulted [place] neurologist, Dr. Conway, who does not recommend TPA due to low NIH score of 2. Result Diagrams: 11/23/18 05:45 11/23/18 05:45 - EKG 1 Time of EKG reading by physician:: 19:58 EKG Read and Signed by:: Reginald Torrez EKG Interpretation (*Must complete 3 of following elements*): Abnormal Rate: 92 Rhythm: atrial sensed ventricular paced rhythm - XRAY 1 XRAY Study: Chest Impression: Abnormal (Signed EXAM: CHEST-PORTABLE INDICATION: aphasia TECHNIQUE: One view COMPARISON: 09/07/2018 FINDINGS: There is suggestion of mild atelectasis at the right lung base. The lungs are grossly clear, otherwise. There is no discrete pleural fluid collection or pneumothorax. There is stable cardiomegaly. The pacemaker/defibrillator is in stable position. IMPRESSION: Cardiomegaly and suggestion of mild right basilar atelectasis. Electronically signed by Miguel Angel Layton 11/21/2018 8:59 PM 11/21/182058 Interpreting Physician: Miguel Angel Layton MD Dictated Date/Time: 11/21/182057 cc: Reginald Torrez MD; Krystal Jeffers) - CT/MRI 1 CT Study: Head Impression: Normal ( EXAM: CT HEAD W/O CONTRAST INDICATION: AMS TECHNIQUE: This exam was performed using automated exposure control, adjustment of mA or kV according to patient size, and/or use of iterative reconstruction technique. COMPARISON: 11/14/2018 FINDINGS: There is no definite acute infarct given the limited sensitivity of CT versus MRI. There is no discrete intracranial mass, mass effect, or intracranial hemorrhage. The surrounding soft tissues and bony structures are essentially unremarkable. IMPRESSION: No evidence of acute intracranial pathology. Electronically signed by Miguel Angel Layton 11/21/2018 8:52 PM 11/21/182051 Interpreting Physician: Miguel Angel Layton MD Dictated Date/Time: 11/21/182050 cc: Reginald Torrez MD; Krystal Jeffers) - CONSULTS/PCP/HOSPITALIST Notification #1 *Consult/PCP/Hospitalist*: Dr. Bennett, hospitalist Time Discussed: 22:35 Reason/Comments: admit and consult neurologist Consult Disposition: Admit Departure - Departure Date of Disposition Decision: 11/22/18 Time of Disposition Decision: 00:40 DIAGNOSIS: Seizure-like activity Uncontrolled diabetes mellitus Qualifiers: Diabetes mellitus type: type 2 Glycemic state: with hyperglycemia Qualified Code(s): E11.65 - Type 2 diabetes mellitus with hyperglycemia Disposition: ADMITTED INPATIENT Certified Medical Emergency: Emergent Condition: Stable - Critical Care Note This patient required my direct & personal management of CC.: No Attestation - Physician/ RAMÓN Attestation Patient care was provided by Advanced Practice Provider:: No The physician spent face to face time with patient:: Yes Advanced Practice Provider documentation review:: Supervising physician onsite and consulted in the evaluation and care of this patient. The physician did have a face to face encounter with the patient. - NIH Stroke Scale Level of Consciousness: 0-Alert LOC Questions (ask month and age): 0-Answers Both Correctly LOC Commands (ask to open & close eyes;make a fist, let go): 0-Obeys Both Correctly Best Gaze (horizontal eye movement): 0-Normal Visual (use finger movement, counting or visual threat): 0-No Visual Loss Facial Palsy (show teeth or raise eyebrows & close eyes tght: 0-Symmetrical Movement Motor Function-left arm: 0-Normal Motor Function-right arm: 0-Normal Motor Function-left le-Normal Motor Function-right le-Normal Limb Ataxia(clmtdj-[id number], or heel to valdez): 0-No Ataxia Sensory(pin prick to face,arms,trunk,legs-compare side/side): 0-No Ataxia Best Language(name item/read sentence.Ex-Down to Earth): 1-Mild to Moderate Aphasia Dysarthria(Pt read words or say words Ex.Mama,Tip-Top,Thanks: 1-Mild-Mod Slurring Words Extinction and Inattention: 0-Normal NIH Total Score: 2 This chart was documented by the indicated scribe, (Reyna Prado, Jairibjose luis) and accurately reflects the services I performed and decisions made by me, Jenn Torrez MD, as attested by the provider's signature.
== END 2018-11-23 11:45 | disposition home or self-care (01) ==
LOC: SUPCPDRO → P.ED 19:34 → INTOOBSV 11-22 00:23 → SUATTDRO 11-22 00:23 → P.MEDSURG 11-22 00:23
PROVIDERS: ATTEND Family Medicine

== ENCOUNTER 2018-12-12 14:40 | Inpatient (IN) ==
[2018-12-12] MEDS ORDERED: ASPIRIN PO ONE (15:08)
--- NOTE | 2018-12-12 15:29 | Diag Imaging Result Doc PS360 ---
CHEST-2 VIEWS - 12/12/2018 INDICATION: sob COMPARISON: 11/21/2018 FINDINGS: Stable pacemaker. Stable cardiomegaly. Trace right pleural effusion. Stable increased markings in the right lung base suggesting mild infiltrate or edema. IMPRESSION: Little change from prior. Electronically signed by Ki Juan 12/12/2018 3:27 PM
--- NOTE | 2018-12-12 15:31 | EKG Report ---
Test Performed on : 12/12/2018 2:59:47 PM Test Reason : SOB Blood Pressure : / mmHG Vent. Rate : 092 BPM Atrial Rate : 092 BPM P-R Int : 158 ms QRS Dur : 142 ms QT Int : 420 ms P-R-T Axes : 051 -85 072 degrees QTc Int : 519 ms Atrial-sensed ventricular-paced rhythm Abnormal ECG When compared with ECG of 21-NOV-2018 19:57, (Unconfirmed) No significant change was found Unconfirmed Result
[2018-12-12] MEDS ORDERED: LASIX IV ONE (16:18)
--- NOTE | 2018-12-12 16:23 | PROVIDER DOCUMENTATION ---
HPI-Chest Pain - General Chief Complaint: Shortness of Breath Stated Complaint: SOB, HEART PT Time Seen by Provider: 12/12/18 16:07 Source: patient Allergies/Adverse Reactions: Patient Allergies Allergy/AdvReac Type Severity Reaction Status Date / Time bee venom protein (honey bee) Allergy Unknown Unknown Verified 09/05/18 16:18 cephalexin monohydrate * Allergy Unknown RASH Verified 09/05/18 16:18 [From Keflex] Penicillins Allergy Unknown ITCHING Verified 09/05/18 16:18 cephalexin [From Keflex] Allergy ITCHING Verified 09/05/18 16:18 Home Medications: Home Medication List Medication Instructions Recorded Confirmed Last Taken Type PRAVAstatin [Pravachol] 20 mg PO DAILY 02/08/18 12/12/18 12/12/18 History Carvedilol [Coreg] 12.5 mg PO Q12HR@0700,1900 #60 tab 08/03/18 12/12/18 08/04/18 07:00 Rx 12.5mg Furosemide [Lasix] 40 mg PO BID #60 tab 09/08/18 12/12/18 12/12/18 Rx Potassium Chloride E.r. [Klor-Con] 10 meq PO DAILY 11/22/18 12/12/18 12/12/18 History Aspirin 1 tab PO DAILY 12/12/18 12/12/18 12/11/18 History Cholecalciferol (Vitamin D3) 1 cap PO DAILY 12/12/18 12/12/18 12/12/18 History [Vitamin D3] Fish Oil/Borage/Flax/Om3,6,9#1 1 cap PO DAILY 12/12/18 12/12/18 12/12/18 History [Sigel 3-6-9 1,200 mg Softgel] Fluoxetine [Prozac] 1 cap PO DAILY 12/12/18 12/12/18 12/12/18 History Hydralazine [Apresoline] 25 mg PO DAILY 12/12/18 12/12/18 12/12/18 History Insulin Glargine,Hum.rec.anlog 20 units SUBQ DAILY 12/12/18 12/12/18 12/12/18 History [Lantus Solostar] Isosorbide Dinitrate [Isordil] 10 mg PO DAILY 12/12/18 12/12/18 12/12/18 History Levothyroxine [Synthroid] 1 tab PO DAILY 12/12/18 12/12/18 12/12/18 History Paliperidone [Invega] 1 tab PO HS 12/12/18 12/12/18 12/11/18 History Quetiapine [Seroquel] 600 mg PO HS 12/12/18 12/12/18 12/11/18 History Spironolactone 0.5 tab PO DAILY 12/12/18 12/12/18 12/12/18 History Vitamin B Complex & Vit C No.4 1 tab PO DAILY 12/12/18 12/12/18 12/12/18 History [Super B Complex] - History of Present Illness-CP Nature of Presenting Problem: 73 yof presents with c/o continues SOB and chest heaviness x one month. she was recently treated for PNA and for CHF with and admission to [facility]. Reports no radiation or associated symptoms other than SOB. As pt is waiting room awaiting room assignment sats were rechecked on room air and noted to be 99% with pulse of 93 Location: reports: substernal Chest Pain Radiation: reports: no radiation Quality of Pain: reports: other (heaviness) Severity in ED: mild Onset/Duration: other (1 month) Timing: still present Context/Activities at Onset: reports: none Modifying Factors: improves with: nothing Nitro Today/Relief: no nitro taken today Aspirin Treatment Today: no aspirin today Similar Symptoms Previously?: Yes Recently Seen Here or By Another Healthcare Provider: Yes Review of Systems - Adult - REVIEW OF SYSTEMS - ADULT Constitutional: reports: no symptoms reported. denies: see HPI, chills, fever, fatique, night sweats, weight gain, weight loss, other Eyes: reports: no symptoms reported. denies: see HPI, discharge, dry eyes, decreased vision, blurred vision, double vision, eye pain, redness, other Ears, Nose, Mouth & Throat: reports: no symptoms reported. denies: see HPI, ear discharge, ear pain, hearing loss, tinnitus, epistaxis, sinus problem, nose pain, loose teeth, mouth/dental pain, mouth swelling, hoarseness, throat pain, throat swelling, other Cardiovascular: reports: see HPI, chest pain, edema. denies: no symptoms reported, heart murmur, irregular heart rate, orthopnea, palpitations, poor circulation, PND, syncope, other Respiratory: reports: see HPI, cough, shortness of breath. denies: no symptoms reported, chronic cough, dyspnea on exertion, excessive sputum production, hemoptysis, pleurisy, wheezing, other Gastrointestinal: reports: no symptoms reported. denies: see HPI, abdominal pain, hematemesis, constipation, diarrhea, difficulty swallowing, frequent heartburn, nausea, poor appetite, rectal bleeding, vomiting, other Genitourinary: reports: no symptoms reported. denies: see HPI, dysuria, discharge, frequency, flank pain, frequent UTI's, hematuria, hesitency, incontinence, urinary retention, urgency, other Musculoskeletal: reports: no symptoms reported. denies: see HPI, bone pain, back pain, frequent leg cramps, joint pain, joint swelling, muscle aches, muscle weakness, neck pain, other Integumentary: reports: no symptoms reported. denies: see HPI, hives, hair loss, itching, mole changes, nail changes, rash, skin sores/ulcer, skin thicke heather, other Neurological: reports: no symptoms reported. denies: see HPI, ataxia, dizziness/vertigo, headache/migraines, loss of balance, numbness, paresthesia, seizure, slurred speech, syncope, tremors, other Psychiatric: reports: no symptoms reported. denies: see HPI, anxiety, anti- depressant use, alcohol/drug dependence, depression, emotional problems, insomnia, panic attacks, suicidal thoughts, other Endocrine: reports: no symptoms reported. denies: see HPI, change in skin pigment, excessive sweating, goiter, cold intolerance, heat intolerance, increased hunger, increased thirst, polyuria, other Hematologic/Lymphatic: reports: no symptoms reported. denies: see HPI, blood clots, easy bruising, low blood count, lymphedema, prolonged bleeding, swollen lymph nodes, transfusions, other Allergic/Immunologic: reports: no symptoms reported. denies: see HPI, allergic reactions, allergic rhinitis, asthma, eczema, food allergy, frequent infections, hay fever, hives, positive PPD, urticaria, other Past History - Adult - PAST MEDICAL HISTORY-ADULT Review of Records: reports: Nursing Assessment Review, Medications Reviewed, Social history reviewed & non-contributory. Major Childhood Illnesses: reports: denies history Cardiovascular: reports: CHF, HTN, hyperlipidemia, pacemaker (/defib) Respiratory: reports: asthma, COPD Gastrointestinal: reports: GERD Obstetrical/Gynecological: reports: other (breast cancer) Genitourinary: reports: kidney disease Musculoskeletal: reports: arthritis Neurological: reports: denies history Psychiatric: reports: schizophrenia Endocrine/Immune: reports: denies history, Diabetes, thyroid disorder Other Conditions: reports: denies history, cataract/glaucoma - PRIOR SURGERIES/PROCEDURES Surgical/Procedure History: reports: appendectomy, pacemaker (/defib), BTL, joint replacement (hip), other (cataract removal) - IMMUNIZATION STATUS Childhood Immunizations: See Nurse Assessment Flu Vaccine: See Nurse Assessment - FAMILY HISTORY Family History: reviewed, not pertinent Physical Exam-General - PHYSICAL EXAM-ADULT Initial Vital Signs Reviewed: Yes - CONSTITUTIONAL General Appearance: appears well, alert, no apparent distress - EYES Eyes: PERRL/EOMI, pink conjunctivae - HEAD, EARS, NOSE, MOUTH & THROAT HENMT: normocephalic/atraumatic, moist mucous membranes, normal ENT inspection - NECK Neck: non-tender, full range of motion, supple - RESPIRATORY Respiratory: chest non-tender, lungs clear, no pleuratic chest pain, no respiratory distress, no accessory muscle use, other (diminished BS in BLL) - CARDIOVASCULAR Cardiovascular: normal peripheral pulses, regular rate, rhythm, no gallop, no JVD, no murmur. negative: no edema - GASTROINTESTINAL (ABDOMEN) Abdominal Exam: normal bowel sounds, non tender, soft - LYMPHATIC Lymphatic: no adenopathy - MUSCULOSKELETAL Back Exam: normal inspection, no CVA tenderness, no vertebral tenderness Extremity: normal range of motion, non-tender, normal gait, normal inspection, pedal edema Peripheral Pulses: dorsalis-pedis (R): 2+, dorsalis-pedis (L): 2+ - SKIN Integumentary: normal color, normal turgor, warm/dry - NEUROLOGIC Neurologic: grossly normal - PSYCHIATRIC Psych/Mental Status: normal mood/affect, oriented x 3 - HEART Score HEART Score: History: Slightly Suspicious HEART Score: ECG: Normal HEART Score: Age: > or = 65 Years HEART Score: Risk Factors for Atherosclerotic Disease: > or = 3 Risk Factors or History of Atherosclerotic Disease HEART Score: Troponin: < or = Normal Limit Total HEART Score:: 4 Progress - PLAN OF CARE/RESULTS Progress/Plan/Lab Results: Vital Signs - 8 hr 12/12/18 15:00 Temperature 97.9 F Pulse Rate 91 H Respiratory Rate 19 Blood Pressure 117/76 O2 Sat by Pulse Oximetry 98 Laboratory Results - last 24 hr 12/12/18 12/12/18 12/12/18 15:35 15:35 15:35 WBC 6.87 RBC 3.53 L Hgb 10.4 L Hct 31.7 L MCV 89.8 MCH 29.5 MCHC 32.8 L RDW Std Deviation 18.2 H Plt Count 268 MPV 10.5 H Immature Gran % (Auto) 0.3 Neut % (Auto) 60.9 Lymph % (Auto) 17.6 L [place] % (Auto) 14.1 H Eos % (Auto) 6.7 Baso % (Auto) 0.4 Immature Gran # (Auto) 0.02 Neut # (Auto) 4.18 Lymph # (Auto) 1.21 [place] # (Auto) 0.97 H Eos # (Auto) 0.46 Baso # (Auto) 0.03 PT INR PTT (Actin FS) Sodium 133 L Potassium 4.2 Chloride 92 L Carbon Dioxide 27 Anion Gap 14 BUN 24 H Creatinine 1.3 H Estimated GFR/1.73 m2 49 BUN/Creatinine Ratio 18 Glucose 239 H Calculated Osmolality 278 Calcium 9.2 Total Bilirubin 0.38 AST 16 ALT 28 Alkaline Phosphatase 121 H Creatine Kinase 48 Troponin T [id number] Pept 3624 H Total Protein 7.2 Albumin 3.8 Globulin 3.4 Albumin/Globulin Ratio 1.1 12/12/18 12/12/18 15:35 15:35 WBC RBC Hgb Hct MCV MCH MCHC RDW Std Deviation Plt Count MPV Immature Gran % (Auto) Neut % (Auto) Lymph % (Auto) [place] % (Auto) Eos % (Auto) Baso % (Auto) Immature Gran # (Auto) Neut # (Auto) Lymph # (Auto) [place] # (Auto) Eos # (Auto) Baso # (Auto) PT 14.9 INR 1.15 PTT (Actin FS) 28.3 Sodium Potassium Chloride Carbon Dioxide Anion Gap BUN Creatinine Estimated GFR/1.73 m2 BUN/Creatinine Ratio Glucose Calculated Osmolality Calcium Total Bilirubin AST ALT Alkaline Phosphatase Creatine Kinase Troponin T < 0.010 [id number] Pept Total Protein Albumin Globulin Albumin/Globulin Ratio Orders Category Date Time Status Cardiac Monitoring DIRECTED Care 12/12/18 15:08 Active Oxygen Therapy- ED Nursing DIRECTED Care 12/12/18 15:08 Active Saline Loc NOW Care 12/12/18 15:08 Active CHEST-2 VIEWS [RAD] Stat Exams 12/12/18 15:08 Completed CBC WITH ELECTRONIC DIFF [HEME] Stat Lab 12/12/18 15:35 Completed CK PROFILE [SP CHEM] Stat Lab 12/12/18 15:35 Completed COMPREHENSIVE METABOLIC PANEL [CHEM] Stat Lab 12/12/18 15:35 Completed PRO B-NATRIURETIC PEPTIDE Stat Lab 12/12/18 15:35 Completed PROTIME WITH INR [COAG] Stat Lab 12/12/18 15:35 Completed PTT [COAG] Stat Lab 12/12/18 15:35 Completed TROPONIN T Stat Lab 12/12/18 15:35 Completed Aspirin Med 12/12/18 15:08 Discontinued 325 mg PO NOW ONE Furosemide [Lasix] Med 12/12/18 16:18 Discontinued 40 mg IV NOW ONE CP/SOB/Palp >45 yrs of Age Stat Oth 12/12/18 15:08 Ordered EKG [EKG] Stat Ther 12/12/18 15:08 Draft Result Diagrams: 12/12/18 15:35 12/12/18 15:35 - EKG 1 Time of EKG reading by physician:: 15:12 EKG Read and Signed by:: Cory Mendoza EKG Interpretation (*Must complete 3 of following elements*): Abnormal Rate: 92 Rhythm: atrial sensed ventricular paced rythm [place]: normal [place] Interval: normal ST Wave: normal Prior EKG Comparison: unchanged from prior - CONSULTS/PCP/HOSPITALIST Notification #1 *Consult/PCP/Hospitalist*: DR PRATT Time Discussed: 20:26 Consult Disposition: Admit Departure - Departure Date of Disposition Decision: 12/12/18 Time of Disposition Decision: 20:35 DIAGNOSIS: CHF (congestive heart failure), Renal insufficiency, Chest pain, Dyspnea Disposition: ADMITTED INPATIENT 09 Certified Medical Emergency: Emergent Condition: Stable Referrals and Follow-Ups: Krystal Jeffers [Primary Care Provider] - - Critical Care Note This patient required my direct & personal management of CC.: No Attestation - Physician/ RAMÓN Attestation Patient care was provided by Advanced Practice Provider:: Yes Advanced Practice Provider:: Margot Teague Advanced Practice Provider documentation review:: The Mid-level provider documentation, treatment plan and medical decision making was reviewed by the physician who agrees with all treatment and medical decision making by the MLP. The physician spent face to face time with patient:: No Advanced Practice Provider documentation review:: Supervising physician onsite and consulted in the evaluation and care of this patient. The physician did not have a face to face encounter with the patient.
[2018-12-12 17:30] LABS: BASO# 0.03 X1000 (0.0-0.2); BASO% 0.4 % (0.0-0.8); EOS# 0.46 X1000 (0.0-0.7); EOS% 6.7 % (0.0-10.0); HEMATOCRIT 31.7 % (37.0-47.0); HEMOGLOBIN 10.4 g/dL (12.0-16.0); IMM GRAN# 0.02 X1000 (0.0-0.04); IMM GRAN% 0.3 % (0.0-0.5); LYMPH# 1.21 X1000 (1.2-3.4); LYMPH% 17.6 % (20.5-51.1); MCH 29.5 PG (27-31); MCHC 32.8 g/dL (33-37); MCV 89.8 FL (81-99); MONO# 0.97 X1000 (0.11-0.59); MONO% 14.1 % (1.7-9.3); MPV 10.5 FL (7.4-10.4); NEUT# 4.18 X1000 (1.4-6.5); NEUT% 60.9 % (42.2-75.2); PLT 268 X1000 (130-400); RBC 3.53 XMIL (4.2-5.4); RDW 18.2 % (11.5-14.5); WBC 6.87 X1000 (4.8-10.8)
[2018-12-12 17:36] LABS: INR 1.15; PROTIME 14.9 Seconds (11.0-16.0)
[2018-12-12 17:37] LABS: PTT 28.3 Seconds (22.3-41.8)
[2018-12-12 17:55] LABS: ALB/GLOB RATIO 1.1; ALBUMIN 3.8 g/dL (3.5-5.0); CALCIUM 9.2 mg/dL (8.8-10.2); CREATININE 1.3 mg/dL (0.5-0.9); POTASSIUM 4.2 mmol/L (3.5-5.1); TOTAL BILIRUBIN 0.38 mg/dL (0.20-1.00); TOTAL PROTEIN 7.2 g/dL (6.3-8.3)
[2018-12-13] MEDS ORDERED: FLEXERIL PO ONE ×2 (00:02→00:21)
[2018-12-13] MEDS ORDERED: LASIX IV SCH (00:13)
[2018-12-13 06:37] LABS: CALCIUM 9.3 mg/dL (8.8-10.2); CREATININE 1.3 mg/dL (0.5-0.9); POTASSIUM 3.6 mmol/L (3.5-5.1)
--- NOTE | 2018-12-13 07:22 | HISTORY AND PHYSICAL ---
PRIMARY CARE PHYSICIAN: Unknown. OCEANOGRAPHER PHYSICAL: Dr. Jackson. CHIEF COMPLAINT: Shortness of breath. HISTORY OF PRESENT ILLNESS: 73-year-old female with a history of CHF with an EF of 30-35%, diabetes mellitus, hypertension, schizophrenia who presented to the emergency department with about a week history of worsening shortness of breath. The patient states she was having difficulty breathing. On further inquiry, the patient has been drinking a lot of water, about 2 large bottles, about 2-3 liters per day. She states that she was not feeling well and was also having some chest heaviness. She was evaluated in the emergency department and due to presenting symptoms, it was thought that she needed admission for further management. At the time of my evaluation, the patient denied any headache, fever, chills, hemoptysis, but complained of chest discomfort and shortness of breath. PAST MEDICAL HISTORY: 1. CHF, EF of 30-35%. 2. Diabetes mellitus type 2. 3. Hypertension. 4. Breast cancer. 5. Schizophrenia. PAST SURGICAL HISTORY: 1. Pacemaker defibrillator. 2. Bilateral mastectomy. 3. Appendectomy. 4. Cataract surgery. ALLERGIES: Keflex, penicillin, bee venom. CURRENT MEDICATIONS: 1. Aspirin 81 mg daily. 2. Carvedilol 12.5 mg p.o. b.i.d. 3. Fluoxetine 20 mg daily. 4. Lasix 40 mg p.o. b.i.d. 5. Hydralazine 25 mg daily. 6. Lantus SoloSTAR 20 units subcu daily. 7. Isosorbide dinitrate 10 mg daily. 8. Levothyroxine 25 mcg p.o. daily. 9. Pravastatin 20 mg p.o. daily. 10.Quetiapine 600 mg p.o. at bedtime. 11.Spironolactone 12.5 mg p.o. daily. SOCIAL HISTORY: No history of smoking, alcohol or illicit drug use. FAMILY HISTORY: No history of coronary artery disease. REVIEW OF SYSTEMS: Fourteen point review of systems as per HPI. Other systems negative. PHYSICAL EXAMINATION: GENERAL: Cooperative, friendly female. She is resting more comfortably now. VITAL SIGNS: Temperature 97.9 degrees, pulse 91, respiration 19, blood pressure 117/76. HEENT: Atraumatic, normocephalic. Extraocular movements intact. PERRLA. NECK: No masses. CHEST: Bibasilar rales. CARDIOVASCULAR: Regular rate and rhythm. ABDOMEN: Soft. Positive bowel sounds. EXTREMITIES: +1 edema. NEUROLOGICAL: She is awake, alert, oriented x3. : No bladder distention. SKIN: Warm. LABORATORY DATA: WBC 6.87, hemoglobin 10.4, hematocrit 31.7, platelets 268,000. Sodium 133, potassium 4.2, chloride 92, CO2 27, BUN 24, creatinine 1.3, glucose 239. ProBNP is 3,624. Chest x- ray shows stable cardiomegaly. ASSESSMENT: This is a 73-year-old female with a history of CHF, diabetes mellitus, hypertension, schizophrenia who presented to the emergency department with a one week history of progressive worsening shortness of breath. She was evaluated in the emergency department and clinically thought she was in heart failure, subsequently she required admission for further management. 1. Acute CHF exacerbation unspecified. 2. Diabetes mellitus type 2. 3. Hypertension. 4. Schizophrenia. PLAN: 1. We will admit the patient to the medical floor telemetry. 2. Continue with gentle diuresis with Lasix. 3. We will check an echocardiogram as one has not been done recently. 4. We will consult the home attendant. 5. Monitor blood glucose and put patient on sliding scale insulin regimen. 6. We will monitor blood pressure closely. 7. Restart antipsychotic agents. 8. We will put patient on DVT prophylaxis, SCDs. 9. We will continue to follow and reassess and make further recommendations based on patient's clinical course. cc: Sami Abbasi MD
[2018-12-13] MEDS: PRAVACHOL PO SCH (09:52)
[2018-12-13] MEDS: PROZAC PO SCH (09:52)
[2018-12-13] MEDS: COREG PO SCH ×2 (09:52→18:20)
[2018-12-13] MEDS: APRESOLINE PO SCH (09:52)
[2018-12-13] MEDS: VICON-C PO SCH (09:52)
[2018-12-13] MEDS: ALDACTONE PO SCH (09:53)
[2018-12-13] MEDS: ASPIRIN PO SCH ×3 (09:53→22:01)
[2018-12-13] MEDS: ISORDIL PO SCH (09:54)
[2018-12-13] MEDS: SYNTHROID PO SCH (09:54)
--- NOTE | 2018-12-13 11:26 | CARDIOLOGY CONSULTATION ---
DATE: 12/13/2018 REASON FOR CONSULTATION: Cardiology was consulted for heart failure. HISTORY OF PRESENT ILLNESS: Ms. Rasheeda Collazo is a 73-year-old lady with history of congestive heart failure, ejection fraction of 30% to 35%, diabetes, hypertension, and schizophrenia, who came to the emergency room with increasing shortness of breath and pedal edema. Since being in the hospital and being treated with IV Lasix, her pedal edema has improved. She feels better. Associated with shortness of breath, she also had chest heaviness. There are no palpitations. There is no dizziness or syncope. REVIEW OF SYSTEMS: A 14-point review of systems was done. GI: There is no history of nausea, vomiting, diarrhea. There is no history of hematemesis or melena. Central Nervous System: No focal weakness to suggest a CVA or TIA. : There is no dysuria or hematuria. PAST MEDICAL HISTORY: 1. Congestive heart failure. Systolic ejection fraction 30% to 35%. 2. Diabetes. 3. Hypertension. 4. Schizophrenia. 5. She had a Medtronic device implanted in 2008, and subsequently had a generator change on 12/05/2013. 6. Renal insufficiency. Creatinine varying from 1.3 to 2. 7. Carcinoma of the breast in the past. 8. Hyperlipidemia. 9. Last cardiac catheterization in 2014, left main was normal, LAD severe disease distally, extensive small-vessel disease, circumflex extensive small-vessel disease, RCA small-vessel disease. HOME MEDICATIONS: Aspirin 81 mg a day, Coreg 12.5 b.i.d., fluoxetine 20, Lasix 40 b.i.d., hydralazine 25 a day, Lantus SoloStar, isosorbide dinitrate 10 mg a day, pravastatin 20, levothyroxine 25, quetiapine 600 mg at bedtime, spironolactone 12.5 mg daily. SOCIAL HISTORY: She does not smoke, does not drink. PHYSICAL EXAMINATION: Vital Signs: Blood pressure was 120/80. Heart: First and second heart sounds were heard. There was no S3 gallop. Respiratory: Distant breath sounds, but no wheezing. Abdomen: Soft, nontender. There was no guarding or rigidity. Bowel sounds were heard. Extremities: Bilateral mild pedal edema. ASSESSMENT AND PLAN: Ms. Rasheeda Collazo is a 73-year-old lady with history of diffuse coronary artery disease, systolic heart failure, hypertension, schizophrenia, diabetes, renal insufficiency, who comes with complaints of increasing shortness of breath and pedal edema. Symptomatically, she has improved. ProBNP was 3624. Sodium 134, potassium 3.6, BUN 24, creatinine 1.3. RECOMMENDATIONS: 1. I had a detailed discussion with the patient in the past. She was on angiotensin-converting enzyme inhibitors, lisinopril. However, her kidney function had worsened, and she also said she had elevated potassium. Today, her BUN is 24, creatinine is 1.3, potassium was 3.6. Given her severe left ventricular dysfunction, diabetes, and heart failure, I will try her again on Entresto, see if this will help her. We will start her at 1 tablet twice daily, starting today. We will check her BMP for the next 3 days to make sure there is no hyperkalemia or worsening renal function. If there is an increase of creatinine by 25%, I would not be surprised. However, concern also is whether or not she will have a hyperkalemia. We will monitor that closely. 2. She has mild pedal edema. Symptomatically, she has improved significantly. We will put her back on her medications of Lasix 40 mg by mouth twice daily. 3. She is on Isordil 1 tablet and hydralazine 1 tablet daily. In the event that she does not tolerate the Entresto, then we will adjust the combination of hydralazine and isosorbide nitrate to BiDil. We will make these changes should she not tolerate Entresto. Thank you for the consult. Will follow hospital course. cc: Taye West MD
[2018-12-13] MEDS: HUMULIN R SUBQ SCH ×6 (13:00→22:01)
[2018-12-13] MEDS: ENTRESTO 24 MG-26 MG TABLET PO SCH ×2 (13:05→22:02)
--- NOTE | 2018-12-13 18:29 | PROGRESS NOTE ---
DATE: 12/13/2018 She was admitted with shortness of breath and congestive heart failure. She does feel better, feels like the swelling has gone down. EXAM: She is afebrile temperature 97.9 degrees, pulse 89, respirations 18, blood pressure 150/87. Pupils are equal round. Lungs are clear in all lung jimenez. Cardiovascular exam regular rhythm rate without murmur or S3. She has trace edema in her ankles and lower leg. ASSESSMENT AND PLAN: 1. Congestive heart failure with reduced ejection fraction. She was on FINESSE inhibitor or angiotensin converting enzyme inhibitor lisinopril. Her kidney function did worsen and had elevated potassium so going see if we can get her BUN and creatinine down to optimal, potassium is 3.6. She has severe left ventricular systolic dysfunction, underlying diabetes and would like to try Entresto. 2. Pedal edema is better with diuresis. 3. In the event she cannot take Entresto probably use hydralazine, Isordil combination and see how that works. 4. Diabetes mellitus type 2. Will follow pattern sugars. 5. Hypertension. 6. Schizophrenia. Continue her current medications. I do not see any change in her orders. She is on paliperidone extended release 6 mg at bedtime, she is on Seroquel 600 mg at bedtime, we just started her on Entresto which is sacubitril and valsartan and that was a . cc: Olaf Tapia MD
--- NOTE | 2018-12-13 18:42 | PROGRESS NOTE ---
DATE: 12/13/2018 HISTORY: Miss Collazo was admitted on 12/13, came in for heart failure. A 73-year-old lady with history of congestive heart failure. Ejection fraction last measured appeared to be 30% to 35%, diabetes mellitus type 2, hypertension, and schizophrenia. Came to the emergency room with increasing shortness of breath and pedal edema. Since being in the hospital and treated with IV Lasix, her pedal edema had improved and feels better. She has also had some chest heaviness, but no palpitations. No history of syncope or dizziness. PAST MEDICAL HISTORY: 1. Congestive heart failure with ejection fraction of 30% to 35%. 2. Diabetes mellitus type 2. 3. Hypertension. 4. Schizophrenia. 5. Medtronic device implanted in 2008. Subsequently, generator was changed in on 12/05/2013. 6. Renal insufficiency. Creatinine varying from 1.3 to 2. 7. Carcinoma of the breast in the past. 8. Hyperlipidemia. 9. Last cardiac cath in 2014. Left main was normal. LAD with severe disease distally. Extensive small vessel disease. Circumflex with extensive small vessel disease. RCA with small vessel disease. PHYSICAL EXAMINATION TODAY: vital signs: Temperature 97.9 degrees, pulse 89, respirations 18, blood pressure 115/87. heent: Pupils are equal and round. Lungs: Clear in all lung jimenez. Cardiovascular: Regular rhythm and rate without murmur or S3. Diminished pedal edema, by her report. ASSESSMENT AND PLAN: 1. Congestive heart failure with reduced ejection fraction and underlying small vessel coronary artery disease. She was on angio-converting enzyme, lisinopril. Kidney function worsened, so she had elevated potassium. Her BUN is 24, creatinine 1.3, potassium 3.6. She has severe left ventricular systolic dysfunction, so again want to try her on Entresto and see how she does. Check her BNP for the next 3 days to make sure there is no hyperkalemia or worsening renal function. If there is an increase in her creatinine, we will have to decide whether she will have hyperkalemia. 2. Mild pedal edema and some orthopnea and pulmonary venous hypertension. Continue Lasix 40 mg by mouth twice a day. 3. Small vessel coronary artery disease. She is on Isordil 1 tablet and hydralazine 1 tablet a day. In the event she does not tolerate Entresto, we will continue hydralazine and isosorbide nitrate which is BiDil. cc: Olaf Tapia MD
[2018-12-13] MEDS: INVEGA PO SCH (22:00)
[2018-12-13] MEDS: LASIX PO SCH (22:01)
[2018-12-13] MEDS: SEROQUEL PO SCH (22:04)
[2018-12-14 05:53] LABS: CALCIUM 8.7 mg/dL (8.8-10.2); CREATININE 1.2 mg/dL (0.5-0.9); MAGNESIUM 1.7 mg/dL (1.5-2.7); POTASSIUM 3.5 mmol/L (3.5-5.1)
[2018-12-14] MEDS: HUMULIN R SUBQ SCH ×4 (06:15→22:14)
[2018-12-14] MEDS: SYNTHROID PO SCH (06:16)
[2018-12-14] MEDS: COREG PO SCH ×2 (06:16→22:14)
[2018-12-14] MEDS: PRAVACHOL PO SCH (09:26)
[2018-12-14] MEDS: LASIX PO SCH ×2 (09:26→22:13)
[2018-12-14] MEDS: ISORDIL PO SCH (09:26)
[2018-12-14] MEDS: ENTRESTO 24 MG-26 MG TABLET PO SCH ×2 (09:26→22:14)
[2018-12-14] MEDS: PROZAC PO SCH (09:26)
[2018-12-14] MEDS: ALDACTONE PO SCH (09:26)
[2018-12-14] MEDS: VICON-C PO SCH (09:26)
[2018-12-14] MEDS: APRESOLINE PO SCH (09:26)
--- NOTE | 2018-12-14 16:28 | PROGRESS NOTE ---
DATE: 12/14/2018 SUBJECTIVE: Ms Collazo is breathing better. Swelling has gone down in her legs. She is hoping she gets to go home soon. She was started on Entresto. OBJECTIVE: Temp 98.3 degrees, pulse 83, respirations 14, blood pressure 106/60. Pupils are equal round. Lungs are clear in all lung jimenez. Cardiovascular regular rate without murmur or S3. Abdomen is soft. Skin is warm and dry. Urine output from yesterday was 3800 mL. Blood sugars 251, 87, 160. ASSESSMENT/PLAN: 1. Congestive heart failure. Reduced ejection fraction. She was on FINESSE inhibitor and angiotensin converting inhibitor so kidney function did worsen, so we waited to get a BUN and creatinine more optimal and was started on Entresto. So I would like see how she does. Follow her electrolytes in the morning. 2. Pedal edema, better. 3. Diabetes mellitus type 2. Sugar is not in good control. 4. Hypertension blood pressure. Blood pressure in good control. 5. Schizophrenia aware. Continue her current medications. LABORATORY DATA: Reviewed from today look good. Creatinine 1.2 down from 1.3. cc: Olaf Tapia MD
[2018-12-14] MEDS: SEROQUEL PO SCH (22:13)
[2018-12-14] MEDS: INVEGA PO SCH (22:14)
[2018-12-14] MEDS: ASPIRIN PO SCH (22:14)
[2018-12-15] MEDS: COREG PO SCH ×2 (06:19→18:25)
[2018-12-15] MEDS: SYNTHROID PO SCH (06:19)
[2018-12-15 06:28] LABS: CALCIUM 8.9 mg/dL (8.8-10.2); CREATININE 1.6 mg/dL (0.5-0.9); MAGNESIUM 1.8 mg/dL (1.5-2.7); POTASSIUM 3.9 mmol/L (3.5-5.1)
[2018-12-15] MEDS: HUMULIN R SUBQ SCH ×4 (06:48→21:29)
--- NOTE | 2018-12-15 08:51 | Diag Imaging Result Doc PS360 ---
CHEST-2 VIEWS - 12/15/2018 INDICATION: chf COMPARISON: 12/12/2018 FINDINGS: Stable biventricular pacemaker. Stable mild cardiomegaly. Stable mild indistinctness of the pulmonary vascularity which may suggest mild edema. Stable trace bilateral pleural effusions. IMPRESSION: No change from prior. Electronically signed by Ki Juan 12/15/2018 8:49 AM
[2018-12-15] MEDS: LASIX PO SCH ×2 (10:05→21:28)
[2018-12-15] MEDS: ENTRESTO 24 MG-26 MG TABLET PO SCH ×2 (10:05→21:28)
[2018-12-15] MEDS: PROZAC PO SCH (10:05)
[2018-12-15] MEDS: PRAVACHOL PO SCH (10:05)
[2018-12-15] MEDS: VICON-C PO SCH (10:05)
[2018-12-15] MEDS: ISORDIL PO SCH (10:06)
[2018-12-15] MEDS: ALDACTONE PO SCH (10:06)
--- NOTE | 2018-12-15 12:31 | PROGRESS NOTE ---
DATE: 12/15/2018 SUBJECTIVE: Ms. Collazo is breathing better. Her legs have decreased swelling. She feels good. OBJECTIVE: Vital Signs: Temp 97.6 degrees, pulse 71, respirations 20, blood pressure 100/59. HEENT: Pupils are equal and round. Lungs: Clear in all lung jimenez. Cardiovascular: Regular rhythm and rate without murmur or S3. Urine output was 5100 mL. IMAGING: Chest x-ray from this morning shows really no change. Stable biventricular pacemaker. Stable mild cardiomegaly. Stable mild indistinctness of pulmonary vascularity, which may suggest mild pulmonary edema. Trace bilateral pleural effusions. LABORATORY DATA: Her lab from this morning shows sodium 136, potassium 3.9, chloride 99, BUN 27, creatinine went up to 1.6 from 1.2. ASSESSMENT AND PLAN: 1. Hyponatremia. That has resolved, but her creatinine did go up to 1.6, so we started Entresto, so we will check her lab again in the morning. Want to make sure her renal function does not decline much. 2. Congestive heart failure. Started her on Entresto. Will see if her kidneys will tolerate that. Her pedal edema is better. 3. Diabetes mellitus type 2. Sugar is under good control. 4. Hypertension. Blood pressure under good control. 5. Schizophrenia. Aware. Continue present medication. 6. She has a Medtronic device implanted in 2008, and had a generator change on 12/05/2013. 7. Carcinoma of the breast in the past. 8. Hyperlipidemia. 9. Last heart catheterization was in 2014. Left main was normal, left LAD with severe disease distally, extensive small vessel disease, circumflex with extensive small vessel disease, right coronary artery with small vessel disease. REVIEW OF ORDERS: She is on Coreg 12.5 mg every 12 hours, she is on Lasix 40 mg b.i.d., she is on isosorbide dinitrate 10 mg p.o. daily, Synthroid 25 mcg daily, paliperidone ER 6 mg at bedtime, Pravachol 20 mg a day, Seroquel 600 mg p.o. at bedtime, and then her Entresto 1 twice a day, spironolactone 12.5 mg daily. cc: Olaf Tapia MD
[2018-12-15] MEDS: ASPIRIN PO SCH (21:28)
[2018-12-15] MEDS: SEROQUEL PO SCH (21:28)
[2018-12-15] MEDS: INVEGA PO SCH (21:28)
[2018-12-16] MEDS: HUMULIN R SUBQ SCH ×4 (06:20→20:50)
[2018-12-16] MEDS: COREG PO SCH ×2 (06:35→19:12)
[2018-12-16] MEDS: SYNTHROID PO SCH (06:36)
[2018-12-16 08:27] LABS: CALCIUM 8.8 mg/dL (8.8-10.2); CREATININE 1.5 mg/dL (0.5-0.9); MAGNESIUM 1.8 mg/dL (1.5-2.7); POTASSIUM 3.9 mmol/L (3.5-5.1)
--- NOTE | 2018-12-16 08:33 | PROGRESS NOTE ---
DATE: 12/16/2018 SUBJECTIVE: She is sitting up eating breakfast. States she feels much better, breathing comfortably. Swelling has gone down in her legs. OBJECTIVE: Temperature 98.1 degrees, pulse 80, respirations 20, blood pressure 107/62. Pupils are equal round. Lungs are clear in all lung jimenez. Cardiovascular: Regular rate without murmur or S3. Abdomen is soft. Skin is warm. LABORATORY DATA: Blood sugars 128, 220 and 140. ASSESSMENT AND PLAN: 1. Hyponatremia. Her creatinine had started her on Entresto. Creatinine 1.6. So lab is pending right now. Clinically doing much better. Her chest x-ray from yesterday showed no change. 2. She has a biventricular pacemaker with mild cardiomegaly. 3. Hypertension. 4. Schizophrenia. 5. Renal insufficiency. Creatinine varies from 1.3 to 2, was up to 1.6 yesterday. Hopefully, she can go home today. We will see what her lab results are this. cc: Olaf Tapia MD MTDD
[2018-12-16] MEDS: PROZAC PO SCH (09:27)
[2018-12-16] MEDS: ALDACTONE PO SCH (09:27)
[2018-12-16] MEDS: ENTRESTO 24 MG-26 MG TABLET PO SCH ×2 (09:27→20:52)
[2018-12-16] MEDS: ISORDIL PO SCH (09:27)
[2018-12-16] MEDS: VICON-C PO SCH (09:27)
[2018-12-16] MEDS: PRAVACHOL PO SCH (09:28)
[2018-12-16] MEDS: LASIX PO SCH (09:28)
[2018-12-16] MEDS: ASPIRIN PO SCH (20:51)
[2018-12-16] MEDS: SEROQUEL PO SCH (20:51)
[2018-12-16] MEDS: INVEGA PO SCH (20:52)
[2018-12-17] MEDS: HUMULIN R SUBQ SCH ×2 (06:12→11:24)
[2018-12-17] MEDS: SYNTHROID PO SCH (06:17)
[2018-12-17] MEDS: COREG PO SCH (06:17)
[2018-12-17 07:25] LABS: CALCIUM 7.8 mg/dL (8.8-10.2); CREATININE 1.6 mg/dL (0.5-0.9); POTASSIUM 3.8 mmol/L (3.5-5.1)
[2018-12-17] MEDS: ALDACTONE PO SCH (08:41)
[2018-12-17] MEDS: ISORDIL PO SCH (08:41)
[2018-12-17] MEDS: VICON-C PO SCH (08:41)
[2018-12-17] MEDS: ENTRESTO 24 MG-26 MG TABLET PO SCH (08:41)
[2018-12-17] MEDS: PRAVACHOL PO SCH (08:42)
[2018-12-17] MEDS: PROZAC PO SCH (08:42)
[2018-12-17] MEDS ORDERED: LASIX PO SCH (09:00)
[2018-12-17 12:50] VITALS: BP 111/62
--- NOTE | 2018-12-17 13:14 | DISCHARGE SUMMARY ---
ADMISSION DATE: 12/13/2018 DISCHARGE DATE: HISTORY OF PRESENT ILLNESS: She is a patient of Dr. Krystal Downing and followed by Dr. Jackson. A 73-year-old with history of congestive heart failure, ejection fraction of 30 to 35 percent, diabetes mellitus, hypertension, schizophrenia, who presented to the emergency department with about a week history of worsening shortness of breath. The patient states she has been having difficulty breathing. On further inquiry, she had been drinking a lot of water, 2 large bottles, 2 to 3 L a day and she also states not feeling well and has some chest heaviness. Evaluated in the emergency room with presenting symptoms, and so was admitted. PAST MEDICAL HISTORY: 1. Congestive heart failure, ejection fraction 30 to 35 present, so congestive heart failure with reduced ejection fraction. 2. Diabetes mellitus type 2. 3. Hypertension. 4. Breast cancer. 5. Schizophrenia. PAST SURGICAL HISTORY: 1. Pacemaker/defibrillator. 2. Bilateral mastectomy. 3. Appendectomy. 4. Cataract surgery. ALLERGIES: Keflex, penicillin, and bee venom. ADMISSION DIAGNOSIS: Acute congestive heart failure exacerbation. HOSPITAL COURSE: It was decided we would try some Entresto which is valsartan and sacubitril. Cardiology, Dr. West was following, and her BUN of 24, creatinine 1.3, potassium is 3.6. She was on angiotensin-converting enzyme inhibitor, lisinopril, so we held that for 36 hours and tried her on the Entresto at the lowest dose. She seemed to do well. She had some hyponatremia early on. She remained on the spironolactone and blood sugars look good, felt she could go home. Follow up with Cardiology in a couple weeks. DISCHARGE MEDICATIONS: Aspirin 81 mg a day, Coreg 12.5 mg twice a day, Prozac 20 mg a day, Lasix 40 mg a day, Synthroid 25 mcg a day. She takes paliperidone which is Invega 6 mg p.o. at bedtime, Pravachol 20 mg a day, and she is on quetiapine 600 mg at bedtime, Entresto 24-26 mg p.o. b.i.d., Aldactone 12.5 mg a day, and Vicon 1 a day. DISCHARGE DISPOSITION: We will discharge her home. FOLLOWUP: With primary care, manager cardiovascular in 2 weeks. cc: lOaf Tapia MD
== END 2018-12-17 13:29 | disposition home or self-care (01) | DRG 292 ==
LOC: ED 14:40 → SUATTDRO 12-13 00:24 → EDIPHOLD 12-13 00:24 → 1N 12-13 06:34
PROVIDERS: ATTEND Emergency Medicine